=== PATIENT | female | born 1960 | race Caucasian/White ===

== ENCOUNTER 2016-02-26 11:20 | Emergency (ER) | payer MEDICAID ==
[2016-02-26] MEDS ORDERED: methylPREDNISolone SUCCINATE 125 MG/2 ML VIAL IVP STA (12:31)
[2016-02-26] MEDS ORDERED: PROCHLORPERAZINE 10 MG/2 ML VIAL IVP STA (12:31)
[2016-02-26] MEDS ORDERED: diphenhydrAMINE INJ 50 MG/ML VIAL IVP STA (12:31)
[2016-02-26] MEDS ORDERED: SODIUM CHLORIDE 0.9% 1,000 ML IV ONE ×2 (12:31→12:39)
[2016-02-26] MEDS ORDERED: ONDANSETRON 4 MG/2 ML VIAL IVP STA (12:34)
[2016-02-26] MEDS ORDERED: methylPREDNISolone SUCCINATE 125 MG/2 ML VIAL IVP ONE (12:39)
[2016-02-26] MEDS ORDERED: diphenhydrAMINE INJ 50 MG/ML VIAL ONE (12:39)
[2016-02-26] MEDS ORDERED: ONDANSETRON 4 MG/2 ML VIAL ONE (12:39)
[2016-02-26] MEDS ORDERED: PROCHLORPERAZINE 10 MG/2 ML VIAL ONE (12:39)
== END 2016-02-26 14:30 | disposition home or self-care (01) ==
DX: G43.909 Migraine, unspecified, not intractable, without status migrainosus (principal); D49.7 Neoplasm of unspecified behavior of endocrine glands and other parts of nervous system; J44.9 Chronic obstructive pulmonary disease, unspecified; J45.909 Unspecified asthma, uncomplicated; Z87.891 Personal history of nicotine dependence

== ENCOUNTER 2016-04-08 | Outpatient (CLI) | payer MEDICAID | END 2016-04-08 09:13 | disposition critical access hospital (66) | DX: N93.9 Abnormal uterine and vaginal bleeding, unspecified (principal) | CPT/HCPCS: A0425; A0429 ==

== ENCOUNTER 2016-04-08 09:30 | Emergency (ER) | payer MEDICAID | END 2016-04-08 11:05 | disposition home or self-care (01) | DX: S31.41XA Laceration without foreign body of vagina and vulva, initial encounter (principal); X58.XXXA Exposure to other specified factors, initial encounter; Z85.41 Personal history of malignant neoplasm of cervix uteri; J44.9 Chronic obstructive pulmonary disease, unspecified; J45.909 Unspecified asthma, uncomplicated; K21.9 Gastro-esophageal reflux disease without esophagitis; M54.9 Dorsalgia, unspecified; G89.29 Other chronic pain; Z87.891 Personal history of nicotine dependence ==

== ENCOUNTER 2016-04-17 17:30 | Outpatient (CLI) | payer MEDICAID ==
[2016-04-17] MEDS ORDERED: IOPAMIDOL-300 100 ML VIAL IVP ONE (19:37)
== END 2016-04-17 17:31 | disposition home or self-care (01) ==
DX: G43.909 Migraine, unspecified, not intractable, without status migrainosus (principal)
CPT/HCPCS: 70460; Q9967

== ENCOUNTER 2016-06-07 23:41 | Emergency (ER) | payer MEDICAID ==
[2016-06-07] MEDS ORDERED: oxyCOD/ACETAMIN 5 MG/325 MG TABLET PO STA (23:53)
[2016-06-08] MEDS ORDERED: oxyCOD/ACETAMIN 5 MG/325 MG TABLET PO ONE (00:05)
== END 2016-06-08 01:24 | disposition home or self-care (01) ==
DX: M23.92 Unspecified internal derangement of left knee (principal); Y93.E6 Activity, residential relocation; R03.0 Elevated blood-pressure reading, without diagnosis of hypertension; Z87.891 Personal history of nicotine dependence
CPT/HCPCS: 73564; 99283; A9270

== ENCOUNTER 2016-06-26 18:50 | Outpatient (CLI) | payer MEDICAID ==
--- NOTE | 2016-06-27 10:22 | Ultrasound Report ---
ABDOMINAL ULTRASOUND: 06/26/2016 CLINICAL INDICATION: Chronic pain. TECHNIQUE: Real-time scanning was performed with sales and marketing representative static images obtained. FINDINGS: The liver is enlarged, measuring 19 cm, with diffuse increase of echogenicity, compatible with fatty infiltration. No focal parenchymal lesion is seen. No intrahepatic biliary dilatation is present. The common bile duct measures 9 mm. The patient is status post cholecystectomy. The panc reas is obscured by bowel gas. The kidneys are unremarkable, with the right measuring 11.0 cm and th e left measuring 9.7 cm. The spleen measures 8.6 cm, and demonstrates normal echotexture. The visua lized abdominal aorta is normal in caliber. The inferior vena cava is unremarkable. No free fluid i s present. IMPRESSION: FATTY INFILTRATION OF THE LIVER. CHANGES OF CHOLECYSTECTOMY. JOB #: [id number] EXT JOB #:[id number]
== END 2016-06-26 18:51 | disposition home or self-care (01) ==
LOC: DI 18:50
PROVIDERS: ATTEND Physician Assistant
DX: K76.0 Fatty (change of) liver, not elsewhere classified (principal); Z90.49 Acquired absence of other specified parts of digestive tract
CPT/HCPCS: 76700

== ENCOUNTER 2016-07-03 10:29 | Outpatient (CLI) | payer MEDICAID | END 2016-07-03 10:30 | disposition home or self-care (01) | DX: J44.9 Chronic obstructive pulmonary disease, unspecified (principal) ==

== ENCOUNTER 2016-07-24 10:45 | Outpatient (CLI) | payer MEDICAID ==
--- NOTE | 2016-07-24 13:44 | XRAY Report ---
THREE VIEW LEFT KNEE: 07/24/2016 CLINICAL INDICATION: Pain. FINDINGS: Standing AP, lateral, and sunrise views of the left knee are compared to previous films of 06/08/2016. There is no evidence of fracture or dislocation. The joint spaces are preserved. No effusion is prese nt. IMPRESSION: NORMAL LEFT KNEE. JOB #: [id number] EXT JOB #:[id number]
== END 2016-07-24 10:46 | disposition home or self-care (01) ==
LOC: DI.N 10:45
PROVIDERS: ATTEND Physician Assistant
DX: M25.562 Pain in left knee (principal)

== ENCOUNTER 2016-09-09 13:19 | Outpatient (CLI) | payer MEDICAID ==
[2016-09-09 19:44] LABS: BASOPHILS # (AUTO) 0.1 10^3/uL (0.0-0.1); BASOPHILS % (AUTO) 1.8 %; EOSINOPHILS # (AUTO) 0.2 10^3/uL (0.0-0.7); EOSINOPHILS % (AUTO) 4.8 %; HCT - HEMATOCRIT 38.7 % (37.0-47.0); HGB - HEMOGLOBIN 12.6 g/dL (12.0-16.0); LYMPHOCYTES # (AUTO) 1.4 10^3/uL (1.5-3.5); LYMPHOCYTES % (AUTO) 30.8 %; MEAN CORPUSCULAR HEMOGLOBIN 30.1 pg (27.0-31.0); MEAN CORPUSCULAR HGB CONC 32.6 g/dL (32.0-36.0); MEAN CORPUSCULAR VOLUME 92.3 fL (81.0-99.0); MONOCYTES # (AUTO) 0.4 10^3/uL (0.0-1.0); MONOCYTES % (AUTO) 8.7 %; NEUTROPHILS # (AUTO) 2.5 10^3/uL (1.5-6.6); NEUTROPHILS % (AUTO) 53.9 %; RED BLOOD COUNT 4.19 10^6/uL (4.20-5.40); RED CELL DISTRIBUTION WIDTH 14.3 % (12.0-15.0); UNCORRECTED WHITE BLOOD COUNT 4.6 x10^3/uL; WHITE BLOOD COUNT 4.6 x10^3/uL (4.8-10.8)
[2016-09-09 19:54] LABS: ALBUMIN/GLOBULIN RATIO 1.1 (1.0-2.2); BILIRUBIN,TOTAL 0.5 mg/dL (0.2-1.0); BUN - BLOOD UREA NITROGEN 16 mg/dL (6-20); CALCIUM 8.7 mg/dL (8.5-10.3); CARBON DIOXIDE - CO2 28 mmol/L (21-32); CHLORIDE 106 mmol/L (101-111); CHOL/HDL RATIO 3.3 (<4.4); CHOLESTEROL 122 mg/dL; CREATININE 0.7 mg/dL (0.4-1.0); GFR - MDRD 87 (>89); GLUCOSE 93 mg/dL (70-100); HDL CHOLESTEROL 37 mg/dL; LDL/HDL RATIO 1.7 (<4.4); SODIUM 139 mmol/L (135-145); TOTAL PROTEIN 6.9 g/dL (6.7-8.2); TRIGLYCERIDES 103 mg/dL; VLDL CHOLESTEROL 21 mg/dL
== END 2016-09-09 13:20 | disposition home or self-care (01) ==
LOC: LAB.N 13:19
PROVIDERS: ATTEND Physician Assistant
DX: I10 Essential (primary) hypertension (principal); B19.20 Unspecified viral hepatitis C without hepatic coma; J44.9 Chronic obstructive pulmonary disease, unspecified; Z87.891 Personal history of nicotine dependence
CPT/HCPCS: 36415; 80053; 80061; 84443; 85025

== ENCOUNTER 2017-03-14 21:05 | Emergency (ER) | payer MEDICAID ==
[2017-03-14] MEDS ORDERED: oxyCODONE 5 MG TABLET PO STA (21:31)
[2017-03-14] MEDS ORDERED: CYCLOBENZAPRINE 10 MG TABLET PO STA (21:31)
--- NOTE | 2017-03-14 21:33 | ED Physician Documentation ---
History of Present Illness - Stated complaint Stated Complaint: FALL OFF PORCH - Chief complaint Chief Complaint: General - History obtained from History obtained from: Patient, Family - History of Present Illness Timing: How many days ago (2) Pain level max: 10 Pain level now: 10 Improved by: rest Worsened by: movement - Additonal information Additional information: Patient is a 57-year-old female who presents to the emergency department after a fall at home 2 days ago. Fell backwards off a porch onto a metal bar. Initially had some discomfort but is worsened over the past several days. Has been taking Motrin at home without relief. Review of Systems Constitutional: denies: Fever, Chills Nose: denies: Rhinorrhea / runny nose, Congestion Throat: denies: Sore throat Cardiac: denies: Chest pain / pressure Respiratory: denies: Dyspnea, Cough, Hemoptysis, Wheezing GI: denies: Abdominal Pain, Nausea, Vomiting, Diarrhea Skin: denies: Rash Musculoskeletal: denies: Neck pain Neurologic: denies: Focal weakness, Numbness, Headache PD PAST MEDICAL HISTORY - Past Medical History Past Medical History: Yes Respiratory: Asthma, COPD Neuro: Headache/migraine Endocrine/Autoimmune: None GI: GERD : None Psych: Depression, Anxiety Musculoskeletal: Fatigue, Chronic back pain Derm: None - Past Surgical History Past Surgical History: Yes 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, 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 - Present Medications Home Medications: Ambulatory Orders Medication Instructions Recorded Confirmed buPROPion [Wellbutrin Sr] 150 mg PO BID 04/08/16 03/14/17 Albuterol Sulf [Ventolin Hfa 2 puffs PO PRN PRN 03/14/17 03/14/17 Inhaler] Cyclobenzaprine [Flexeril] 10 mg PO TID PRN #20 tablet 03/14/17 Oxycodone HCl/Acetaminophen 1 - 2 each PO Q6H PRN #10 tablet 03/14/17 [Percocet 5-325 mg Tablet] - Allergies Allergies/Adverse Reactions: Allergies Allergy/AdvReac Type Severity Reaction Status Date / Time acetaminophen [From Vicodin] Allergy Rash Verified 03/14/17 21:15 hydrocodone bitartrate * Allergy Rash Verified 03/14/17 21:15 [From Vicodin] - Social History Does the pt smoke?: No Smoking Status: Never smoker Does the pt drink ETOH?: No Does the pt have substance abuse?: No - Immunizations Immunizations are current?: Yes - POLST Patient has POLST: No PD ED PE NORMAL - Vitals Vital signs reviewed: Yes - General General: Alert and oriented X 3, No acute distress, Well developed/nourished - HEENT HEENT: Atraumatic, PERRL, Moist mucous membranes - Neck Neck: Supple, no meningeal sign, No bony TTP, Other (FROM without pain) - Cardiac Cardiac: RRR - Respiratory Respiratory: No respiratory distress, Clear bilaterally - Abdomen Abdomen: Soft, Non tender, Non distended - Back Back: No spinal TTP (No midline tenderness. There is paraspinal tenderness upper thoracic to mid lumbar spine, left side. Also tenderness over the left posterior ribs, approximately 6 through 10. No crepitus. No bruising.) - Extremities Extremities: No deformity, Normal ROM s pain - Neuro Neuro: Alert and oriented X 3 Results - Vitals Vitals: Vital Signs - 24 hr 03/14/17 03/14/17 21:07 22:51 Temperature 36.3 C L 36.6 C Heart Rate 94 85 Respiratory 17 18 Rate Blood Pressure 169/102 H 132/88 H O2 Saturation 100 98 Oxygen O2 Source Room air - Rads (name of study) Left rib with chest x-ray Radiology: Prelim report reviewed, EMP read contemporaneously, See rad report ( No acute abnormality) PD MEDICAL DECISION MAKING - ED course Complexity details: reviewed results, re-evaluated patient, considered differential, d/w patient, d/w family ED course: Patient is a 57-year-old female who presents to the emergency department with what appears to be a back strain after a fall. No acute findings on x-ray. No pneumothorax, hemothorax. No evidence of spinal fracture. Pain well controlled here. Will place on pain medication and muscle relaxants for home and follow-up with her PCP. Ambulating well. No neurological deficits. No evidence of cauda equina or epidural abscess. Patient counseled regarding signs and symptoms for which I believe and urgent re-evaluation would be necessary. Patient with good understanding of and agreement to plan and is comfortable going home at this time This document was made in part using voice recognition software. While efforts are made to proofread this document, sound alike and grammatical errors may occur. Departure - Departure Disposition: Home, Self Care Clinical Impression: Back strain Qualifiers: Encounter type: initial encounter Qualified Code(s): S39.012A - Strain of muscle, fascia and tendon of lower back, initial encounter Condition: Good Instructions: ED Sprain Strain Lumbar Follow-Up: your,doctor in 1 week [Other] Prescriptions: Cyclobenzaprine [Flexeril] 10 mg PO TID PRN #20 tablet PRN Reason: Spasms Oxycodone HCl/Acetaminophen [Percocet 5-325 mg Tablet] 1 - 2 each PO Q6H PRN # 10 tablet PRN Reason: pain Comments: Return if you worsen. This should improve over the next few days. Do not drink alcohol or drive while on narcotic pain medicine. Note that many narcotic pain relievers also contain tylenol/acetaminophen. Please ensure that your total dose of acetaminophen from all sources does not exceed 3 grams (3000mg) per day. You may constipated on this medication, take a stool softener such as "Colace" twice a day while you are on it. Also recommend a gfne-gza-tgjrybn laxative such as senna or MiraLAX any day that you do not have a bowel movement. If you received narcotic pain medication in the emergency department, do not drive or operate machinery for the next 24 hours. Discharge Date/Time: 03/14/17 22:51
[2017-03-14] MEDS ORDERED: KETOROLAC 60 MG/2 ML VIAL IM STA (22:28)
--- NOTE | 2017-03-14 22:35 | XRAY Report ---
EXAM: LEFT RIB RADIOGRAPHY EXAM DATE: 03/14/2017 10:09 PM. CLINICAL HISTORY: Fall 2 days ago. Left lower rib pain. COMPARISON: 07/03/2016. TECHNIQUE: 1 view of the chest and 4 views of the ribs. FINDINGS: Bones: Normal. No fracture or bone lesion. Lungs: No focal opacities. No pneumothorax. No pleural effusions. Mediastinum: Heart and mediastinal contours are unremarkable. Other: None. IMPRESSION: Normal chest and rib radiography. [facility] Referring Provider Line: [phone] SITE ID: [id number]
[2017-03-14 22:52] VITALS: BP 132/88
== END 2017-03-14 22:51 | disposition home or self-care (01) ==
LOC: ED 21:05
DX: S39.012A Strain of muscle, fascia and tendon of lower back, initial encounter (principal); W17.89XA Other fall from one level to another, initial encounter; W22.09XA Striking against other stationary object, initial encounter; Y92.008 Other place in unspecified non-institutional (private) residence as the place of occurrence of the external cause
CPT/HCPCS: 71101; 96372; 99283; A9270

== ENCOUNTER 2017-07-29 18:34 | Emergency (ER) | payer MEDICAID | END 2017-07-29 19:28 | disposition left against medical advice (07) | LOC: ED 18:34 | DX: Z53.21 Procedure and treatment not carried out due to patient leaving prior to being seen by health care provider (principal) ==

== ENCOUNTER 2017-08-28 22:27 | Emergency (ER) | payer MEDICAID ==
[2017-08-28] MEDS ORDERED: SODIUM CHLORIDE 0.9% 1,000 ML IV ONE (22:47)
[2017-08-28] MEDS ORDERED: METOCLOPRAMIDE 10 MG/2 ML VIAL IVP STA (22:47)
[2017-08-28] MEDS ORDERED: diphenhydrAMINE INJ 50 MG/ML VIAL IVP STA (22:47)
[2017-08-28] MEDS ORDERED: KETOROLAC 60 MG/2 ML VIAL IVP STA (22:47)
--- NOTE | 2017-08-28 23:10 | ED Physician Documentation ---
PD HPI HEADACHE - Stated complaint Stated Complaint: HEADACHE/NAUSEA - Chief complaint Chief Complaint: Neuro - History obtained from History obtained from: Patient - History of Present Illness Timing - onset: How many days ago (2) Timing - details: Gradual onset, Still present Quality: Aching Associated symptoms: Nausea. No: Fever, Stiff neck, Vomiting, Weakness, Syncope Improved by: Dark room Worsened by: Light, Noise Similar symptoms before: Diagnosis Recently seen: Not recently seen - Additional information Additional information: Patient is a 57 year old female with a history of migraines who is presenting to the emergency department for a headache. Patient states that it is like her similar headaches but it will not go away. Patient denies any neurological deficits. Patient states that it started slowly and became progressively worse. Review of Systems Ten Systems: 10 systems reviewed and negative Constitutional: denies: Fever, Chills Eyes: reports: Photophobia Neurologic: reports: Headache. 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 - Present Medications Home Medications: Ambulatory Orders Medication Instructions Recorded Confirmed buPROPion [Wellbutrin Sr] 150 mg PO BID 04/08/16 08/28/17 Albuterol Sulf [Ventolin Hfa 2 puffs PO PRN PRN 03/14/17 08/28/17 Inhaler] Cyclobenzaprine [Flexeril] 10 mg PO TID PRN #20 tablet 03/14/17 08/28/17 Oxycodone HCl/Acetaminophen 1 - 2 each PO Q6H PRN #10 tablet 03/14/17 08/28/17 [Percocet 5-325 mg Tablet] - Allergies Allergies/Adverse Reactions: Allergies Allergy/AdvReac Type Severity Reaction Status Date / Time acetaminophen [From Vicodin] Allergy Rash Verified 08/28/17 22:38 hydrocodone bitartrate * Allergy Rash Verified 08/28/17 22:38 [From Vicodin] - Social History Does the pt smoke?: No Smoking Status: Never smoker Does the pt drink ETOH?: No Does the pt have substance abuse?: No - Immunizations Immunizations are current?: Yes - POLST Patient has POLST: No PD ED PE NORMAL - Vitals Vital signs reviewed: Yes - General General: Alert and oriented X 3 - HEENT HEENT: Atraumatic - Neck Neck: Supple, no meningeal sign - Cardiac Cardiac: RRR - Respiratory Respiratory: No respiratory distress - Abdomen Abdomen: Non distended - Derm Derm: Normal color, Warm and dry - Extremities Extremities: No deformity - Neuro Neuro: Alert and oriented X 3, insurance account executive 2-12 intact, No motor deficit, Normal speech Eye Opening: Spontaneous Motor: Obeys Commands Verbal: Oriented GCS Score: 15 PD ED PE EXPANDED - General General: Alert, In Pain Results - Vitals Vitals: Vital Signs - 24 hr 08/28/17 22:37 Temperature 36.8 C Heart Rate 100 Respiratory 18 Rate Blood Pressure 135/89 H O2 Saturation 100 Oxygen O2 Source Room air PD MEDICAL DECISION MAKING - ED course Complexity details: reviewed old records, reviewed results, re-evaluated patient , considered differential, d/w patient ED course: Patient was seen and examined at bedside. Patient was treated with ns bolus, toradol, reglan and bendaryl. Patient was allowed to rest and slept for about two hours. When patient was woken up she stated that she still had some pain. Patient would best benefit from sleep and was stable for discharge home. Patient had no sign of infection or neurological deficits. - Sepsis Event Vital Signs: Vital Signs - 24 hr 08/28/17 22:37 Temperature 36.8 C Heart Rate 100 Respiratory 18 Rate Blood Pressure 135/89 H O2 Saturation 100 Oxygen O2 Source Room air Departure - Departure Disposition: 01 Home, Self Care Clinical Impression: Headache, Migraine Condition: Good Instructions: ED Headache Migraine Follow-Up: primary,care provider [Other] - Within 3 Days Comments: Your symptoms today are being caused by a migraine headache. the most important things that you can do is to stay well hydrated and get plenty of sleep. You should follow up with your doctor if symptoms persist. You may return to the emergency department at any time for new, worsening or uncontrollable symptoms.
[2017-08-29 00:56] VITALS: BP 129/71
== END 2017-08-29 00:45 | disposition home or self-care (01) ==
LOC: ED 22:27
DX: G43.909 Migraine, unspecified, not intractable, without status migrainosus (principal)
CPT/HCPCS: 96361; 96374; 96375; 99283; 99284; J1200; J2765

== ENCOUNTER 2018-05-27 03:45 | Emergency (ER) | payer MEDICAID ==
--- NOTE | 2018-05-27 03:51 | ED Physician Documentation ---
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 No: Neck pain, Weakness, Paresthesias, Dyspnea, Nausea / vomiting Symptoms improve with: Rest Worsens with: Movement, Palpation Contributing factors: No: Anticoagulated, Intoxicated Similar symptoms before: Has not had sx before Recently seen: Not recently seen - Additional information Additional information: went to stand up from toilet, right foot got caught on carpeting, causing her to fall. Her right ankle twisted and she c/o right ankle pain. She also struck face on sink and sustained LOC, she estimates less than 1 minute. She c/o headache and facial pain Review of Systems Eyes: reports: Reviewed and negative Ears: reports: Reviewed and negative Nose: reports: Reviewed and negative Throat: denies: Dental pain / toothache, Oral lesions / sores Cardiac: reports: Reviewed and negative Respiratory: reports: Reviewed and negative GI: reports: Reviewed and negative : denies: Incontinent Skin: reports: Laceration (s) (nasal bridge) Musculoskeletal: reports: Joint pain, Joint swelling, Pain with weight bearing. denies: Neck pain, Back pain Neurologic: reports: Headache, Head injury, LOC. 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 - Present Medications Home Medications: Ambulatory Orders Medication Instructions Recorded Confirmed buPROPion [Wellbutrin Sr] 150 mg PO BID 04/08/16 05/27/18 Albuterol 2.5 mg INH Q4H PRN 05/27/18 05/27/18 oxyCODONE [Roxicodone] 5 - 10 mg PO Q6H PRN #20 tablet 05/27/18 - Allergies Allergies/Adverse Reactions: Allergies Allergy/AdvReac Type Severity Reaction Status Date / Time acetaminophen [From Vicodin] Allergy Rash Verified 05/27/18 03:51 hydrocodone bitartrate * Allergy Rash Verified 05/27/18 03:51 [From Vicodin] - Social History Does the pt smoke?: No Smoking Status: Never smoker Does the pt drink ETOH?: No Does the pt have substance abuse?: No - Immunizations Immunizations are current?: Yes - POLST Patient has POLST: No PD ED PE NORMAL - Vitals Vital signs reviewed: Yes - General General: Alert and oriented X 3, No acute distress, Well developed/nourished - HEENT HEENT: PERRL, EOMI, Ears normal, Moist mucous membranes, Dentition benign - Neck Neck: No bony TTP - Cardiac Cardiac: RRR, No murmur - Respiratory Respiratory: No respiratory distress, Clear bilaterally - Abdomen Abdomen: Soft, Non tender - Back Back: No spinal TTP - Neuro Neuro: Alert and oriented X 3, compliance manager 2-12 intact, No motor deficit, No sensory deficit, Normal speech Eye Opening: Spontaneous Motor: Obeys Commands Verbal: Oriented GCS Score: 15 PD ED PE EXPANDED - HEENT HEENT: PERRL, EOMI, Other (bilateral infraorbital echymosis and right supraorbital echymosis. right forehead echymosis. mild bony tenderness correlating with these areas of echymosis without crepitus or bony step-off) HEENT Visual: 1 - laceration (1 cm length) - Extremities Extremities: Tenderness, Limited ROM, Swelling, Right ankle (swelling, tenderness is greatest at lateral malleolus) Results - Vitals Vitals: Vital Signs - 24 hr 05/27/18 05/27/18 03:47 05:27 Temperature 37.1 C 37 C Heart Rate 101 H 81 Respiratory 17 16 Rate Blood Pressure 155/84 H 121/72 O2 Saturation 94 95 Oxygen O2 Source Room air - Rads (name of study) CTH Radiology: Prelim report reviewed, See rad report CT facial bones Radiology: Prelim report reviewed, See rad report right ankle xrays Radiology: Prelim report reviewed, See rad report right tib/fib xrays Radiology: Prelim report reviewed, See rad report Procedures - Laceration (location) Nose Length in cm: 1 Wound type: Linear Neurovascular status: Sensory intact, Vascular intact Skin layer closure: Dermabond Other: Patient tolerated well, No complications, Tetanus UTD Complexity: Simple - Splint (location) Lower extremity right Splint applied by: Tech Type of splint: Fiberglass, Sugar tong Other: Patient tolerated well, No complications, Neurovascular intact, Good alignment, Crutches provided PD MEDICAL DECISION MAKING - ED course Complexity details: reviewed results, re-evaluated patient, considered differential, d/w patient Departure - Departure Disposition: 01 Home, Self Care Clinical Impression: Ankle fracture, right Qualifiers: Encounter type: initial encounter Fracture type: closed Qualified Code(s): S82.891A - Other fracture of right lower leg, initial encounter for closed fracture Condition: Good Instructions: ED Crutch Walking, ED Contusion Face, ED Laceration Facial Skin Glue, ED Splint Care Fiberglass, ED Fx Ankle Lateral Malleolus Follow-Up: Masoud Medina MD [Provider Admit Priv/Credential] - Within 1 week Prescriptions: oxyCODONE [Roxicodone] 5 - 10 mg PO Q6H PRN #20 tablet PRN Reason: Pain Discharge Date/Time: 05/27/18 06:12
[2018-05-27] MEDS ORDERED: oxyCODONE 5 MG TABLET PO STA (04:17)
--- NOTE | 2018-05-27 05:03 | XRAY Report ---
Reason: fall, pain, tenderness, swelling Procedure Date: 05/27/2018 Accession Number: [id number] / [id number] Procedure: XR - Ankle 3 View RT CPT Code: FULL RESULT: EXAM: RIGHT ANKLE RADIOGRAPHY EXAM DATE: 05/27/2018 04:54 AM. CLINICAL HISTORY: Fall, pain, tenderness, swelling. COMPARISON: None. TECHNIQUE: 3 views. FINDINGS: Bones: Fracture of the lateral malleolus. There is lateral displacement of the distal fracture fragment measuring 2 mm. Joints: No dislocation seen. Possible small joint effusion. Soft Tissues: Soft tissue swelling. IMPRESSION: 1. Fracture of the lateral malleolus with 2 mm lateral displacement of the distal fracture fragment. 2. Possible small joint effusion. [facility]
--- NOTE | 2018-05-27 05:04 | XRAY Report ---
Reason: fall, pain, tenderness, swelling Procedure Date: 05/27/2018 Accession Number: [id number] / [id number] Procedure: XR - Tib/Fib RT CPT Code: FULL RESULT: EXAM: RIGHT TIBIA/FIBULA RADIOGRAPHY EXAM DATE: 05/27/2018 04:51 AM. CLINICAL HISTORY: Fall, pain, tenderness, swelling. COMPARISON: None. TECHNIQUE: 2 views. FINDINGS: Bones: Fracture of the lateral malleolus. Joints: No dislocation seen. Possible small ankle joint effusion. Soft Tissues: Soft tissue swelling. IMPRESSION: 1. Fracture of the lateral malleolus. See separate ankle report. [facility]
--- NOTE | 2018-05-27 05:20 | CT Report ---
Reason: fall, head injury with LOC Procedure Date: 05/27/2018 Accession Number: [id number] / [id number] Procedure: CT - HEAD WO CPT Code: FULL RESULT: EXAM: CT HEAD EXAM DATE: 05/27/2018 04:56 AM. CLINICAL HISTORY: Fall, head injury with LOC. COMPARISON: CT HEAD W/ 04/17/2016 5:43 PM. TECHNIQUE: Multiaxial CT images were obtained from the foramen magnum to the vertex. Reformats: Sagittal and coronal. IV contrast: None. In accordance with CT protocol optimization, one or more of the following dose reduction techniques were utilized for this exam: automated exposure control, adjustment of mA and/or KV based on patient size, or use of iterative reconstructive technique. FINDINGS: Parenchyma: No intraparenchymal hemorrhage. No evidence of mass, midline shift, or CT findings of infarction. Gardner-white differentiation is distinct. There is mild to moderate chronic microvascular change scattered in the white matter of both cerebral hemispheres. This appears stable. Extraaxial Spaces: Normal for age. No subdural or epidural collections identified. Ventricles: Normal in size and position. Sinuses and Orbits: Imaged paranasal sinuses, orbits, and mastoids show no significant abnormality. Bones: No evidence of fracture or calvarial defect. Other: None. IMPRESSION: 1. No acute intracranial abnormality. 2. No skull fracture. 3. Mild to moderate chronic microvascular ischemic change. 4. No intracranial mass lesion, mass-effect, or hydrocephalus. 5. No significant change compared to 04/17/2016. [facility]
--- NOTE | 2018-05-27 05:26 | CT Report ---
Reason: fall, facial injury Procedure Date: 05/27/2018 Accession Number: [id number] / [id number] Procedure: CT - MAXILLOFACIAL WO CPT Code: FULL RESULT: EXAM: CT MAXILLOFACIAL WITHOUT CONTRAST EXAM DATE: 05/27/2018 04:57 AM. CLINICAL HISTORY: Fall, facial injury. COMPARISONS: None. TECHNIQUE: Thin-section axial images were acquired of the face without contrast. Post-processing: Coronal and sagittal reformats. Other: None. In accordance with CT protocol optimization, one or more of the following dose reduction techniques were utilized for this exam: automated exposure control, adjustment of mA and/or KV based on patient size, or use of iterative reconstructive technique. FINDINGS: Soft Tissue: There is mild soft tissue swelling in the right cheek region. Orbits: Symmetric and unremarkable. Bones: No fracture or bone lesion. Temporomandibular Joints: The temporomandibular joints are symmetric and normally located. Sinuses: There is mild mucosal thickening in both maxillary sinuses and a few ethmoid air cells. Sinuses are otherwise clear. No fluid levels. Other: None. IMPRESSION: No evidence of a facial bone fracture. [facility]
[2018-05-27 05:28] VITALS: BP 121/72
[2018-05-27] MEDS ORDERED: oxyCODONE/ACET 5/325 Prepack 4 PO STA (06:03)
== END 2018-05-27 06:12 | disposition home or self-care (01) ==
LOC: ED 03:45
DX: S82.891A Other fracture of right lower leg, initial encounter for closed fracture (principal); S01.21XA Laceration without foreign body of nose, initial encounter; W01.0XXA Fall on same level from slipping, tripping and stumbling without subsequent striking against object, initial encounter; X50.1XXA Overexertion from prolonged static or awkward postures, initial encounter; Y92.009 Unspecified place in unspecified non-institutional (private) residence as the place of occurrence of the external cause
CPT/HCPCS: 12011; 29515; 70450; 70486; 73590; 73610; 99283; A9270

== ENCOUNTER 2018-06-01 14:48 | Emergency (ER) | payer MEDICAID ==
[2018-06-01 14:55] VITALS: BP 171/79
--- NOTE | 2018-06-01 15:10 | ED Physician Documentation ---
PD HPI LOWER EXT INJURY - Stated complaint Stated Complaint: R FOOT PX - Chief complaint Chief Complaint: Ext Problem - History obtained from History obtained from: Patient, Family - History of Present Illness PD HPI LOW EXT INJURY LOCATION: Right, Ankle Type of injury: Fall Where injury occurred: Home Timing - onset: How many days ago (5) Timing - duration: Days (5) Timing - details: Abrupt onset, Still present Improved by: Rest, Immobilization Worsened by: Moving, Palpating Associated symptoms: Swelling Contributing factors: No: Anticoagulated Similar symptoms before: Has not had sx before Recently seen: Emergency Dept - Additional information Additional information: 58-year-old female had a fall fracturing her right ankle she was seen in the emergency department and a sugar tong splint was placed. The patient complains of swelling and pain and she is remove the splint last night she continues to have pain and swelling and a sensation of burning on the lateral aspect of the calf. Review of Systems Constitutional: denies: Fever Ears: denies: Ear pain Nose: denies: Congestion Throat: denies: Sore throat Cardiac: denies: Chest pain / pressure GI: denies: Vomiting Musculoskeletal: reports: Extremity pain, Joint pain, Extremity swelling, Joint swelling. 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, 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 - Present Medications Home Medications: Ambulatory Orders Medication Instructions Recorded Confirmed buPROPion [Wellbutrin Sr] 150 mg PO BID 04/08/16 05/27/18 Albuterol 2.5 mg INH Q4H PRN 05/27/18 05/27/18 Oxycodone HCl/Acetaminophen 1 - 2 each PO Q6H PRN #14 tablet 06/01/18 [Percocet 5-325 mg Tablet] - Allergies Allergies/Adverse Reactions: Allergies Allergy/AdvReac Type Severity Reaction Status Date / Time acetaminophen [From Vicodin] Allergy Rash Verified 05/27/18 03:51 hydrocodone bitartrate * Allergy Rash Verified 06/01/18 14:54 [From Vicodin] - Social History Does the pt smoke?: No Smoking Status: Never smoker Does the pt drink ETOH?: No Does the pt have substance abuse?: No - Immunizations Immunizations are current?: Yes - POLST Patient has POLST: No PD ED PE NORMAL - Vitals Vital signs reviewed: Yes (tachy and hypertensive ) - General General: Alert and oriented X 3, No acute distress, Well developed/nourished - HEENT HEENT: Other (there are multiple areas of ecchymosis to the face that appear to be healing well.) - Respiratory Respiratory: No respiratory distress - Derm Derm: Normal color, Warm and dry, No rash - Extremities Extremities: Other (The dressing is removed from the leg to reveal swollen tissues that appear constricted. There is dry lichenified skin to the foot and the distal n/v is intact. ) - Neuro Neuro: Alert and oriented X 3, resolution manager 2-12 intact, No motor deficit, No sensory deficit, Normal speech Eye Opening: Spontaneous Motor: Obeys Commands Verbal: Oriented GCS Score: 15 - Psych Psych: Normal mood, Normal affect Results - Vitals Vitals: Vital Signs - 24 hr 06/01/18 14:52 Temperature 36.5 C Heart Rate 101 H Respiratory 20 Rate Blood Pressure 171/79 H O2 Saturation 96 Oxygen O2 Source Room air PD MEDICAL DECISION MAKING - ED course Complexity details: reviewed results, re-evaluated patient, considered differential, d/w patient, d/w family ED course: 58-year-old female with a tight fitting splint has the splint removed and we have replaced the sugar tong with a posterior splint which is more comfortable for the patient. She is out of pain medication we will refill that as well she does have an appointment to see the orthopedic doctors at the end of the week. Departure - Departure Disposition: 01 Home, Self Care Clinical Impression: Ankle fracture, right Qualifiers: Encounter type: initial encounter Fracture type: closed Qualified Code(s): S82.891A - Other fracture of right lower leg, initial encounter for closed frac ture Condition: Stable Instructions: ED Fx Ankle Lateral Malleolus Follow-Up: [facility] [Provider Group] Prescriptions: Oxycodone HCl/Acetaminophen [Percocet 5-325 mg Tablet] 1 - 2 each PO Q6H PRN #14 tablet PRN Reason: pain
== END 2018-06-01 16:21 | disposition home or self-care (01) ==
LOC: ED 14:48
DX: S82.891A Other fracture of right lower leg, initial encounter for closed fracture (principal); W19.XXXA Unspecified fall, initial encounter; Y92.009 Unspecified place in unspecified non-institutional (private) residence as the place of occurrence of the external cause
CPT/HCPCS: 29505; 99283

== ENCOUNTER 2019-07-13 20:44 | Emergency (ER) | payer MEDICAID ==
--- NOTE | 2019-07-13 21:43 | ED Physician Documentation ---
PD HPI LOWER EXT INJURY - Stated complaint Stated Complaint: RT HIP/LEG PX - Chief complaint Chief Complaint: Ext Problem - History obtained from History obtained from: Patient - History of Present Illness PD HPI LOW EXT INJURY LOCATION: Right, Hip Type of injury: No: Fall, Twist Timing - onset: How many weeks ago (3) Timing - duration: Weeks (3) Timing - details: Gradual onset, Still present Worsened by: Moving (pain lateral hip with walking and to palpate the area. No redness nor swelling. Not aware of particular injury.), Palpating Associated symptoms: No: Weakness, Numbness, Discolored Similar symptoms before: Has not had sx before Recently seen: Not recently seen Review of Systems Constitutional: denies: Fever, Chills Cardiac: denies: Chest pain / pressure Respiratory: denies: Dyspnea, Cough GI: denies: Vomiting, Diarrhea Skin: reports: Lesions (got bit by some bug 2 days ago on right lower abd, with abrupt discomfort and itching. The redness has gotten bigger for 2 days. 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, 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 - Present Medications Home Medications: Ambulatory Orders Medication Instructions Recorded Confirmed buPROPion [Wellbutrin Sr] 150 mg PO BID PRN 04/08/16 05/27/18 Albuterol 2.5 mg INH Q4H PRN 05/27/18 05/27/18 Oxycodone HCl/Acetaminophen 1 - 2 each PO Q6H PRN #14 tablet 06/01/18 [Percocet 5-325 mg Tablet] Doxycycline Monohydrate 100 mg PO BID #14 tablet 07/13/19 Meloxicam [Mobic] 7.5 mg PO BID PRN #20 tablet 07/13/19 Oxycodone HCl/Acetaminophen 1 each PO Q6H PRN #20 tablet 07/13/19 [Percocet 5-325 mg Tablet] - Allergies Allergies/Adverse Reactions: Allergies Allergy/AdvReac Type Severity Reaction Status Date / Time acetaminophen [From Vicodin] Allergy Rash Verified 07/13/19 20:50 hydrocodone bitartrate * Allergy Rash Verified 07/13/19 20:50 [From Vicodin] - Social History Does the pt smoke?: No Smoking Status: Never smoker Does the pt drink ETOH?: No Does the pt have substance abuse?: No - Immunizations Immunizations are current?: Yes - POLST Patient has POLST: No PD ED PE NORMAL - Vitals Vital signs reviewed: Yes - General General: Alert and oriented X 3, No acute distress, Well developed/nourished - Abdomen Abdomen: Normal bowel sounds, Soft, Non distended, No organomegaly, Other (localized area 2-3 cm of redness and firm induration without fluctuance. Some warmth. There is some extension of redness asymmetrically superior to the area. Seems c/w bug bite but consider local infection as well. ) - Derm Derm: Normal color, Warm and dry - Extremities Extremities: No edema, Other (right lateral trochanter with tenderness, no redness nor warmth. Localized tender. Hurts with abduction of leg against resistance and with external rotation of upper leg. ) - Neuro Neuro: No motor deficit, No sensory deficit Results - Vitals Vitals: Vital Signs - 24 hr 07/13/19 07/13/19 07/13/19 20:46 21:54 22:02 Temperature 36.6 C Heart Rate 102 H Respiratory 18 17 17 Rate Blood Pressure 168/101 H O2 Saturation 94 07/13/19 07/13/19 07/13/19 22:12 22:39 22:42 Temperature 37.0 C Heart Rate 90 Respiratory 16 16 17 Rate Blood Pressure 151/100 H O2 Saturation 95 Oxygen O2 Source Room air - Rads (name of study) hip xray Radiology: Prelim report reviewed (no fracture; some arthritic changes), See rad report PD MEDICAL DECISION MAKING - ED course Complexity details: considered differential (has had the bursitis symptoms for weeks. Also with 2 days of redness/swelling abd wall following bug bite. I don't feel they are related. No redness nor swelling at lateral hip. ), d/w patient ED course: did local bursal injection with Kenalog and Lidocaine using 27 g needle after cleansing skin, without problems. Departure - Departure Disposition: 01 Home, Self Care Clinical Impression: Abdominal wall cellulitis Trochanteric bursitis Qualifiers: Laterality: right Qualified Code(s): M70.61 - Trochanteric bursitis, right hip Bug bite Qualifiers: Encounter type: initial encounter Qualified Code(s): W57.XXXA - Bitten or stung by nonvenomous insect and other nonvenomous arthropods, initial encounter Condition: Stable Record reviewed to determine appropriate education?: Yes Instructions: Trochanteric Bursitis, ED Sting Bite Insect Infec Prescriptions: Doxycycline Monohydrate 100 mg PO BID #14 tablet Meloxicam [Mobic] 7.5 mg PO BID PRN #20 tablet PRN Reason: Pain Oxycodone HCl/Acetaminophen [Percocet 5-325 mg Tablet] 1 each PO Q6H PRN #20 tablet PRN Reason: pain Comments: Both the hip wound, do gentle range of motion including side to side stretches to loosen up the muscles on the side of the hip. Use anti-inflammatory and we can try a different one than what you have been using and see if it works better. Meloxicam twice daily with food for the next 10 days. To that add Tylenol or oxycodone as needed for pain. I did do an injection with a steroid at the bursa area and this will have an effect into tomorrow and for the next several days. For the redness and swelling on the abdominal wall from the bug bite, we will treated with doxycycline in case it is getting infected. Warm towels to the area periodically. Recheck if the hip is not improved over the next several days and resolved within a week and if the bug bite area has not improved over the next several days either. Discharge Date/Time: 07/13/19 22:43
[2019-07-13] MEDS ORDERED: NAPROXEN 250 MG TABLET PO STA (21:54)
[2019-07-13] MEDS ORDERED: TRIAMCINOLONE 40 MG/ML VIAL IM STA (21:54)
[2019-07-13] MEDS ORDERED: LIDOCAINE 1%-EPI 1:100000 20 ML MDV SUBQ STA (21:54)
[2019-07-13] MEDS ORDERED: oxyCODONE 5 MG TABLET PO STA (21:54)
[2019-07-13] MEDS ORDERED: DOXYCYCLINE 100 MG TABLET PO STA (21:55)
--- NOTE | 2019-07-13 22:39 | XRAY Report ---
Reason: lateral right hip pain for 2-3 weeks Procedure Date: 07/13/2019 Accession Number: [id number] / [id number] Procedure: XR - Hip w/Pelvis 2-3V RT CPT Code: Final Report FULL RESULT: EXAM: RIGHT HIP RADIOGRAPHY EXAM DATE: 07/13/2019 10:11 PM. CLINICAL HISTORY: Lateral right hip pain for 2-3 weeks. COMPARISON: None. TECHNIQUE: One view hip and one view pelvis. FINDINGS: Bones: Normal. No fractures or bone lesion. Joints: There is moderate narrowing of the right hip joint space superiorly with subchondral sclerosis. Marginal spurring is seen along the superior aspect of the femoral head. Mild joint space narrowing noted on the left. Soft Tissues: Normal. No soft tissue swelling. IMPRESSION: 1. No right hip fracture or dislocation. 2. Moderate right and mild left hip osteoarthritis. RADIA
[2019-07-13 22:40] VITALS: BP 151/100
== END 2019-07-13 22:43 | disposition home or self-care (01) ==
LOC: ED 20:44
DX: M70.61 Trochanteric bursitis, right hip (principal); M16.0 Bilateral primary osteoarthritis of hip; L03.311 Cellulitis of abdominal wall; S30.861A Insect bite (nonvenomous) of abdominal wall, initial encounter; W57.XXXA Bitten or stung by nonvenomous insect and other nonvenomous arthropods, initial encounter
CPT/HCPCS: 20610; 73502; 99283; 99284; A9270

== ENCOUNTER 2020-02-08 21:27 | Emergency (ER) | payer MEDICAID ==
[2020-02-08] MEDS ORDERED: KETOROLAC 60 MG/2 ML VIAL IM STA (22:47)
[2020-02-08] MEDS ORDERED: HYDROmorphone 1 MG/ML CARPUJECT IM STA (22:47)
[2020-02-08] MEDS ORDERED: predniSONE 20 MG TABLET PO STA (22:48)
[2020-02-08 23:04] LABS: BASOPHILS # (AUTO) 0.1 10^3/uL (0.0-0.1); BASOPHILS % (AUTO) 1.7 %; EOSINOPHILS # (AUTO) 0.1 10^3/uL (0.0-0.7); EOSINOPHILS % (AUTO) 3.2 %; HGB - HEMOGLOBIN 9.9 g/dL (12.0-16.0); LYMPHOCYTES # (AUTO) 1.4 10^3/uL (1.5-3.5); LYMPHOCYTES % (AUTO) 35.1 %; MEAN CORPUSCULAR HEMOGLOBIN 25.9 pg (27.0-31.0); MEAN CORPUSCULAR HGB CONC 29.4 g/dL (32.0-36.0); MEAN CORPUSCULAR VOLUME 88.2 fL (81.0-99.0); MEAN PLATELET VOLUME 8.9 fL (7.9-10.8); MONOCYTES # (AUTO) 0.4 10^3/uL (0.0-1.0); MONOCYTES % (AUTO) 10.6 %; NEUTROPHILS % (AUTO) 49.2 %; PLT - PLATELET COUNT 375 10^3/uL (130-450); RED BLOOD COUNT 3.82 10^6/uL (4.20-5.40); RED CELL DISTRIBUTION WIDTH 14.1 % (12.0-15.0); WHITE BLOOD COUNT 4.1 x10^3/uL (4.8-10.8)
[2020-02-08 23:14] LABS: ALBUMIN 3.2 g/dL (3.2-5.5); ALBUMIN/GLOBULIN RATIO 0.8 (1.0-2.2); BILIRUBIN,TOTAL 0.3 mg/dL (0.2-1.0); CALCIUM 8.5 mg/dL (8.5-10.3); CREATININE 0.6 mg/dL (0.4-1.0); TOTAL PROTEIN 7.1 g/dL (6.7-8.2)
--- NOTE | 2020-02-08 23:36 | ED Physician Documentation ---
History of Present Illness - Stated complaint Stated Complaint: RT SIDE PX, LEGS SWELLING - Chief complaint Chief Complaint: Trauma Ext - History obtained from History obtained from: Patient - Additonal information Additional information: Patient comes emergency department complaining that her right sided bursitis and sciatica are acting up. She states is been going on for about the last 2 weeks and that she is starting to have a sore right knee from gait compensation. She denies any fevers or chills. She has noticed a mild increase in the lower extremity edema that she normally has. She denies any shortness of breath, chest pain, or cough. The patient does not have any history of congestive heart failure, nor does she know of renal or hepatic failure. Review of Systems Ten Systems: 10 systems reviewed and negative Constitutional: reports: Reviewed and negative Eyes: reports: Reviewed and negative Ears: reports: Reviewed and negative Nose: reports: Reviewed and negative Throat: reports: Reviewed and negative Cardiac: reports: Reviewed and negative Respiratory: reports: Reviewed and negative GI: reports: Reviewed and negative : reports: Reviewed and negative Skin: reports: Reviewed and negative Musculoskeletal: reports: Joint pain (Right knee, right sciatic joint), Extremity swelling Neurologic: reports: Reviewed and negative Psychiatric: reports: Reviewed and negative Endocrine: reports: Reviewed and negative Immunocompromised: reports: Reviewed and negative PD PAST MEDICAL HISTORY - Past Medical History Past Medical History: Yes Cardiovascular: None Respiratory: Asthma, COPD Neuro: None Endocrine/Autoimmune: None GI: GERD 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 : None HEENT: None Psych: Depression, Anxiety Musculoskeletal: None, Fatigue, Chronic back pain Derm: None - Past Surgical History Past Surgical History: Yes General: 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, 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 - Present Medications Home Medications: Ambulatory Orders Medication Instructions Recorded Confirmed buPROPion [Wellbutrin Sr] 150 mg PO BID PRN 04/08/16 05/27/18 Albuterol 2.5 mg INH Q4H PRN 05/27/18 05/27/18 Albuterol Sulfate [Proair Hfa 02/08/20 Inhaler] traMADol [Ultram] 50 mg PO Q4-6H PRN #20 tablet 02/08/20 - Allergies Allergies/Adverse Reactions: Allergies Allergy/AdvReac Type Severity Reaction Status Date / Time acetaminophen [From Vicodin] Allergy Rash Verified 07/13/19 20:50 hydrocodone bitartrate * Allergy Rash Verified 07/13/19 20:50 [From Vicodin] - Social History Does the pt smoke?: No Smoking Status: Never smoker Does the pt drink ETOH?: No Does the pt have substance abuse?: No - Immunizations Immunizations are current?: Yes - POLST Patient has POLST: No PD ED PE NORMAL - Vitals Vital signs reviewed: Yes - General General: Alert and oriented X 3, No acute distress - HEENT HEENT: Atraumatic, PERRL, EOMI, Moist mucous membranes - Neck Neck: Supple, no meningeal sign - Cardiac Cardiac: RRR, No murmur - Respiratory Respiratory: No respiratory distress, Clear bilaterally - Abdomen Abdomen: Soft, Non tender, Non distended - Back Back: No CVA TTP, No spinal TTP - Derm Derm: Normal color, Warm and dry, No rash - Extremities Extremities: No deformity, Other (1+ pitting edema bilateral lower extremities from the mid anterior tibial area and into the feet. Tenderness over right sciatic joint and right trochanteric bursa.) - Neuro Neuro: Alert and oriented X 3 - Psych Psych: Normal mood, Normal affect Results - Vitals Vitals: Vital Signs - 24 hr 02/08/20 02/08/20 21:40 23:45 Temperature 36.6 C Heart Rate 95 80 Respiratory 18 18 Rate Blood Pressure 132/100 H 158/92 H O2 Saturation 95 99 Oxygen O2 Source Room air - Labs Labs: Laboratory Tests 02/08/20 02/08/20 02/08/20 22:55 22:55 22:55 WBC 4.1 L RBC 3.82 L Hgb 9.9 L Hct 33.7 L MCV 88.2 MCH 25.9 L MCHC 29.4 L RDW 14.1 Plt Count 375 MPV 8.9 Neut # (Auto) 2.0 Lymph # (Auto) 1.4 L Waldo # (Auto) 0.4 Eos # (Auto) 0.1 Baso # (Auto) 0.1 Absolute Nucleated RBC 0.00 Nucleated RBC % 0.0 Sodium 139 Potassium 3.9 Chloride 102 Carbon Dioxide 30 Anion Gap 7.0 BUN 20 Creatinine 0.6 Estimated GFR (MDRD) 103 Glucose 103 H Calcium 8.5 Total Bilirubin 0.3 AST 19 ALT 16 Alkaline Phosphatase 112 B-Natriuretic Peptide 68 Total Protein 7.1 Albumin 3.2 Globulin 3.9 Albumin/Globulin Ratio 0.8 L Lipase 17 L PD MEDICAL DECISION MAKING - ED course Complexity details: reviewed results, re-evaluated patient, considered differential, d/w patient ED course: Patient was treated symptomatically in the emergency department with Dilaudid, Toradol and prednisone. Laboratory studies were obtained in regards to the patient's lower extremity edema. These did show anemia, but a normal BNP, kidney function, and liver function test. I discussed with the patient that some of her edema may actually be secondary to her anemia. I discussed with the patient that she may start taking some [id number] iron, and that she will need to follow-up with her primary care physician. We have discussed the usual indications for return. Departure - Departure Disposition: 01 Home, Self Care Clinical Impression: Peripheral edema Sciatica Qualifiers: Laterality: right Qualified Code(s): M54.31 - Sciatica, right side Anemia Qualifiers: Anemia type: unspecified type Qualified Code(s): D64.9 - Anemia, unspecified Condition: Stable Instructions: ED Anemia Type Not Specified, ED Edema Legs Bilateral, ED Sciatica Prescriptions: traMADol [Ultram] 50 mg PO Q4-6H PRN #20 tablet PRN Reason: Pain Comments: Your kidney and liver function tests look good. The lab we checked to evaluate for heart failure was also normal. You were found to be moderately anemic, meaning your red blood cell volume is low. This could be at least partially responsible for the swelling in your legs and sometimes in your hands. You may start taking [id number] iron pills if you do not already, and you may follow-up with your doctor to further evaluate this. Discharge Date/Time: 02/08/20 23:45
[2020-02-08 23:46] VITALS: BP 158/92
== END 2020-02-08 23:45 | disposition home or self-care (01) ==
LOC: ED 21:27
DX: M54.31 Sciatica, right side (principal); D64.9 Anemia, unspecified; R60.9 Edema, unspecified
CPT/HCPCS: 36415; 80053; 83690; 83880; 85025; 96372; 99283; 99284; J1170; J7512

== ENCOUNTER 2020-04-20 21:19 | Outpatient (CLI) | payer MEDICAID | END 2020-04-20 21:20 | disposition critical access hospital (66) | LOC: EMS 21:19 | PROVIDERS: ATTEND Emergency Medicine | DX: T40.1X1A Poisoning by heroin, accidental (unintentional), initial encounter (principal); T43.621A Poisoning by amphetamines, accidental (unintentional), initial encounter | CPT/HCPCS: A0425; A0427; A0999 ==

== ENCOUNTER 2020-04-20 21:32 | Observation (INO) | payer MEDICAID ==
[2020-04-20] MEDS ORDERED: IPRATROPIUM/ALBUTEROL 3 ML NEB INH STA (21:57)
[2020-04-20 22:00] LABS: HGB - HEMOGLOBIN 10.5 g/dL (12.0-16.0); MEAN PLATELET VOLUME 8.8 fL (7.9-10.8)
[2020-04-20 22:02] LABS: BASOPHILS # (AUTO) 0.1 10^3/uL (0.0-0.1); BASOPHILS % (AUTO) 0.8 %; EOSINOPHILS # (AUTO) 0.3 10^3/uL (0.0-0.7); EOSINOPHILS % (AUTO) 2.7 %; HCT - HEMATOCRIT 37.1 % (37.0-47.0); LYMPHOCYTES # (AUTO) 1.4 10^3/uL (1.5-3.5); LYMPHOCYTES % (AUTO) 13.7 %; MEAN CORPUSCULAR HEMOGLOBIN 23.9 pg (27.0-31.0); MEAN CORPUSCULAR HGB CONC 28.3 g/dL (32.0-36.0); MEAN CORPUSCULAR VOLUME 84.5 fL (81.0-99.0); MONOCYTES # (AUTO) 0.6 10^3/uL (0.0-1.0); MONOCYTES % (AUTO) 5.7 %; NEUTROPHILS # (AUTO) 7.9 10^3/uL (1.5-6.6); NEUTROPHILS % (AUTO) 76.9 %; PLT - PLATELET COUNT 527 10^3/uL (130-450); RED BLOOD COUNT 4.39 10^6/uL (4.20-5.40); RED CELL DISTRIBUTION WIDTH 15.9 % (12.0-15.0); WHITE BLOOD COUNT 10.3 x10^3/uL (4.8-10.8)
[2020-04-20] MEDS ORDERED: ASPIRIN 325 MG TABLET PO STA (22:13)
[2020-04-20 22:15] LABS: ACETAMINOPHEN < 10 ug/mL (10-30); ALBUMIN 3.2 g/dL (3.2-5.5); ALBUMIN/GLOBULIN RATIO 0.7 (1.0-2.2); ALKALINE PHOSPHATASE 132 IU/L (42-121); ALT ALANINE AMINOTRANSFERASE 45 IU/L (10-60); AST ASPARTATE AMINOTRANSFERASE 123 IU/L (10-42); BILIRUBIN,TOTAL 0.3 mg/dL (0.2-1.0); BUN - BLOOD UREA NITROGEN 14 mg/dL (6-20); CALCIUM 9.1 mg/dL (8.5-10.3); CARBON DIOXIDE - CO2 31 mmol/L (21-32); CHLORIDE 99 mmol/L (101-111); CREATININE 0.6 mg/dL (0.4-1.0); ETOH - ETHANOL < 5.0 mg/dL; GFR - MDRD 103 (>89); GLUCOSE 99 mg/dL (70-100); LIPASE 123 U/L (22-51); SALICYLATE < 6.0 mg/dL; SODIUM 141 mmol/L (135-145); TOTAL PROTEIN 7.8 g/dL (6.7-8.2)
[2020-04-20 22:19] LABS: VBG BASE EXCESS 3.2 mmol/L (-2 - +2); VBG HCO3 27.9 mmol/L (23-28); VBG OXYGEN SATURATION 59.3 % (60-80); VBG PCO2 43.3 mmHg (41-51); VBG PH 7.427 (7.31-7.41); VBG PO2 28.7 mmHg (25-47); VBG TOTAL CO2 29.2 mmol/L (24-29)
[2020-04-20 22:26] LABS: PLATELET ESTIMATE, MANUAL INCREASED (>450,000) (NORMAL); PLATELET MORPHOLOGY NORMAL APPEARANCE (NORMAL)
[2020-04-20 22:27] LABS: WBC MORPHOLOGY (MULTIPLE) NORMAL APPEARANCE (NORMAL)
[2020-04-20 22:56] LABS: MUDS CUTOFF CONCENTRATIONS CUTOFF CONC BELOW:
[2020-04-20 22:58] LABS: BILIRUBIN,URINE NEGATIVE (NEGATIVE); GLUCOSE, URINE (UA) NEGATIVE (NEGATIVE); KETONES,URINE (UA) NEGATIVE (NEGATIVE); LEUKOCYTE ESTERASE, URINE NEGATIVE (NEGATIVE); NITRITE,URINE NEGATIVE (NEGATIVE); OCCULT BLOOD,URINE NEGATIVE (NEGATIVE); PH,URINE 7.5 PH (5.0-7.5); PROTEIN,URINE NEGATIVE (NEGATIVE); UROBILINOGEN,URINE 0.2 (NORMAL) E.U./dL (NORMAL)
[2020-04-20 23:02] LABS: CLARITY,URINE CLEAR (CLEAR)
[2020-04-20 23:11] LABS: AMPHETAMINE SCREEN,URINE POSITIVE (NEGATIVE); BARBITURATE SCREEN,UR NEGATIVE (NEGATIVE); BENZODIAZEPINES SCREEN, URINE NEGATIVE (NEGATIVE); COCAINE SCREEN URINE NEGATIVE (NEGATIVE); METHADONE SCREEN, URINE NEGATIVE (NEGATIVE); METHAMPHETAMINES SCREEN, URINE POSITIVE (NEGATIVE); OPIATE SCREEN, URINE POSITIVE (NEGATIVE); OXYCODONE SCREEN, URINE NEGATIVE (NEGATIVE); PROPOXYPHENE SCREEN, URINE NEGATIVE (NEGATIVE); THC CANNABINOID SCREEN, URINE NEGATIVE (NEGATIVE); TRICYCLIC ANTIDEPRESSANT,URINE NEGATIVE (NEGATIVE)
--- NOTE | 2020-04-21 00:27 | ED Physician Documentation ---
History of Present Illness - Stated complaint Stated Complaint: OD - Chief complaint Chief Complaint: Neuro - History obtained from History obtained from: Patient - Additonal information Additional information: 60-year-old woman with past medical history of polysubstance abuse And asthma presents with Episode of unresponsiveness this evening witnessed by family. They gave her Narcan and she came around and subsequently self administered an additional 2 doses of Narcan intranasally. Upon EMS arrival she was complaining of shortness of breath however vital signs were otherwise within normal limits and her fingerstick was normal. She reported that she had been using methamphetamine and heroin just prior to this episode. Upon arrival to the emergency room she complained of continuing shortness of breath that improved with a nebulizer treatment. Denies chest pain, back pain, cough, dizziness, nausea vomiting, fevers. no fnd. Review of Systems Ten Systems: 10 systems reviewed and negative Constitutional: denies: Fever, Chills Cardiac: denies: Chest pain / pressure Respiratory: reports: Dyspnea. denies: Cough PD PAST MEDICAL HISTORY - Past Medical History Cardiovascular: None Respiratory: Asthma, COPD Neuro: None Endocrine/Autoimmune: None GI: GERD MAKE UP EDITOR: None : None HEENT: None Psych: Depression, Anxiety Musculoskeletal: None, Fatigue, Chronic back pain Derm: None - Past Surgical History Past Surgical History: Yes General: Cholecystectomy /MAKE UP EDITOR: section, 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 - Present Medications Home Medications: Ambulatory Orders Medication Instructions Recorded Confirmed buPROPion [Wellbutrin Sr] 150 mg PO BID PRN 04/08/16 04/20/20 Albuterol 2.5 mg INH Q4H PRN 05/27/18 04/20/20 traMADol [Ultram] 50 mg PO Q4-6H PRN #20 tablet 02/08/20 04/20/20 - Allergies Allergies/Adverse Reactions: Allergies Allergy/AdvReac Type Severity Reaction Status Date / Time acetaminophen [From Vicodin] Allergy Rash Verified 04/20/20 21:45 hydrocodone bitartrate * Allergy Rash Verified 07/13/19 20:50 [From Vicodin] - Social History Does the pt smoke?: No Smoking Status: Never smoker Does the pt drink ETOH?: No Does the pt have substance abuse?: Yes Substance Use and Type: Meth, Heroin - Immunizations Immunizations are current?: Yes - POLST Patient has POLST: No PD ED PE NORMAL - Vitals Vital signs reviewed: Yes - General General: Alert and oriented X 3, No acute distress, Other (uncomfortable appearing, appears much older than stated age. ) - HEENT HEENT: Atraumatic, PERRL, EOMI - Neck Neck: Supple, no meningeal sign - Cardiac Cardiac: Other (tachycardic rate, regular rhythm) - Respiratory Respiratory: Other (BL diffuse wheezing. poor air entry. BL dependent crackles) - Abdomen Abdomen: Non tender, Non distended - Female Female : Deferred - Rectal Rectal: Deferred - Back Back: No spinal TTP - Derm Derm: Normal color - Extremities Extremities: No deformity - Neuro Neuro: Alert and oriented X 3 (tired appearing, uncomfortable appearing, yawning regularly) - Psych Psych: Other (tired appearing, yawning) Results - Vitals Vitals: Vital Signs - 24 hr 04/20/20 04/20/20 04/20/20 21:32 21:53 22:07 Temperature 36.3 C L 36.3 C L Heart Rate 109 H 109 H 88 Respiratory 23 23 29 H Rate Blood Pressure 200/114 H 200/114 H 191/111 H O2 Saturation 96 96 96 04/20/20 04/20/20 04/20/20 22:10 22:30 22:52 Temperature Heart Rate 80 112 H 90 Respiratory 27 H 30 H 23 Rate Blood Pressure 172/101 H 173/101 H O2 Saturation 94 94 04/20/20 04/21/20 04/21/20 23:30 00:00 00:31 Temperature 36.3 C L 36.3 C L 36.3 C L Heart Rate 95 90 91 Respiratory 20 20 21 Rate Blood Pressure 171/96 H 163/91 H 163/96 H O2 Saturation 94 94 95 04/21/20 01:06 Temperature Heart Rate 89 Respiratory 16 Rate Blood Pressure 160/89 H O2 Saturation 94 Oxygen O2 Source Room air - Labs Labs: Laboratory Tests 04/20/20 04/20/20 04/20/20 21:55 21:55 21:55 WBC 10.3 RBC 4.39 Hgb 10.5 L Hct 37.1 MCV 84.5 MCH 23.9 L MCHC 28.3 L RDW 15.9 H Plt Count 527 H MPV 8.8 Neut # (Auto) 7.9 H Lymph # (Auto) 1.4 L Frontier # (Auto) 0.6 Eos # (Auto) 0.3 Baso # (Auto) 0.1 Absolute Nucleated RBC 0.00 Nucleated RBC % 0.0 WBC Morphology NORMAL APPEARANCE Platelet Estimate INCREASED (>450,000) Platelet Morphology NORMAL APPEARANCE RBC Morph Micro Appear 1+ POLYCHROMASIA VBG pH VBG pCO2 VBG pO2 VBG HCO3 VBG Total CO2 VBG O2 Saturation VBG Base Excess Sodium 141 Potassium 4.0 Chloride 99 L Carbon Dioxide 31 Anion Gap 11.0 BUN 14 Creatinine 0.6 Estimated GFR (MDRD) 103 Glucose 99 Calcium 9.1 Total Bilirubin 0.3 AST 123 H ALT 45 Alkaline Phosphatase 132 H Troponin I High Sens 5.4 Total Protein 7.8 Albumin 3.2 Globulin 4.6 H Albumin/Globulin Ratio 0.7 L Lipase 123 H Urine Color Urine Clarity Urine pH Ur Specific [place] Urine Protein Urine Glucose (UA) Urine Ketones Urine Occult Blood Urine Nitrite Urine Bilirubin Urine Urobilinogen Ur Leukocyte Esterase Ur Microscopic Review Urine Culture Comments Salicylates < 6.0 Urine Opiates Screen Ur Oxycodone Screen Urine Methadone Screen Ur Propoxyphene Screen Acetaminophen < 10 L Ur Barbiturates Screen Ur Tricyclics Screen Ur Phencyclidine Scrn Ur Amphetamine Screen U Methamphetamines Scrn U Benzodiazepines Scrn Urine Cocaine Screen U Cannabinoids Screen Ethyl Alcohol < 5.0 04/20/20 04/20/20 04/21/20 22:13 22:50 00:32 WBC RBC Hgb Hct MCV MCH MCHC RDW Plt Count MPV Neut # (Auto) Lymph # (Auto) Frontier # (Auto) Eos # (Auto) Baso # (Auto) Absolute Nucleated RBC Nucleated RBC % WBC Morphology Platelet Estimate Platelet Morphology RBC Morph Micro Appear VBG pH 7.427 H VBG pCO2 43.3 VBG pO2 28.7 VBG HCO3 27.9 VBG Total CO2 29.2 H VBG O2 Saturation 59.3 L VBG Base Excess 3.2 H Sodium Potassium Chloride Carbon Dioxide Anion Gap BUN Creatinine Estimated GFR (MDRD) Glucose Calcium Total Bilirubin AST ALT Alkaline Phosphatase Troponin I High Sens 21.4 H* Total Protein Albumin Globulin Albumin/Globulin Ratio Lipase Urine Color YELLOW Urine Clarity CLEAR Urine pH 7.5 Ur Specific [place] 1.015 Urine Protein NEGATIVE Urine Glucose (UA) NEGATIVE Urine Ketones NEGATIVE Urine Occult Blood NEGATIVE Urine Nitrite NEGATIVE Urine Bilirubin NEGATIVE Urine Urobilinogen 0.2 (NORMAL) Ur Leukocyte Esterase NEGATIVE Ur Microscopic Review NOT INDICATED Urine Culture Comments NOT INDICATED Salicylates Urine Opiates Screen POSITIVE H Ur Oxycodone Screen NEGATIVE Urine Methadone Screen NEGATIVE Ur Propoxyphene Screen NEGATIVE Acetaminophen Ur Barbiturates Screen NEGATIVE Ur Tricyclics Screen NEGATIVE Ur Phencyclidine Scrn NEGATIVE Ur Amphetamine Screen POSITIVE H U Methamphetamines Scrn POSITIVE H U Benzodiazepines Scrn NEGATIVE Urine Cocaine Screen NEGATIVE U Cannabinoids Screen NEGATIVE Ethyl Alcohol PD MEDICAL DECISION MAKING - ED course ED course: 60-year-old woman presents status post overdose with shortness of breath improving with nebulizer treatment. She did have minimal ST depression in the precordial leads on initial EKG. Upon repeat this has resolved. I discussed with Dr. Roper for possible admission and the decision was made that we would continue to observe her in the emergency department, repeat her troponin and if continuing to be negative we will send her home after she is clinically sober. 1am- repeat trop 21.4. called hospitalist line and left a message. Departure - Departure Disposition: 66 [facility] DC/Xfer Clinical Impression: Elevated troponin, Methamphetamine abuse, Heroin abuse Condition: Stable
[2020-04-21] MEDS ORDERED: ATORVASTATIN 40 MG TABLET PO STA (01:13)
[2020-04-21] MEDS ORDERED: ACETAMINOPHEN 325 MG TABLET PO STA (01:13)
[2020-04-21] MEDS ORDERED: CLOPIDOGREL 300 MG TABLET PO STA (01:14)
[2020-04-21] MEDS ORDERED: ENOXAPARIN 60 MG/0.6 ML SYRINGE SUBQ STA (01:16)
[2020-04-21] MEDS ORDERED: SODIUM CHLORIDE FLUSH 0.9% 10 ML SYRINGE IVP PRN (02:06)
--- NOTE | 2020-04-21 02:19 | HISTORY & PHYSICAL EXAMINATION ---
Chief Complaint - Chief Complaint Chief Complaint: methamphetamine and heroin overdose, chest pain History of Present Illness - Admitted From Admitted From:: [facility] ED - History Obtained From Records Reviewed: yes History obtained from: patient - History of Present Illness HPI Comment/Other: Patient is a 60-year-old female with medical history significant for COPD, asthma, fibromyalgia, migraines, brain tumor, methamphetamine and heroin abu sewas who presented to the ED after and overdose on heroin and methamphetamine.. This happened at home around 7 PM. The patient was given a dose of Narcan in the field. She was experiencing some chest pain and dyspnea earlier which resolved by the time she arrived to the ED. She had an EKG done which showed minimal ST depression in the lateral leads. Her initial troponin was 5.4. Repeat troponin was 21.4. As a result she was presented for admission for further work-up. At bedside she denies chest pain, dyspnea, abdominal pain, nausea, vomiting, fever or chills. She explains that she has a brain tumor but has not followed up in 4 years because she does not have insurance. She reports having migraines for which she was on pain meds but with loss of insurance she turned to heroin use. She cannot remember where the imaging of her brain was done. History - Past Medical History Cardiovascular: reports: None Respiratory: reports: Asthma, COPD Neuro: reports: None Endocrine/Autoimmune: reports: None GI: reports: GERD EDITORIAL CLERK: reports: None : reports: None HEENT: reports: None Psych: reports: Depression, Anxiety Musculoskeletal: reports: None, Fibromyalgia, Chronic back pain Derm: reports: None MRSA Hx?: No - Past Surgical History General: reports: Cholecystectomy, Gastric surgery /EDITORIAL CLERK: reports: section, 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 - Family & Social History Family History Comment/Other: Patient's father had a CABG and colon cancer. Patient's mother had an CT, asthma and COPD. Both of his patient's sisters had pulmonary fibrosis and suffered from alcoholism. Social History Notes: She lives with her . She quit smoking 5 years ago. She used to smoke half a pack a day for 20 years. She denies alcohol use. She uses methamphetamine and heroin. - POLST Patient has POLST: No POLST Status: Full Code Meds/Allgy - Home Medications Home Medications: Ambulatory Orders Medication Instructions Recorded Confirmed buPROPion [Wellbutrin Sr] 150 mg PO BID PRN 02/20/17 03/04/21 Albuterol 2.5 mg INH Q4H PRN 05/27/18 04/20/20 traMADol [Ultram] 50 mg PO Q4-6H PRN #20 tablet 02/08/20 04/20/20 - Allergies Allergies/Adverse Reactions: Allergies Allergy/AdvReac Type Severity Reaction Status Date / Time acetaminophen [From Vicodin] Allergy Rash Verified 04/20/20 21:45 hydrocodone bitartrate * Allergy Rash Verified 07/13/19 20:50 [From Vicodin] Review of Systems - Constitutional Constitutional: denies: Fatigue, Fever, Chills - Eyes Eyes: denies: Pain, Dipolpia - Ears, Nose & Throat Ears, Nose & Throat: denies: Sore throat - Cardiovascular Cariovascular: reports: Chest pain. denies: Irregular heart rate, Palpitations, Edema - Respiratory Respiratory: reports: SOB at rest. denies: Cough, Sputum production, Wheezing - Gastrointestinal Gastrointestinal: denies: Abdominal pain, Abdominal distention, Constipation, Diarrhea, Nausea, Vomiting, Coffee grounds emesis, Reflux/heartburn - Genitourinary Genitourinary: denies: Dysuria, Frequency, Urgency, Hematuria - Musculoskeletal Musculoskeletal: denies: Muscle pain, Back pain, Limited range of motion, Joint pain - Integumentary Integumentary: denies: Rash, Pruritis, Dryness - Neurological Neurological: denies: General weakness, Focal weakness, Headache, Dizziness - Psychiatric Psychiatric: denies: Depression, Anxiety - Endocrine Endocrine: denies: Polyuria, Polydypsia - Hematologic/Lymphatic Hematologic/Lymphatic: denies: Anemia, Bruising, Petechiae Prior Level of Functionality: Patient is independent of activities of daily living Exam - Vital Signs Vital Signs: Vital Signs x48h Temp Pulse Resp BP Pulse Ox 04/21/20 02:08 91 23 157/91 H 95 04/21/20 01:32 96 19 141/93 H 97 04/21/20 01:06 89 16 160/89 H 94 04/21/20 00:31 36.3 C L 91 21 163/96 H 95 04/21/20 00:00 36.3 C L 90 20 163/91 H 94 04/20/20 23:30 36.3 C L 95 20 171/96 H 94 04/20/20 22:52 90 23 173/101 H 94 04/20/20 22:30 112 H 30 H 172/101 H 94 04/20/20 22:10 80 27 H 04/20/20 22:07 88 29 H 191/111 H 96 04/20/20 21:53 36.3 C L 109 H 23 200/114 H 96 04/20/20 21:32 36.3 C L 109 H 23 200/114 H 96 - Physical Exam General Appearance: positive: Alert, Mild distress Eyes Bilateral: positive: PERRL, EOMI ENT: positive: No signs of dehydration Neck: positive: No JVD, Trachea midline Respiratory: positive: Chest non-tender, No respiratory distress, Breath sounds nml. negative: Wheezes, Rales, Rhonchi Cardiovascular: positive: Regular rate & rhythm, No murmur Abdomen: positive: Non-tender, No organomegaly, Nml bowel sounds, No distention. negative: Guarding, Rebound Back: positive: Nml inspection Skin: positive: Color nml, No rash, Warm, Dry Extremities: positive: Non-tender, Full ROM, Nml appearance, No pedal edema Neurologic/Psychiatric: positive: Oriented x3, Mood/affect nml Conclusion/Plan - Problem List (1) Elevated troponin Conclusion/Plan: Likely due to methamphetamine abuse. Initial troponin was 5 with a repeat of 24. Will trend X1 more Patient was given a full dose aspirin and Plavix 300 mg x 1. Patient also received 1 mk/kg of Lovenox subcu and atorvastatin Will consider a stress echo in the morning (2) Heroin abuse Conclusion/Plan: Patient was given a dose of Narcan. Patient is breathing and oxygenating well on room air. Will monitor overnight. (3) Methamphetamine abuse Conclusion/Plan: Monitor. (4) COPD (chronic obstructive pulmonary disease) Conclusion/Plan: Not in exacerbation. If needed will order DuoNeb breathing treatment. - Lab Results Fish Bones: 04/20/20 21:55 04/20/20 21:55 Core Measures - Anticipated LOS I expect patient to be DC'd or transferred within 96 hours.: Yes - DVT/VTE - Prophylaxis VTE/DVT Device ordered at admit?: Yes VTE/DVT Prophylaxis med ordered at admit?: Yes
[2020-04-21 03:20] LABS: B. PARAPERTUSSIS- RESP PCR PAN NOT DETECTED; B. PERTUSSIS- RESP PCR PANEL NOT DETECTED; C. PNEUMONIAE- RESP PCR PANEL NOT DETECTED; CORONAVIRUS 229E-RESP PCR NOT DETECTED; CORONAVIRUS HKU1-RESP PCR NOT DETECTED; CORONAVIRUS NL63-RESP PCR NOT DETECTED; CORONAVIRUS OC43-RESP PCR NOT DETECTED; HUMAN METAPNEUMOVIRUS NOT DETECTED; INFLUENZA A- RESP PCR PANEL NOT DETECTED; INFLUENZA B - RESP PCR PANEL NOT DETECTED; M. PNEUMONIAE- RESP PCR PANEL NOT DETECTED; PARAINFLUENZA VIRUS 1 NOT DETECTED; PARAINFLUENZA VIRUS 2 NOT DETECTED; PARAINFLUENZA VIRUS 3 NOT DETECTED; PARAINFLUENZA VIRUS 4 NOT DETECTED; RHINOVIRUS/ENTEROVIRUS NOT DETECTED; RSV- RESP PCR PANEL NOT DETECTED; SARS-CoV-2 -RESP PCR PANEL NOT DETECTED
[2020-04-21] MEDS: SODIUM CHLORIDE 0.9% 1,000 ML IV SCH ×2 (03:43→03:45)
[2020-04-21 04:53] LABS: BASOPHILS # (AUTO) 0.1 10^3/uL (0.0-0.1); BASOPHILS % (AUTO) 0.8 %; EOSINOPHILS % (AUTO) 0.4 %; HCT - HEMATOCRIT 34.9 % (37.0-47.0); HGB - HEMOGLOBIN 10.1 g/dL (12.0-16.0); LYMPHOCYTES # (AUTO) 1.2 10^3/uL (1.5-3.5); LYMPHOCYTES % (AUTO) 15.5 %; MEAN CORPUSCULAR HGB CONC 28.9 g/dL (32.0-36.0); MEAN CORPUSCULAR VOLUME 83.1 fL (81.0-99.0); MEAN PLATELET VOLUME 9.1 fL (7.9-10.8); MONOCYTES # (AUTO) 0.4 10^3/uL (0.0-1.0); MONOCYTES % (AUTO) 5.3 %; NEUTROPHILS # (AUTO) 6.2 10^3/uL (1.5-6.6); NEUTROPHILS % (AUTO) 77.6 %; PLT - PLATELET COUNT 501 10^3/uL (130-450); RED CELL DISTRIBUTION WIDTH 15.9 % (12.0-15.0)
[2020-04-21 05:16] LABS: CALCIUM 8.9 mg/dL (8.5-10.3); CREATININE 0.7 mg/dL (0.4-1.0); POTASSIUM 3.4 mmol/L (3.5-5.0)
[2020-04-21] MEDS ORDERED: PANTOPRAZOLE 40 MG TABLET PO SCH (07:00)
[2020-04-21] MEDS ORDERED: POTASSIUM CHLORIDE 20 MEQ TABLET PO ONE (08:19)
[2020-04-21] MEDS ORDERED: buPROPion SR 150 MG TABLET PO PRN (08:41)
[2020-04-21] MEDS ORDERED: ALBUTEROL NEB 2.5 MG/3 ML INH PRN (08:41)
--- NOTE | 2020-04-21 08:46 | XRAY Report ---
PROCEDURE: Chest 1 View X-Ray INDICATIONS: sob, s/p overdose meth/heroin TECHNIQUE: One view of the chest was acquired. COMPARISON: None. FINDINGS: Surgical changes and devices: None. Lungs and pleura: No pleural effusions or pneumothorax. Lungs are clear. Mediastinum: Mediastinal contours appear normal. Heart size is normal. Bones and chest wall: No suspicious bony lesions. Overlying soft tissues appear unremarkable. IMPRESSION: No acute disease. Findings are concordant with the preliminary study interpretation provided at the t chidi of the study. Reviewed by: Geovanny Wick MD on 04/21/2020 8:45 AM [facility] Approved by: Geovanny Wick MD on 04/21/2020 8:45 AM [facility] Station ID: [id number]
[2020-04-21] MEDS ORDERED: SODIUM CHLORIDE FLUSH 0.9% 10 ML SYRINGE IVP SCH (09:00)
[2020-04-21 09:09] LABS: CHOL/HDL RATIO 3.1 (<4.4); CHOLESTEROL 138 mg/dL; HDL CHOLESTEROL 44 mg/dL; LDL CHOLESTEROL,CALCULATED 75 mg/dL; LDL/HDL RATIO 1.7 (<4.4); TRIGLYCERIDES 93 mg/dL; VLDL CHOLESTEROL 19 mg/dL
--- NOTE | 2020-04-21 11:30 | PHARMACY PROGRESS NOTE ---
- Best Possible Medication History Admit Date and Time: 04/21/20 0206 Processed by: Pharmacy Medication History completed: Yes Patient Interview: Completed Secondary Source(s): Physician records, Pharmacy records, Insurance records (PATIENT INTERVIEWED BY PHARMACY. PATIENT ABLE TO CONFIRM HOME MEDICATIONS ) As the person ultimately responsible for medication therapy, providers are able to order a medication from an existing home medication list in [facility] via the "Reconcile Routine" prior to Confirmation of that medication by business support assistant. Such practice is discouraged except when the physician, in their clinical judgment, deems that a medical need exists for a medication without regard to previous use.
[2020-04-21] MEDS ORDERED: MORPHINE 2 MG/ML CARPUJECT IVP STA (12:52)
[2020-04-21] MEDS ORDERED: REGADENOSON 0.4 MG/5 ML SYRINGE IVP ONE (13:00)
[2020-04-21] MEDS ORDERED: AMINOPHYLLINE 500 MG/20 ML VIAL ONE (13:01)
--- NOTE | 2020-04-21 13:38 | Discharge Plan ---
Discharge Plan Problem Reviewed?: Yes Disposition: Home, Self Care Condition: Stable Diet: Regular Activity Restrictions: Activity as Tolerated Shower Restrictions: No (fall precaution) Instruction Topics: ED Chest Pain Atypical Unkn Cause, Heart Attack First Aid, Heart Risk Health Concerns: chest pain, Plan of Treatment: you have no more chest pain, your ECHO study is unremarkable. You decline to have Stress test. You may followup with your PCP to have stress test at out-pt, and advise you quit your illicit drug usage. Care Goals: stabilization and improvement of your medical conditions. Assessment: discussed the care plan with you, you understood. Additional Instructions or Follow Up instructions: You may followup with your PCP in one week. Should your symptoms return or worsen, you may present ER or call 911 for help. No Smoking: If you smoke, Please STOP! Call for help.
--- NOTE | 2020-04-21 13:45 | DISCHARGE SUMMARY ---
Discharge Summary Admit Date: 04/20/20 Discharge Date: 04/21/20 Discharging Provider: Mil Sin Condition at Discharge: Stable Discharge Disposition: 01 Home, Self Care Discharge Facility Name: home - DIAGNOSES Discharge Diagnoses with Status of Each Condition: (1) Elevated troponin Slight elevated troponin but become flat. Patient denies any more chest pain. EKG with tele monitor and echo are unremarkable. Patient declined to have stress test in hospital. Patient may have stress test as outpatient with his primary care's referral. (2) illicit drug abuse strongly advise quit (3) COPD (chronic obstructive pulmonary disease) stable without exacerbation. (4)Chronic back pain continue PCP management - HPI History of Present Illness: refer from Dr. Roper's HPI on 04/21/20 Patient is a 60-year-old female with medical history significant for COPD, asthma, fibromyalgia, migraines, brain tumor, methamphetamine and heroin abusewas who presented to the ED after and overdose on heroin and methamphetamine.. This happened at home around 7 PM. The patient was given a dose of Narcan in the field. She was experiencing some chest pain and dyspnea earlier which resolved by the time she arrived to the ED. She had an EKG done which showed minimal ST depression in the lateral leads. Her initial troponin was 5.4. Repeat troponin was 21.4. As a result she was presented for admission for further work-up. At bedside she denies chest pain, dyspnea, abdominal pain, nausea, vomiting, fever or chills. She explains that she has a brain tumor but has not followed up in 4 years because she does not have insurance. She reports having migraines for which she was on pain meds but with loss of insurance she turned to heroin use. She cannot remember where the imaging of her brain was done. - HOSPITAL COURSE Hospital Course: Patient was admitted in the ER for overdose on heroin and methamphetamine. pt was given Narcan in ER. She was experiencing mild chest pain which was resolved by the time when she arrived to the ER. Patient had a very mild elevated troponin, and became flat. She denies any more chest pain in the hospital stay. Echo study show unremarkable. Patient was scheduled to have stress test but she declined. Advised patient may have stress test as outpatient. - ALLERGIES Allergies/Adverse Reactions: Allergies Allergy/AdvReac Type Severity Reaction Status Date / Time acetaminophen [From Vicodin] Allergy Rash Verified 04/20/20 21:45 hydrocodone bitartrate * Allergy Rash Verified 07/13/19 20:50 [From Vicodin] - MEDICATIONS Home Medications: Ambulatory Orders Medication Instructions Recorded Confirmed Albuterol Sulfate [Proair Hfa 1 - 2 puffs PO Q4HR PRN 04/21/20 04/21/20 Inhaler] Buprenorphine HCl/Naloxone HCl 0.5 tab SL Q8H 04/21/20 04/21/20 [Suboxone 8-2 mg Sl tab] Naloxone HCl [Narcan] 1 spray RAKAN PRN PRN 04/21/20 04/21/20 - PHYSICAL EXAM AT DISCHARGE General Appearance: positive: No acute distress, Alert. negative: Lethargic Eyes Bilateral: positive: Normal inspection, PERRL, No lid inflammation ENT: positive: ENT inspection nml, No signs of dehydration. negative: Purulent nasal drainage Neck: positive: Nml inspection, Trachea midline. negative: Thyromegaly, Stiff neck, Tracheal deviation Respiratory: positive: Chest non-tender, No respiratory distress. negative: Wheezes, Rales Cardiovascular: positive: Regular rate & rhythm, No murmur. negative: Tachycardia, Bradycardia, Systolic murmur, Diastolic murmur Peripheral Pulses: positive: 2+ Abdomen: positive: Non-tender, Nml bowel sounds, No distention. negative: Tenderness, Guarding, Rebound Back: positive: Nml inspection Skin: positive: Color nml, Warm, Dry. negative: Cyanosis, Diaphoresis, Pallor Extremities: positive: Non-tender, Nml appearance. negative: Calf tenderness Neurologic/Psychiatric: positive: Oriented x3, Motor nml, Sensation nml. negati ve: Weakness, Sensory loss, Facial droop, Slurred/abnml speech - LABS Result Diagrams: 04/21/20 04:20 04/21/20 04:20 - FOLLOW UP Follow Up: you have no more chest pain, your ECHO study is unremarkable. You decline to have Stress test. You may followup with your PCP to have stress test at out-pt, and advise you quit your illicit drug usage. You may followup with your PCP in one week. Should your symptoms return or worsen, you may present ER or call 911 for help. - TIME SPENT Time Spent in Discharge (Minutes): 30
[2020-04-21 15:48] VITALS: BP 165/89
== END 2020-04-21 17:19 | disposition home or self-care (01) ==
LOC: EDUNIT# → ED 21:32 → MS2 04-21 02:06
PROVIDERS: ADMIT Internal Medicine; ATTEND Nurse Practitioner Gerontology
DX: T40.1X4A Poisoning by heroin, undetermined, initial encounter (principal); T43.624A Poisoning by amphetamines, undetermined, initial encounter; R40.4 Transient alteration of awareness; Y92.009 Unspecified place in unspecified non-institutional (private) residence as the place of occurrence of the external cause; F11.10 Opioid abuse, uncomplicated; F15.10 Other stimulant abuse, uncomplicated; R77.8 Other specified abnormalities of plasma proteins; D49.6 Neoplasm of unspecified behavior of brain; F32.9 Major depressive disorder, single episode, unspecified; F41.9 Anxiety disorder, unspecified; J44.9 Chronic obstructive pulmonary disease, unspecified; G43.909 Migraine, unspecified, not intractable, without status migrainosus; G89.29 Other chronic pain; M54.9 Dorsalgia, unspecified; M79.7 Fibromyalgia; Z79.51 Long term (current) use of inhaled steroids; Z79.899 Other long term (current) drug therapy; Z87.891 Personal history of nicotine dependence; Z82.49 Family history of ischemic heart disease and other diseases of the circulatory system
CPT/HCPCS: 0202U; 36415; 71045; 80048; 80053; 80061; 80306; 80307; 80320; 80329; 81003; 82803; 83690; 84484; 85025; 93005; 93306; 94640; 96372; 96374; 99285; A9270; G0378; J1650; 81001; 83721; 87086

== ENCOUNTER 2020-10-11 22:40 | Emergency (ER) | payer MEDICAID ==
[2020-10-11] MEDS ORDERED: IPRATROPIUM/ALBUTEROL 3 ML NEB INH STA (22:53)
[2020-10-11 23:03] VITALS: BP 177/95
[2020-10-11] MEDS ORDERED: ALBUTEROL NEB 2.5 MG/3 ML INH STA (23:10)
--- NOTE | 2020-10-11 23:27 | ED Physician Documentation ---
PD HPI DYSPNEA - Stated complaint Stated Complaint: SOA - Chief complaint Chief Complaint: Resp - History obtained from History obtained from: Patient - History of Present Illness Timing - onset: How many days ago (2) Timing - onset during: Rest Timing - duration: Days (2) Timing - details: Gradual onset, Still present Inciting event(s): Out of meds. No: URI Improved by: Inhaler/neb Worsened by: Exertion Associated symptoms: Cough, Wheezing Similar symptoms before: Diagnosis (COPD) Recently seen: Not recently seen - Additional information Additional information: 60-year-old female with a history of COPD usually has a nebulizer machine and an inhaler and she has run out of her inhaler and her nebulizer machine is missing the medication bowl. She has developed increasing shortness of breath over the past 2 days and has not been able to sleep and she is come to the emergency department this evening jordy requesting a breathing treatment. She denies any fever new cough or development of new symptoms. She does not feel that she needs to be treated for an exacerbation of her COPD but feels that she does need bronchodilator. She has a new primary care doctor who she will see in 4 days time. Review of Systems Constitutional: denies: Fever Eyes: denies: Decreased vision Ears: denies: Ear pain Nose: denies: Congestion Throat: denies: Sore throat Cardiac: denies: Chest pain / pressure Respiratory: reports: Dyspnea, Cough, Wheezing GI: denies: Abdominal Pain, Nausea, Vomiting : denies: Dysuria, Frequency PD PAST MEDICAL HISTORY - Past Medical History Cardiovascular: None Respiratory: Asthma, COPD Neuro: None Endocrine/Autoimmune: None GI: GERD AN/SYQ 13 NAV/C2 OPERATOR: None : None HEENT: None Psych: Depression, Anxiety Musculoskeletal: None, Fibromyalgia, Chronic back pain Derm: None - Past Surgical History Past Surgical History: Yes General: Cholecystectomy, Gastric surgery /AN/SYQ 13 NAV/C2 OPERATOR: section, 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 - Present Medications Home Medications: Ambulatory Orders Medication Instructions Recorded Confirmed Albuterol Sulfate [Proair Hfa 1 - 2 puffs PO Q4HR PRN 04/21/20 04/21/20 Inhaler] Buprenorphine HCl/Naloxone HCl 0.5 tab SL Q8H 04/21/20 04/21/20 [Suboxone 8-2 mg Sl tab] Naloxone HCl [Narcan] 1 spray RAKAN PRN PRN 04/21/20 04/21/20 Albuterol Sulf [Ventolin Hfa 1 - 2 puffs INH Q4HR PRN #1 inhaler 10/11/20 Inhaler] - Allergies Allergies/Adverse Reactions: Allergies Allergy/AdvReac Type Severity Reaction Status Date / Time acetaminophen [From Vicodin] Allergy Rash Verified 10/11/20 22:49 hydrocodone bitartrate * Allergy Rash Verified 10/11/20 22:49 [From Vicodin] - Social History Does the pt smoke?: No Smoking Status: Former smoker Does the pt drink ETOH?: No Does the pt have substance abuse?: Yes - Immunizations Immunizations are current?: Yes - POLST Patient has POLST: No POLST Status: Full Code PD ED PE NORMAL - Vitals Vital signs reviewed: Yes (tachy and hypertensive ) - General General: Alert and oriented X 3, Well developed/nourished, Other (labor to breath is evident) - HEENT HEENT: Atraumatic, PERRL, EOMI - Neck Neck: Supple, no meningeal sign, No bony TTP - Cardiac Cardiac: RRR, No murmur - Respiratory Respiratory: Other (diminished breath sounds bilat with tight wheeze throughout. ) - Abdomen Abdomen: Soft, Non tender - Back Back: No CVA TTP, No spinal TTP - Derm Derm: Normal color, Warm and dry, No rash - Extremities Extremities: No deformity, No edema - Neuro Neuro: Alert and oriented X 3, personnel monitor 2-12 intact, No motor deficit, No sensory deficit, Normal speech Eye Opening: Spontaneous Motor: Obeys Commands Verbal: Oriented GCS Score: 15 - Psych Psych: Normal mood, Normal affect Results - Vitals Vitals: Vital Signs - 24 hr 10/11/20 10/11/20 10/11/20 22:47 23:01 23:02 Temperature 36.4 C L Heart Rate 111 H 112 H 102 H Respiratory 18 20 18 Rate Blood Pressure 215/112 H 177/95 H O2 Saturation 97 100 10/11/20 23:15 Temperature Heart Rate 96 Respiratory 18 Rate Blood Pressure O2 Saturation Oxygen O2 Source Room air PD MEDICAL DECISION MAKING - ED course Complexity details: considered differential, d/w patient ED course: 60-year-old female with history of COPD is insisting that she just needs to have her nebulizer working. She has run out of her inhaler. We were able to give her a DuoNeb treatment with improvement and we gave a second albuterol treatment with further improvement patient felt markedly improved and stated that she felt like she would be able to go home and sleep tonight she has plenty of medication for her nebulizer machine and she is requesting a refill on her inhaler. She is dispensed the nebulizer tubing set up. Departure - Departure Disposition: Home, Self Care Clinical Impression: COPD (chronic obstructive pulmonary disease) Qualifiers: COPD type: chronic bronchitis Chronic bronchitis type: simple Qualified Code(s): J41.0 - Simple chronic bronchitis Condition: Stable Instructions: COPD Dc Follow-Up: Kaitlynn Abrams MD [Primary Care Provider] - Prescriptions: Albuterol Sulf [Ventolin Hfa Inhaler] 1 - 2 puffs INH Q4HR PRN #1 inhaler PRN Reason: Shortness Of Air/Wheezing Comments: Today in the emergency department you have very tight wheezes. If you do not have continued improvement with the use of your inhaler and develop worsening of symptoms or develop a fever return to the emergency department for reevaluation.
== END 2020-10-11 23:33 | disposition home or self-care (01) ==
LOC: ED 22:40
DX: J41.0 Simple chronic bronchitis (principal); Z87.891 Personal history of nicotine dependence
CPT/HCPCS: 94640; 99284

== ENCOUNTER 2020-12-03 08:00 | Outpatient (CLI) | payer MEDICAID | END 2020-12-03 23:59 | disposition home or self-care (01) | LOC: LAB.N 08:00 | PROVIDERS: ATTEND Physician Assistant Medical | DX: R06.00 Dyspnea, unspecified (principal); Z20.822 Contact with and (suspected) exposure to COVID-19 ==

== ENCOUNTER 2020-12-19 13:25 | Outpatient (CLI) | payer MEDICAID ==
--- NOTE | 2020-12-21 02:21 | XRAY Report ---
PROCEDURE: Hip w/Pelvis 2-3V RT INDICATIONS: RIGHT HIP PAIN TECHNIQUE: AP pelvis with lateral view(s) of the right hip(s). Images become available for review o n 12/20/2020. COMPARISON: X-ray hip 07/13/2019 FINDINGS: Bones: No fractures or dislocations. Pelvic ring appears intact. No suspicious bony lesions. Ther e is severe right hip degenerative narrowing with subchondral sclerosis as well as areas of subchondr al lucency. There is a questionable very minimal appearance of cortical flattening of the femoral hea d. The left hip demonstrates moderate degenerative narrowing with periarticular osteophyte. Soft tissues: The visualized bowel gas pattern is normal. No suspicious soft tissue calcifications. IMPRESSION: Bilateral hip arthritis, right greater than left with suggestive very early changes of A VN noted on the right. Reviewed by: Bina Taylor MD on 12/21/2020 1:41 AM PDT Approved by: Bina Taylor MD on 12/21/2020 1:41 AM PDT Station ID: [id number]
== END 2020-12-19 13:26 | disposition home or self-care (01) ==
LOC: DI.N 13:25
PROVIDERS: ATTEND Physician Assistant
DX: M25.551 Pain in right hip (principal); M16.0 Bilateral primary osteoarthritis of hip

== ENCOUNTER 2021-02-03 07:39 | Emergency (ER) | payer MEDICAID ==
--- NOTE | 2021-02-03 07:57 | ED Physician Documentation ---
PD HPI DYSPNEA - Stated complaint Stated Complaint: SOA - Chief complaint Chief Complaint: Resp - History obtained from History obtained from: Patient - History of Present Illness Timing - onset: How many days ago (several days of increased dyspnea and wheezing.) Timing - onset during: Light activity Timing - duration: Days Timing - details: Gradual onset, Still present Inciting event(s): Out of meds (inhaler ran out, and was using nebulizer, but it is not working well.). No: URI Improved by: Rest. No: Sitting up Worsened by: Exertion, Coughing. No: Laying flat Associated symptoms: Cough, Wheezing, Bilateral edema (mild chronic during days, and resolved with elevation. Has history of mild HTN.). No: Fever, Chest pain / discomfort Similar symptoms before: Diagnosis (asthma exacerbations.) Recently seen: Not recently seen Review of Systems Constitutional: denies: Fever, Chills Nose: reports: Congestion. denies: Rhinorrhea / runny nose Throat: denies: Sore throat Cardiac: reports: Pedal edema (mild dependent during days). denies: Chest pain / pressure, Palpitations, Calf pain Respiratory: reports: Dyspnea, Cough, Wheezing GI: denies: Nausea, Vomiting, Diarrhea, Bloody / black stool Skin: denies: Rash, Lesions Neurologic: reports: Generalized weakness. denies: Focal weakness, Numbness, Near syncope PD PAST MEDICAL HISTORY - Past Medical History Past Medical History: Yes Cardiovascular: None, Hypertension Respiratory: Asthma, COPD Neuro: Migraines Endocrine/Autoimmune: None GI: GERD POLYSOMNOGRAPHER: None : None HEENT: None Psych: Depression, Anxiety Musculoskeletal: Fibromyalgia, Chronic back pain Derm: None Other Past Medical History: brain tumor - Past Surgical History Past Surgical History: Yes General: Cholecystectomy, Gastric surgery /POLYSOMNOGRAPHER: section, 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 - Present Medications Home Medications: Ambulatory Orders Medication Instructions Recorded Confirmed Albuterol Sulfate [Proair Hfa 1 - 2 puffs PO Q4HR PRN 04/21/20 02/03/21 Inhaler] Albuterol 2.5 mg INH Q4H PRN 02/03/21 02/03/21 Albuterol 2.5 mg INH Q4H PRN #30 neb 02/03/21 Albuterol Sulf [Ventolin Hfa 3 - 4 puffs INH Q4HR PRN #1 inhaler 02/03/21 Inhaler] Ferrous Gluconate 324 mg PO DAILY 30 Days #30 tablet 02/03/21 Nebulizer and Compressor 1 each MC QID PRN #1 each 02/03/21 [Compressor Nebulizer System] dexAMETHasone [Decadron] 4 mg PO DAILY #7 tablet 02/03/21 hydroCHLOROthiazide [Hydrodiuril] 25 mg PO DAILY 30 Days #30 tablet 02/03/21 - Allergies Allergies/Adverse Reactions: Allergies Allergy/AdvReac Type Severity Reaction Status Date / Time acetaminophen [From Vicodin] Allergy Rash Verified 02/03/21 07:46 hydrocodone bitartrate * Allergy Rash Verified 02/03/21 07:46 [From Vicodin] - Social History Does the pt smoke?: No Smoking Status: Former smoker Does the pt drink ETOH?: No Does the pt have substance abuse?: No - Immunizations Immunizations are current?: No Immunizations: Other immun not current - POLST Patient has POLST: No POLST Status: Full Code PD ED PE NORMAL - Vitals Vital signs reviewed: Yes - General General: Alert and oriented X 3, No acute distress, Well developed/nourished - Neck Neck: Supple, no meningeal sign, No adenopathy - Cardiac Cardiac: RRR, No murmur - Respiratory Respiratory: No: Clear bilaterally (exp wheezing without coarse sounds. ) - Abdomen Abdomen: Soft, Non tender - Derm Derm: Normal color, Warm and dry - Extremities Extremities: Normal ROM s pain, No calf tenderness / cord, Other (1+ edema in ankles and lower lower legs. ) - Neuro Neuro: Alert and oriented X 3, No motor deficit, Normal speech Results - Vitals Vitals: Vital Signs - 24 hr 02/03/21 02/03/21 02/03/21 07:46 08:04 08:21 Temperature 36.6 C Heart Rate 107 H 101 H 105 H Respiratory 24 24 16 Rate Blood Pressure 188/94 H 189/112 H O2 Saturation 96 96 02/03/21 02/03/21 09:00 10:11 Temperature Heart Rate 91 86 Respiratory 18 17 Rate Blood Pressure 178/105 H 149/99 H O2 Saturation 98 93 Oxygen O2 Source Room air - Labs Labs: Laboratory Tests 02/03/21 02/03/21 02/03/21 08:44 08:44 08:44 WBC 5.5 RBC 3.83 L Hgb 9.6 L Hct 33.1 L MCV 86.4 MCH 25.1 L MCHC 29.0 L RDW 15.4 H Plt Count 419 MPV 9.2 Neut # (Auto) 2.9 Lymph # (Auto) 1.6 [place] # (Auto) 0.5 Eos # (Auto) 0.3 Baso # (Auto) 0.1 Absolute Nucleated RBC 0.00 Nucleated RBC % 0.0 Sodium 140 Potassium 3.7 Chloride 101 Carbon Dioxide 29 Anion Gap 10.0 BUN 20 Creatinine 0.6 Estimated GFR (MDRD) 102 Glucose 104 H Calcium 8.7 Magnesium 2.0 Iron 23 L TIBC 497 H % Saturation 5 L Transferrin 355 Total Bilirubin 0.3 AST 21 ALT 18 Alkaline Phosphatase 92 Total Protein 7.0 Albumin 3.5 Globulin 3.5 Albumin/Globulin Ratio 1.0 Lipase 21 L Vitamin B12 Folate 02/03/21 08:44 WBC RBC Hgb Hct MCV MCH MCHC RDW Plt Count MPV Neut # (Auto) Lymph # (Auto) [place] # (Auto) Eos # (Auto) Baso # (Auto) Absolute Nucleated RBC Nucleated RBC % Sodium Potassium Chloride Carbon Dioxide Anion Gap BUN Creatinine Estimated GFR (MDRD) Glucose Calcium Magnesium Iron TIBC % Saturation Transferrin Total Bilirubin AST ALT Alkaline Phosphatase Total Protein Albumin Globulin Albumin/Globulin Ratio Lipase Vitamin B12 220 Folate 4.01 L - Rads (name of study) chest xray Radiology: Prelim report reviewed (no infiltrates, no CHF. ), See rad report PD MEDICAL DECISION MAKING - ED course Complexity details: reviewed old records (Hgb has been anemic chronically. ), reviewed results, considered differential (Some dependent leg edema but no orthopnea and no clinical suggestion of CHF. Mild hypertension. Can give HCTZ. Otherwise exacerbation of asthma and will prescribe albuterol, steroids, Tessalon. Chronic anemia, and can Rx Iron. Might need folate too. ), d/w patient Departure - Departure Disposition: 01 Home, Self Care Clinical Impression: Leg edema Exacerbation of asthma Qualifiers: Asthma severity: mild Asthma persistence: intermittent Qualified Code(s): J45.21 - Mild intermittent asthma with (acute) exacerbation Dyspnea Qualifiers: Dyspnea type: dyspnea on exertion Qualified Code(s): R06.00 - Dyspnea, unspecified Condition: Stable Record reviewed to determine appropriate education?: Yes Prescriptions: Albuterol Sulf [Ventolin Hfa Inhaler] 3 - 4 puffs INH Q4HR PRN #1 inhaler PRN Reason: Shortness Of Air/Wheezing Albuterol 2.5 mg INH Q4H PRN #30 neb PRN Reason: Wheezing Nebulizer and Compressor [Compressor Nebulizer System] 1 each MC QID PRN #1 each PRN Reason: Wheezing dexAMETHasone [Decadron] 4 mg PO DAILY #7 tablet Ferrous Gluconate 324 mg PO DAILY 30 Days #30 tablet hydroCHLOROthiazide [Hydrodiuril] 25 mg PO DAILY 30 Days #30 tablet Comments: Your albuterol nebulizer or inhaler 4 times a day regularly for the next several days to week and extra times as needed for wheezing. Dexamethasone steroid daily for a week. Continue your other usual medicines. Your chest x-ray does not show any signs of pneumonia, fluid around the lungs, CHF. I presume your trouble breathing will improve with the steroids and inhaler. You are anemic and looks like you have been that way on prior tests in the last year or 2. I would suggest adding an iron supplement daily. Follow-up with your primary care doctor next week, call for an appointment for recheck. I understand you are still trying to get assigned to a new one but call the office and see if they are able to get you in soon. Return if not improving well over the next few days or worsening. I sent your prescriptions to [facility] pharmacy. Discharge Date/Time: 02/03/21 10:13
[2021-02-03] MEDS ORDERED: CHERRY SYRUP 10 ML UDC PO ONE (08:09)
[2021-02-03] MEDS ORDERED: DEXAMETHASONE 10 MG/ML VIAL PO STA (08:09)
[2021-02-03] MEDS ORDERED: IPRATROPIUM/ALBUTEROL 3 ML NEB INH STA (08:09)
--- NOTE | 2021-02-03 08:48 | XRAY Report ---
PROCEDURE: Chest 1 View X-Ray INDICATIONS: chest pain TECHNIQUE: One view of the chest was acquired. COMPARISON: Nonet FINDINGS: Surgical changes and devices: None. Lungs and pleura: No pleural effusions or pneumothorax. Lungs are clear. Mediastinum: Mediastinal contours appear normal. Heart size is normal. Bones and chest wall: No suspicious bony lesions. Overlying soft tissues appear unremarkable. IMPRESSION: No acute cardiopulmonary abnormality. Reviewed by: Jason Maldonado on 02/03/2021 7:47 AM DEJAN Approved by: Jason Maldonado on 02/03/2021 7:47 AM [facility] Station ID: [id number]
[2021-02-03 08:51] LABS: BASOPHILS # (AUTO) 0.1 10^3/uL (0.0-0.1); BASOPHILS % (AUTO) 1.5 %; EOSINOPHILS # (AUTO) 0.3 10^3/uL (0.0-0.7); EOSINOPHILS % (AUTO) 6.2 %; HCT - HEMATOCRIT 33.1 % (37.0-47.0); HGB - HEMOGLOBIN 9.6 g/dL (12.0-16.0); LYMPHOCYTES # (AUTO) 1.6 10^3/uL (1.5-3.5); MEAN CORPUSCULAR HEMOGLOBIN 25.1 pg (27.0-31.0); MEAN CORPUSCULAR VOLUME 86.4 fL (81.0-99.0); MEAN PLATELET VOLUME 9.2 fL (7.9-10.8); MONOCYTES # (AUTO) 0.5 10^3/uL (0.0-1.0); MONOCYTES % (AUTO) 9.2 %; NEUTROPHILS # (AUTO) 2.9 10^3/uL (1.5-6.6); NEUTROPHILS % (AUTO) 52.9 %; PLT - PLATELET COUNT 419 10^3/uL (130-450); RED BLOOD COUNT 3.83 10^6/uL (4.20-5.40); RED CELL DISTRIBUTION WIDTH 15.4 % (12.0-15.0); WHITE BLOOD COUNT 5.5 x10^3/uL (4.8-10.8)
[2021-02-03 09:02] LABS: ALBUMIN 3.5 g/dL (3.2-5.5); BILIRUBIN,TOTAL 0.3 mg/dL (0.2-1.0); CALCIUM 8.7 mg/dL (8.5-10.3); CREATININE 0.6 mg/dL (0.4-1.0); POTASSIUM 3.7 mmol/L (3.5-5.0)
[2021-02-03 09:38] LABS: % IRON SATURATION 5 % (20-50); IRON 23 ug/dL (28-170); TOTAL IRON BINDING CAPACITY 497 ug/dL (250-450); TRANSFERRIN 355 mg/dL (192-382)
[2021-02-03 09:45] LABS: FOLATE 4.01 ng/mL (5.90 - >24.8)
[2021-02-03 10:13] VITALS: BP 149/99
== END 2021-02-03 10:13 | disposition home or self-care (01) ==
LOC: ED 07:39
DX: J45.21 Mild intermittent asthma with (acute) exacerbation (principal); R60.9 Edema, unspecified; I10 Essential (primary) hypertension; Z87.891 Personal history of nicotine dependence; D64.9 Anemia, unspecified
CPT/HCPCS: 36415; 71045; 80053; 82607; 82746; 83540; 83690; 83735; 84466; 85025; 94640; 94664; 99283; 99284; A9270

== ENCOUNTER 2021-02-07 10:07 | Outpatient (CLI) | payer MEDICAID ==
[2021-02-07] MEDS ORDERED: LIDOCAINE 1% 10 ML MDV ONE (10:17)
[2021-02-07] MEDS ORDERED: ROPIVACAINE 0.5% PF 20 ML AMPULE ONE (10:17)
[2021-02-07] MEDS ORDERED: IOTHALAMATE MEGLUMINE 50 ML VIAL ONE (10:18)
[2021-02-07] MEDS ORDERED: TRIAMCINOLONE 40 MG/ML VIAL ONE (10:18)
[2021-02-07] MEDS ORDERED: LIDOCAINE 1% 10 ML MDV SUBQ ONE (13:34)
[2021-02-07] MEDS ORDERED: IOTHALAMATE MEGLUMINE 50 ML VIAL IVP ONE (13:34)
[2021-02-07] MEDS ORDERED: TRIAMCINOLONE 40 MG/ML VIAL IM ONE (13:35)
[2021-02-07] MEDS ORDERED: ROPIVACAINE 0.5% PF 20 ML AMPULE SUBQ ONE (14:00)
--- NOTE | 2021-02-07 15:00 | XRAY Report ---
PROCEDURE: Inj/Aspiration Major Joint INDICATIONS: ARTHRITIS OF RT HIP CONTRAST: CONTRAST: CONRAY FLUORO TIME: FLUORO TIME: 0.8MIN and NUMBER IMAGES: 1 TECHNIQUE: The indications, alternatives, benefits, risks, and complications of the procedure were explained to the patient. Written informed consent was obtained and placed in the chart. The patient was placed in an appropriate position on the fluoroscopy table, and a site was chosen for percutaneous access un luis a fluoroscopic guidance. Local anesthetic was administered using a 1% lidocaine solution. A hypod ermic or spinal needle was then used to access the symptomatic joint. Intra-articular location of th e needle tip was confirmed by injecting a small amount of contrast, followed by steroid administratio n. The needle was then withdrawn, and a bandage applied to the puncture site. FINDINGS: Joint injected: Right hip Medications injected: 4 mL of 40 mg/mL Kenalog and 0.5% Ropivacaine mixture. Complications: None. IMPRESSION: Successful fluoroscopically guided administration of steroid and anaesthetic solution into the right hip joint. Reviewed by: Gladys Cox MD on 02/07/2021 2:59 PM PST Approved by: Gladys Cox MD on 02/07/2021 2:59 PM PST Station ID: [id number]
== END 2021-02-07 10:08 | disposition home or self-care (01) ==
LOC: DI 10:07
PROVIDERS: ATTEND Physician Assistant
DX: M16.11 Unilateral primary osteoarthritis, right hip (principal)
CPT/HCPCS: 20610; 77002; Q9961

== ENCOUNTER 2021-03-20 15:17 | Emergency (ER) | payer MEDICAID ==
[2021-03-20] MEDS ORDERED: ALBUTEROL 1 PUFF INH STA (16:38)
--- NOTE | 2021-03-20 16:40 | XRAY Report ---
PROCEDURE: Chest 1 View X-Ray INDICATIONS: chest pain TECHNIQUE: One view of the chest was acquired. COMPARISON: 02/03/2021 FINDINGS: Surgical changes and devices: None. Lungs and pleura: No pleural effusions or pneumothorax. Lungs are clear. Mediastinum: Mediastinal contours appear normal. Heart size is normal. Bones and chest wall: No suspicious bony lesions. Overlying soft tissues appear unremarkable. IMPRESSION: No acute cardiopulmonary process demonstrated radiographically. Reviewed by: Zhang Aragon MD on 03/20/2021 4:39 PM PST Approved by: Zhang Aragon MD on 03/20/2021 4:39 PM [facility] Station ID: [id number]
--- NOTE | 2021-03-20 16:41 | ED Physician Documentation ---
History of Present Illness - Stated complaint Stated Complaint: BACK PX,DIZZY,COUGH - Chief complaint Chief Complaint: General - Additonal information Additional information: 61-year-old female who has a history of tobaccoism as well as COPD 3 ports to the emergency department for cough, fevers, myalgias and chills. She is not yet vaccinated for COVID-19. Reports her nephew is Covid positive. She tells me that she was told by an ER provider that she was too high risk to get the Covid vaccine as it could make her COPD worse. She denies any chest pain or syncope. No unilateral leg swelling. She is out of her albuterol inhaler. Review of Systems Constitutional: reports: Fever, Chills, Myalgias. denies: Fatigue Eyes: reports: Reviewed and negative Ears: reports: Reviewed and negative Cardiac: denies: Chest pain / pressure, Palpitations Respiratory: reports: Dyspnea, Cough, Wheezing. 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: None : Kidney stones HEENT: None Psych: Depression, Anxiety Musculoskeletal: Fibromyalgia, Chronic back pain Derm: None - Past Surgical History Past Surgical History: Yes General: Cholecystectomy, Gastric surgery /PITTING MACHINE OPERATOR: section, 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 - Present Medications Home Medications: Ambulatory Orders Medication Instructions Recorded Confirmed Albuterol Sulfate [Proair Hfa 1 - 2 puffs PO Q4HR PRN 04/21/20 03/20/21 Inhaler] Albuterol 2.5 mg INH Q4H PRN #30 neb 02/03/21 03/20/21 Ferrous Gluconate 324 mg PO DAILY 30 Days #30 tablet 02/03/21 03/20/21 Nebulizer and Compressor 1 each MC QID PRN #1 each 02/03/21 [Compressor Nebulizer System] hydroCHLOROthiazide [Hydrodiuril] 25 mg PO DAILY 30 Days #30 tablet 02/03/21 Albuterol Sulf [Ventolin Hfa 1 - 2 puffs INH Q4HR PRN #1 inhaler 03/20/21 Inhaler] - Allergies Allergies/Adverse Reactions: Allergies Allergy/AdvReac Type Severity Reaction Status Date / Time acetaminophen [From Vicodin] Allergy Rash Verified 03/20/21 15:39 hydrocodone bitartrate * Allergy Rash Verified 03/20/21 15:39 [From Vicodin] - Social History Does the pt smoke?: No Smoking Status: Former smoker Does the pt drink ETOH?: No Does the pt have substance abuse?: No - Immunizations Immunizations are current?: No Immunizations: Other immun not current - POLST Patient has POLST: No POLST Status: Full Code PD ED PE NORMAL - General General: Alert and oriented X 3, No acute distress, Well developed/nourished - HEENT HEENT: Atraumatic, Ears normal, Moist mucous membranes - Neck Neck: Supple, no meningeal sign, No adenopathy - Cardiac Cardiac: RRR, No murmur, No gallop - Respiratory Respiratory: No respiratory distress. No: Clear bilaterally (Faint scattered expiratory wheeze. No tachypnea. Full pulmonary excursion. Room air saturations 97% ) - Abdomen Abdomen: Normal bowel sounds, Soft, Non tender - Back Back: No CVA TTP, No spinal TTP - Derm Derm: Normal color, No rash - Extremities Extremities: No deformity, No tenderness to palpate, Normal ROM s pain - Neuro Neuro: Alert and oriented X 3, food mixer assembler 2-12 intact Eye Opening: Spontaneous Motor: Obeys Commands Verbal: Oriented GCS Score: 15 - Psych Psych: Normal mood Results - Vitals Vitals: Vital Signs - 24 hr 03/20/21 03/20/21 03/20/21 15:39 16:49 17:06 Temperature 36.6 C Heart Rate 94 83 88 Respiratory 20 18 18 Rate Blood Pressure 146/101 H 154/95 H O2 Saturation 94 95 03/20/21 18:32 Temperature Heart Rate 88 Respiratory 20 Rate Blood Pressure 148/85 H O2 Saturation 98 Oxygen O2 Source Room air - Labs Labs: Laboratory Tests 03/20/21 03/20/21 03/20/21 16:41 16:41 16:45 WBC 5.7 RBC 4.23 Hgb 10.0 L Hct 34.6 L MCV 81.8 MCH 23.6 L MCHC 28.9 L RDW 16.5 H Plt Count 537 H MPV 8.9 Neut # (Auto) 3.9 Lymph # (Auto) 1.1 L [place] # (Auto) 0.5 Eos # (Auto) 0.1 Baso # (Auto) 0.1 Absolute Nucleated RBC 0.00 Nucleated RBC % 0.0 Sodium 141 Potassium 3.8 Chloride 103 Carbon Dioxide 29 Anion Gap 9.0 BUN 9 Creatinine 0.5 Estimated GFR (MDRD) 126 Glucose 98 Calcium 8.5 Total Bilirubin 0.8 AST 15 ALT 12 Alkaline Phosphatase 90 Total Protein 7.1 Albumin 3.1 L Globulin 4.0 Albumin/Globulin Ratio 0.8 L Lipase 20 L Nasal Adenovirus (PCR) NOT DETECTED Nasal B. parapertussis DNA (PCR) NOT DETECTED Nasal Coronavir 229E PCR NOT DETECTED Nasal Coronavir HKU1 PCR NOT DETECTED Nasal Coronavir NL63 PCR NOT DETECTED Nasal Coronavir OC43 PCR NOT DETECTED Nasal Enterovir/Rhinovir PCR NOT DETECTED Nasal Influenza B PCR NOT DETECTED Nasal Influenza A PCR NOT DETECTED Nasal Parainfluen 1 PCR NOT DETECTED Nasal Parainfluen 2 PCR NOT DETECTED Nasal Parainfluen 3 PCR NOT DETECTED Nasal Parainfluen 4 PCR NOT DETECTED Nasal RSV (PCR) NOT DETECTED Nasal B.pertussis DNA PCR NOT DETECTED Nasal C.pneumoniae (PCR) NOT DETECTED Brandon Human Metapneumo PCR NOT DETECTED Nasal M.pneumoniae (PCR) NOT DETECTED Nasal SARS-CoV-2 (PCR) NOT DETECTED - Rads (name of study) CXR Radiology: Final report received (No acute cardiopulmonary process) PD MEDICAL DECISION MAKING - ED course Complexity details: reviewed results, re-evaluated patient, considered differential, d/w patient ED course: 61-year-old female has a history of tobacco use as well as reported COPD pres ents emergency department with 5 to 7 days of fevers, cough congestion and myalgias. She has not yet vaccinated for COVID-19. Covid screen is pending on her. Chest x-ray was without acute findings. Screening labs did not show any worrisome findings. Specifically there was no leukopenia. Patient was given albuterol here in the emergency department which she feels improved her cough and symptoms thus a prescription will be loaded on discharge. Patient is a monoclonal antibody therapy candidate if she is COVID-19 positive and if positive then she will return to the ER tomorrow for treatment. 2106: Respiratory PCR panel has resulted and reassuringly it is negative. Findings were discussed with the patient on the phone. Departure - Departure Disposition: 01 Home, Self Care Clinical Impression: Cough, Encounter for screening for COVID-19 Condition: Stable Record reviewed to determine appropriate education?: Yes Prescriptions: Albuterol Sulf [Ventolin Hfa Inhaler] 1 - 2 puffs INH Q4HR PRN #1 inhaler PRN Reason: Shortness Of Air/Wheezing Comments: Vonda was seen today in the emergency department for cough, fevers, congestion. You are not yet vaccinated for COVID-19. A Covid test is pending on you. We will call you if the results are positive later this evening. If you are COVID-19 positive you are a candidate for monoclonal antibody therapy and you could return here early tomorrow morning to receive the infusion. You and anybody that lives with you should quarantine for Covid until your test results are known. Your chest x-ray did not show an obvious pneumonia. Your screening labs and electrolytes did not show any worrisome findings. You were given some albuterol here in the emergency department and I am sending a prescription for albuterol to the [facility] pharmacy in [place]. If at any point you find that your symptoms are worsening, you have difficulty breathing severe chest pain or your oxygen levels at home are less than 90% then please return immediately to the ER for second evaluation. Discharge Date/Time: 03/20/21 18:33
[2021-03-20 16:47] LABS: BASOPHILS # (AUTO) 0.1 10^3/uL (0.0-0.1); BASOPHILS % (AUTO) 0.9 %; EOSINOPHILS # (AUTO) 0.1 10^3/uL (0.0-0.7); EOSINOPHILS % (AUTO) 2.5 %; HCT - HEMATOCRIT 34.6 % (37.0-47.0); LYMPHOCYTES # (AUTO) 1.1 10^3/uL (1.5-3.5); LYMPHOCYTES % (AUTO) 19.6 %; MEAN CORPUSCULAR HEMOGLOBIN 23.6 pg (27.0-31.0); MEAN CORPUSCULAR HGB CONC 28.9 g/dL (32.0-36.0); MEAN CORPUSCULAR VOLUME 81.8 fL (81.0-99.0); MEAN PLATELET VOLUME 8.9 fL (7.9-10.8); MONOCYTES # (AUTO) 0.5 10^3/uL (0.0-1.0); MONOCYTES % (AUTO) 8.1 %; NEUTROPHILS # (AUTO) 3.9 10^3/uL (1.5-6.6); NEUTROPHILS % (AUTO) 68.4 %; PLT - PLATELET COUNT 537 10^3/uL (130-450); RED BLOOD COUNT 4.23 10^6/uL (4.20-5.40); RED CELL DISTRIBUTION WIDTH 16.5 % (12.0-15.0); WHITE BLOOD COUNT 5.7 x10^3/uL (4.8-10.8)
[2021-03-20 17:11] LABS: ALBUMIN 3.1 g/dL (3.2-5.5); ALBUMIN/GLOBULIN RATIO 0.8 (1.0-2.2); BILIRUBIN,TOTAL 0.8 mg/dL (0.2-1.0); CALCIUM 8.5 mg/dL (8.5-10.3); CREATININE 0.5 mg/dL (0.4-1.0); POTASSIUM 3.8 mmol/L (3.5-5.0); TOTAL PROTEIN 7.1 g/dL (6.7-8.2)
[2021-03-20 17:55] LABS: CORONAVIRUS 229E-RESP PCR NOT DETECTED; CORONAVIRUS HKU1-RESP PCR NOT DETECTED; CORONAVIRUS NL63-RESP PCR NOT DETECTED; CORONAVIRUS OC43-RESP PCR NOT DETECTED; HUMAN METAPNEUMOVIRUS NOT DETECTED; INFLUENZA A- RESP PCR PANEL NOT DETECTED; RHINOVIRUS/ENTEROVIRUS NOT DETECTED; SARS-CoV-2 -RESP PCR PANEL NOT DETECTED
[2021-03-20 17:56] LABS: B. PARAPERTUSSIS- RESP PCR PAN NOT DETECTED; B. PERTUSSIS- RESP PCR PANEL NOT DETECTED; C. PNEUMONIAE- RESP PCR PANEL NOT DETECTED; INFLUENZA B - RESP PCR PANEL NOT DETECTED; M. PNEUMONIAE- RESP PCR PANEL NOT DETECTED; PARAINFLUENZA VIRUS 1 NOT DETECTED; PARAINFLUENZA VIRUS 2 NOT DETECTED; PARAINFLUENZA VIRUS 3 NOT DETECTED; PARAINFLUENZA VIRUS 4 NOT DETECTED; RSV- RESP PCR PANEL NOT DETECTED
[2021-03-20 18:34] VITALS: BP 148/85
== END 2021-03-20 18:33 | disposition home or self-care (01) ==
LOC: ED 15:17
DX: Z20.822 Contact with and (suspected) exposure to COVID-19 (principal); R05.9 Cough, unspecified; I10 Essential (primary) hypertension; J44.9 Chronic obstructive pulmonary disease, unspecified; Z87.891 Personal history of nicotine dependence
CPT/HCPCS: 0202U; 36415; 71045; 80053; 83690; 85025; 94640; 99283; 99284

== ENCOUNTER 2021-07-20 06:00 | Outpatient (CLI) | payer MEDICAID ==
--- NOTE | 2021-07-20 13:40 | XRAY Report ---
PROCEDURE: Hip 3 View RT INDICATIONS: HIP PAIN TECHNIQUE: 3 views of the hip were acquired. COMPARISON: 12/19/2020. FINDINGS: Bones: No fractures or dislocations. No suspicious bony lesions. The visualized pelvic ring appear s intact. Severe right hip osteoarthritis with complete joint space narrowing, osseous hypertrophy an d subchondral sclerosis. Moderate left hip osteoarthritis with joint space narrowing and osseous hype rtrophy. Soft tissues: No suspicious soft tissue calcifications or masses. IMPRESSION: Severe right hip osteoarthritis. Reviewed by: Tiffanie Alcantara MD, PhD on 07/20/2021 1:39 PM PDT Approved by: Tiffanie Alcantara MD, PhD on 07/20/2021 1:39 PM PDT Station ID: [id number]
== END 2021-07-20 23:59 | disposition home or self-care (01) ==
LOC: DI.WOS 06:00
PROVIDERS: ATTEND Physician Assistant
DX: M16.11 Unilateral primary osteoarthritis, right hip (principal)

== ENCOUNTER 2021-10-19 19:09 | Emergency (ER) | payer MEDICAID ==
--- NOTE | 2021-10-19 19:43 | ED Physician Documentation ---
History of Present Illness - Stated complaint Stated Complaint: R LEG SWELLING - Chief complaint Chief Complaint: Ext Problem - History of Present Illness Timing: How many weeks ago (2) Pain level now: 7 Improved by: rest Worsened by: palpation, ambulation/weight-bearing - Additonal information Additional information: c/o 2 weeks of atraumatic RLE swelling, pain, erythema. Has completed a course of antibiotic (cephalexin rx 10/11/21 x 1 week), followed up with PMD today and advised to come to ED for ultrasound due to the symptoms not improving. Denies h/o DVT, denies chest pain. 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 TECHNICAL OFFICER: None : Kidney stones HEENT: None Psych: Depression, Anxiety Musculoskeletal: Fibromyalgia, Chronic back pain Derm: None - Past Surgical History Past Surgical History: Yes General: Cholecystectomy, Gastric surgery /BOTANICAL TECHNICAL OFFICER: section, 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 - Present Medications Home Medications: Ambulatory Orders Medication Instructions Recorded Confirmed Albuterol 2.5 mg INH Q4H PRN #30 neb 02/03/21 10/19/21 Albuterol Sulf [Ventolin Hfa 1 - 2 puffs INH Q4HR PRN #1 inhaler 03/20/21 10/19/21 Inhaler] Doxycycline Hyclate 100 mg PO BID #14 cap 10/19/21 - Allergies Allergies/Adverse Reactions: Allergies Allergy/AdvReac Type Severity Reaction Status Date / Time acetaminophen [From Vicodin] Allergy Rash Verified 10/19/21 19:22 hydrocodone bitartrate * Allergy Rash Verified 10/19/21 19:22 [From Vicodin] - Social History Does the pt smoke?: No Smoking Status: Never smoker Does the pt drink ETOH?: No Does the pt have substance abuse?: No - Immunizations Immunizations are current?: No Immunizations: Other immun not current - POLST Patient has POLST: No POLST Status: Full Code PD ED PE NORMAL - Vitals Vital signs reviewed: Yes - General General: Alert and oriented X 3, No acute distress, Well developed/nourished PD ED PE EXPANDED - Extremities JAZMIN LE visual: 1 - swelling (uniform/circumferential edema with moderate erythema and inreased tactile temp (to touch) compared to other leg) Results - Vitals Vitals: Oxygen O2 Source Room air - Rads (name of study) RLE US Radiology: Prelim report reviewed, See rad report PD MEDICAL DECISION MAKING - ED course Complexity details: reviewed results, re-evaluated patient, considered different ial, d/w patient ED course: RLE US negative for DVT. Will try a second course of antibiotic, different from first (will rx doxycycline). Departure - Departure Disposition: 01 Home, Self Care Clinical Impression: Cellulitis Qualifiers: Site of cellulitis: extremity Site of cellulitis of extremity: lower extremity Laterality: right Qualified Code(s): L03.115 - Cellulitis of right lower limb Condition: Good Instructions: ED Infec Skin Cellulitis Follow-Up: Brendan Ulrich DO [Primary Care Provider] - Prescriptions: Doxycycline Hyclate 100 mg PO BID #14 cap Comments: A prescription for the antibiotic (doxycycline) has been electronically submi tted to [facility] pharmacy in [place]. Discharge Date/Time: 10/19/21 21:58
--- NOTE | 2021-10-19 21:36 | Ultrasound Report ---
PROCEDURE: Duplex Ext Veins Right INDICATIONS: swelling TECHNIQUE: Real-time imaging, as well as color and pulse Doppler interrogation, were performed of the lower extr emity deep veins from the inguinal ligament to the popliteal fossa. COMPARISON: None. FINDINGS: The deep veins are normally compressible, and free of intraluminal thrombus. Color and pu lse Doppler demonstrate normal phasic intraluminal flow. There is normal augmentation response to di stal compression maneuver. IMPRESSION: No DVT in the right lower extremity. Reviewed by: Jason Maldonado on 10/19/2021 9:35 PM PDT Approved by: Jason Maldonado on 10/19/2021 9:35 PM PDT Station ID: [id number]
[2021-10-19 21:43] VITALS: BP 165/97
[2021-10-19] MEDS ORDERED: DOXYCYCLINE 100 MG TABLET PO STA (21:45)
[2021-10-19] MEDS ORDERED: DOXYCYCLINE 100 MG TABLET PO ONE (21:59)
== END 2021-10-19 21:58 | disposition home or self-care (01) ==
LOC: ED 19:09
DX: L03.115 Cellulitis of right lower limb (principal); I10 Essential (primary) hypertension
CPT/HCPCS: 93971; 99283; 99284; A9270

== ENCOUNTER 2021-11-07 08:00 | Outpatient (CLI) | payer MEDICAID ==
--- NOTE | 2021-11-08 10:54 | XRAY Report ---
PROCEDURE: Chest 2 View X-Ray INDICATIONS: ASTHMA TECHNIQUE: 2 view(s) of the chest. COMPARISON: None. FINDINGS: Surgical changes and devices: None. Lungs and pleura: Hyperinflated lungs with posterior pleural tethering versus trace effusion. Lungs are hyperlucent. No consolidations or opacities. Mediastinum: Mediastinal contours are normal. Heart size is normal. Bones and chest wall: No suspicious bony abnormalities. Soft tissues appear unremarkable. IMPRESSION: 1. Hyperinflated hyperlucent lungs suggesting COPD/emphysema or asthma. 2. No acute consolidations or pneumothorax. Reviewed by: Jessica Gan MD on 11/08/2021 10:53 AM PDT Approved by: Jessica Gan MD on 11/08/2021 10:53 AM PDT Station ID: [id number]
== END 2021-11-07 23:59 | disposition home or self-care (01) ==
LOC: DI.N 08:00
PROVIDERS: ATTEND Family Medicine
DX: J45.901 Unspecified asthma with (acute) exacerbation (principal)

== ENCOUNTER 2022-02-25 19:34 | Emergency (ER) | payer MEDICAID ==
--- NOTE | 2022-02-25 20:40 | ED Physician Documentation ---
History of Present Illness - Stated complaint Stated Complaint: SOA, SWOLLEN LEGS - Chief complaint Chief Complaint: Ext Problem - History obtained from History obtained from: Patient - History of Present Illness Timing: Today Pain level max: 0 Pain level now: 0 - Additonal information Additional information: Patient is a 62-year-old female who presents to the emergency department stating that she has had increased difficulty breathing over the past several weeks. She states that she has had gradually increasing swelling in her legs as well. No fevers. Mild, dry, chronic cough. No changes. Better with her nebulizer. Nothing makes it worse. No chest pain. Does not use oxygen at home. 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 : Kidney stones HEENT: None Psych: Depression, Anxiety Musculoskeletal: Fibromyalgia, Chronic back pain Derm: None - Past Surgical History Past Surgical History: Yes General: Cholecystectomy, Gastric surgery /NECK BAND SETTER: section, 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 - Present Medications Home Medications: Ambulatory Orders Medication Instructions Recorded Confirmed Albuterol 2.5 mg INH Q4H PRN #30 neb 02/03/21 10/19/21 Albuterol Sulf [Ventolin Hfa 1 - 2 puffs INH Q4HR PRN #1 inhaler 03/20/21 10/19/21 Inhaler] Doxycycline Hyclate 100 mg PO BID #14 cap 10/19/21 Furosemide [Lasix] 20 mg PO DAILY #7 tablet 02/25/22 - Allergies Allergies/Adverse Reactions: Allergies Allergy/AdvReac Type Severity Reaction Status Date / Time acetaminophen [From Vicodin] Allergy Rash Verified 02/25/22 19:42 hydrocodone bitartrate * Allergy Rash Verified 02/25/22 19:42 [From Vicodin] - Social History Does the pt smoke?: No Smoking Status: Never smoker Does the pt drink ETOH?: No Does the pt have substance abuse?: No - Immunizations Immunizations are current?: No Immunizations: Other immun not current - POLST Patient has POLST: No POLST Status: Full Code PD ED PE NORMAL - Vitals Vital signs reviewed: Yes - General General: Alert and oriented X 3, No acute distress - HEENT HEENT: PERRL, Moist mucous membranes - Neck Neck: Supple, no meningeal sign - Cardiac Cardiac: RRR, No murmur, Strong equal pulses - Respiratory Respiratory: No respiratory distress, Other (Mild diminished breath sounds bilaterally. Mild wheezing) - Abdomen Abdomen: Soft, Non tender, Non distended - Derm Derm: Warm and dry - Extremities Extremities: Other (1+ bilateral lower extremity pitting edema. No calf tenderness. No skin changes. Neurovascularly intact) - Neuro Neuro: Alert and oriented X 3 - Psych Psych: Normal mood, Normal affect Results - Vitals Vitals: Vital Signs - 24 hr 02/25/22 02/25/22 02/25/22 19:37 19:42 21:20 Temperature 37.1 C 37.1 C Heart Rate 111 H 111 H 84 Respiratory 18 18 20 Rate Blood Pressure 174/94 H 174/94 H O2 Saturation 94 94 02/25/22 21:42 Temperature Heart Rate 80 Respiratory 20 Rate Blood Pressure 150/90 H O2 Saturation 94 Oxygen O2 Source Room air - EKG (time done) 2032 Rate: Rate (enter#) (92) Rhythm: NSR [place]: Normal Intervals: Prolonged NE QRS: Normal Ischemia: Normal ST segments - Labs Labs: Laboratory Tests 02/25/22 02/25/22 02/25/22 21:17 21:17 21:17 WBC 4.4 L RBC 3.91 L Hgb 8.4 L Hct 32.6 L MCV 83.4 MCH 21.5 L MCHC 25.8 L RDW 17.8 H Plt Count 378 MPV 9.3 Neut # (Auto) 2.6 Lymph # (Auto) 1.3 L [place] # (Auto) 0.5 Eos # (Auto) 0.1 Baso # (Auto) 0.0 Absolute Nucleated RBC 0.00 Nucleated RBC % 0.0 Manual Slide Review Indicated Platelet Estimate NORMAL (130-450,000) Platelet Morphology NORMAL APPEARANCE RBC Morph Micro Appear 3+ HYPOCHROMASIA Sodium 136 Potassium 3.7 Chloride 98 L Carbon Dioxide 32 Anion Gap 6.0 BUN 15 Creatinine 0.6 Estimated GFR (MDRD) 102 Glucose 88 Calcium 8.5 Total Bilirubin 0.6 AST 17 ALT 10 Alkaline Phosphatase 99 Troponin I High Sens 6.3 B-Natriuretic Peptide Total Protein 6.7 Albumin 3.1 L Globulin 3.6 Albumin/Globulin Ratio 0.9 L Lipase 21 L 02/25/22 21:17 WBC RBC Hgb Hct MCV MCH MCHC RDW Plt Count MPV Neut # (Auto) Lymph # (Auto) [place] # (Auto) Eos # (Auto) Baso # (Auto) Absolute Nucleated RBC Nucleated RBC % Manual Slide Review Platelet Estimate Platelet Morphology RBC Morph Micro Appear Sodium Potassium Chloride Carbon Dioxide Anion Gap BUN Creatinine Estimated GFR (MDRD) Glucose Calcium Total Bilirubin AST ALT Alkaline Phosphatase Troponin I High Sens B-Natriuretic Peptide 89 Total Protein Albumin Globulin Albumin/Globulin Ratio Lipase - Rads (name of study) Bilateral lower extremity ultrasound Radiology: Final report received, See rad report Chest x-ray Radiology: Final report received, See rad report PD Medical Decision Making - ED course Complexity details: reviewed results, re-evaluated patient, considered differential, d/w patient ED course: 62-year-old female with bilateral lower extremity edema. No acute findings on ultrasound. No significant lab abnormalities. Chest x-ray does not show any acute disease. Feels better after nebulizer treatment. We will place her on Lasix for home. Patient is well-appearing, nontoxic. Afebrile. No hypoxia. No respiratory distress. Patient counseled regarding signs and symptoms for which I believe and urgent re-evaluation would be necessary. Patient with good understanding of and agreement to plan and is comfortable going home at this time This document was made in part using voice recognition software. While efforts are made to proofread this document, sound alike and grammatical errors may occur. Departure - Departure Disposition: Home, Self Care Clinical Impression: Peripheral edema COPD (chronic obstructive pulmonary disease) Qualifiers: COPD type: unspecified COPD Qualified Code(s): J44.9 - Chronic obstructive pulmonary disease, unspecified Anemia Qualifiers: Anemia type: unspecified type Qualified Code(s): D64.9 - Anemia, unspecified Condition: Good Instructions: ED COPD Flare, ED Edema Legs Bilateral Follow-Up: your,doctor in 1 week [Other] Prescriptions: Furosemide [Lasix] 20 mg PO DAILY #7 tablet Comments: Your ultrasound does not show any acute abnormalities today. You are mildly anemic, you should follow-up with your doctor regarding your anemia. Please return if you worsen. We sent a prescription for Lasix to the pharmacy for you to help with your swelling. Your prescription was sent to [facility] pharmacy in [place]. Discharge Date/Time: 02/25/22 22:58
[2022-02-25] MEDS ORDERED: IPRATROPIUM/ALBUTEROL 3 ML NEB INH STA (21:01)
--- NOTE | 2022-02-25 21:18 | XRAY Report ---
PROCEDURE: Chest 1 View X-Ray INDICATIONS: Chest pain TECHNIQUE: One view of the chest was acquired. COMPARISON: 11/07/2021. FINDINGS: Surgical changes and devices: None. Lungs and pleura: The medial left lung apex is partially secured by patient's neck soft tissues. No pleural effusions or pneumothorax. There is hyperinflation of the lungs with flattening of the hemid iaphragms compatible with COPD. No acute consolidation. Mediastinum: Mediastinal contours appear normal. Heart size is normal. Bones and chest wall: No suspicious bony lesions. Overlying soft tissues appear unremarkable. IMPRESSION: 1. No definite acute cardiopulmonary disease. 2. Findings compatible with COPD redemonstrated. Reviewed by: Kaleb Alberto MD on 02/25/2022 9:17 PM PST Approved by: Kaleb Alberto MD on 02/25/2022 9:17 PM [facility] Station ID: [id number]
[2022-02-25 21:24] LABS: BASOPHILS % (AUTO) 0.9 %; EOSINOPHILS # (AUTO) 0.1 10^3/uL (0.0-0.7); EOSINOPHILS % (AUTO) 1.8 %; HCT - HEMATOCRIT 32.6 % (37.0-47.0); HGB - HEMOGLOBIN 8.4 g/dL (12.0-16.0); LYMPHOCYTES # (AUTO) 1.3 10^3/uL (1.5-3.5); LYMPHOCYTES % (AUTO) 28.6 %; MEAN CORPUSCULAR HEMOGLOBIN 21.5 pg (27.0-31.0); MEAN CORPUSCULAR HGB CONC 25.8 g/dL (32.0-36.0); MEAN CORPUSCULAR VOLUME 83.4 fL (81.0-99.0); MEAN PLATELET VOLUME 9.3 fL (7.9-10.8); MONOCYTES # (AUTO) 0.5 10^3/uL (0.0-1.0); MONOCYTES % (AUTO) 10.1 %; NEUTROPHILS # (AUTO) 2.6 10^3/uL (1.5-6.6); NEUTROPHILS % (AUTO) 58.4 %; PLT - PLATELET COUNT 378 10^3/uL (130-450); RED BLOOD COUNT 3.91 10^6/uL (4.20-5.40); RED CELL DISTRIBUTION WIDTH 17.8 % (12.0-15.0); WHITE BLOOD COUNT 4.4 x10^3/uL (4.8-10.8)
[2022-02-25 21:27] LABS: SLIDE REVIEW? Indicated
[2022-02-25 21:39] LABS: ALBUMIN 3.1 g/dL (3.2-5.5); ALBUMIN/GLOBULIN RATIO 0.9 (1.0-2.2); BILIRUBIN,TOTAL 0.6 mg/dL (0.2-1.0); CALCIUM 8.5 mg/dL (8.5-10.3); CREATININE 0.6 mg/dL (0.4-1.0); POTASSIUM 3.7 mmol/L (3.5-5.0); TOTAL PROTEIN 6.7 g/dL (6.7-8.2)
[2022-02-25 21:52] LABS: PLATELET MORPHOLOGY NORMAL APPEARANCE (NORMAL)
[2022-02-25 21:53] LABS: PLATELET ESTIMATE, MANUAL NORMAL (130-450,000) (NORMAL)
[2022-02-25 22:12] VITALS: BP 150/90
[2022-02-25] MEDS ORDERED: FUROSEMIDE 20 MG TABLET PO STA (22:19)
--- NOTE | 2022-02-25 22:41 | Ultrasound Report ---
PROCEDURE: Duplex Ext Veins Bilateral INDICATIONS: Govind Becerra TECHNIQUE: Real-time imaging, as well as color and pulse Doppler interrogation, were performed of the deep veins of both legs from the inguinal ligament to the popliteal fossa. COMPARISON: 10/19/2021. FINDINGS: The deep veins are normally compressible, and free of intraluminal thrombus. Color and pu lse Doppler demonstrate normal phasic intravascular flow. There is normal augmentation response to d istal compression maneuver. 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 IMPRESSION: 1. No definite evidence of venous thrombosis in the right or left lower extremity. Reviewed by: Kaleb Alberto MD on 02/25/2022 10:40 PM PST Approved by: Kaleb Alberto MD on 02/25/2022 10:40 PM PST Station ID: [id number]
== END 2022-02-25 22:58 | disposition home or self-care (01) ==
LOC: ED 19:34
DX: J44.9 Chronic obstructive pulmonary disease, unspecified (principal); D64.9 Anemia, unspecified; R60.9 Edema, unspecified
CPT/HCPCS: 36415; 71045; 80053; 83690; 83880; 84484; 85025; 93005; 93970; 94640; 99284; A9270

== ENCOUNTER 2023-03-14 14:22 | Inpatient (IN) | payer MEDICAID ==
--- NOTE | 2023-03-14 14:48 | ED Physician Documentation ---
PD HPI DYSPNEA - Stated complaint Stated Complaint: SOA/COUGH - Chief complaint Chief Complaint: Resp - History obtained from History obtained from: Patient - Additional information Additional information: 63-year-old woman with history of COPD has been sick for about 3 to 4 days with a cough productive of foul sputum and worsening shortness of breath as well as a subjective fever. She denies chest pain. PD PAST MEDICAL HISTORY - Past Medical History Cardiovascular: Hypertension Respiratory: Asthma, COPD Neuro: Headaches, Migraines Endocrine/Autoimmune: None GI: GERD, Ulcers TROUT FARMER: None : Kidney stones HEENT: None Psych: Depression, Anxiety Musculoskeletal: Fibromyalgia, Chronic back pain Derm: None - Past Surgical History Past Surgical History: Yes General: Cholecystectomy, Gastric surgery /TROUT FARMER: section, 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 - Present Medications Home Medications: Ambulatory Orders Medication Instructions Recorded Confirmed Albuterol 2.5 mg INH Q4H PRN #30 neb 02/03/21 10/19/21 Albuterol Sulf [Ventolin Hfa 1 - 2 puffs INH Q4HR PRN #1 inhaler 03/20/21 10/19/21 Inhaler] Doxycycline Hyclate 100 mg PO BID #14 cap 10/19/21 Furosemide [Lasix] 20 mg PO DAILY #7 tablet 02/25/22 - Allergies Allergies/Adverse Reactions: Allergies Allergy/AdvReac Type Severity Reaction Status Date / Time acetaminophen [From Vicodin] Allergy Rash Verified 02/25/22 19:42 hydrocodone bitartrate * Allergy Rash Verified 02/25/22 19:42 [From Vicodin] - Social History Does the pt smoke?: No Smoking Status: Never smoker Does the pt drink ETOH?: No Does the pt have substance abuse?: No - Immunizations Immunizations are current?: No Immunizations: Other immun not current - POLST Patient has POLST: No POLST Status: Full Code PD ED PE NORMAL - General General: Alert and oriented X 3, Other (She is hypoxic, tachycardic and tachypneic, but does not appear ill particularly.) - HEENT HEENT: PERRL, EOMI - Neck Neck: Supple, no meningeal sign, No bony TTP - Cardiac Cardiac: RRR, No murmur - Respiratory Respiratory: Other (Very diminished breath sounds throughout without focal findings) - Abdomen Abdomen: Soft, Non tender - Back Back: No CVA TTP, No spinal TTP - Derm Derm: Normal color, Warm and dry - Extremities Extremities: No edema, No calf tenderness / cord - Neuro Neuro: Alert and oriented X 3, Normal speech Results - Vitals Vitals: Vital Signs - 24 hr 03/14/23 03/14/23 03/14/23 14:27 15:02 15:29 Temperature 36.7 C Heart Rate 121 H 80 85 Respiratory 26 H 22 18 Rate Blood Pressure 124/93 H 140/77 H O2 Saturation 85 L 93 If not protocol 5 : Oxygen Flow, liters/minute 03/14/23 03/14/23 16:00 16:22 Temperature Heart Rate 92 Respiratory 18 Rate Blood Pressure 119/75 O2 Saturation 94 81 L If not protocol 5 : Oxygen Flow, liters/minute Oxygen O2 Source Room air Oxygen Flow Rate 2 - EKG (time done) 1502 EKG releavant findings:: EKG personally interpreted by author of this note. Relevant findings are: Rate: Rate (enter#) (104) Rhythm: Sinus tachycardia [place]: Normal Intervals: Normal NH, Prolonged QT (borderline 488 QTC) QRS: Normal Ischemia: Normal ST segments - Labs Labs: Laboratory Tests 03/14/23 03/14/23 03/14/23 14:56 14:56 14:56 WBC 6.1 RBC 4.57 Hgb 9.4 L Hct 35.6 L MCV 77.9 L MCH 20.6 L MCHC 26.4 L RDW 20.7 H Plt Count 269 MPV 9.0 Neut # (Auto) 4.6 Lymph # (Auto) 0.9 L Glynn # (Auto) 0.6 Eos # (Auto) 0.0 Baso # (Auto) 0.0 Absolute Nucleated RBC 0.00 Nucleated RBC % 0.0 Sodium 136 Potassium 3.7 Chloride 98 L Carbon Dioxide 31 Anion Gap 7.0 BUN 9 Creatinine 0.5 L Estimated GFR (MDRD) 125 Glucose 120 H Lactic Acid < 0.2 L Calcium 8.6 Total Bilirubin 0.4 AST 21 ALT 12 Alkaline Phosphatase 97 Total Protein 7.8 Albumin 3.6 Globulin 4.2 Albumin/Globulin Ratio 0.9 L Nasal Adenovirus (PCR) Nasal B. parapertussis DNA (PCR) Nasal Coronavir 229E PCR Nasal Coronavir HKU1 PCR Nasal Coronavir NL63 PCR Nasal Coronavir OC43 PCR Nasal Enterovir/Rhinovir PCR Nasal Influ A H1 2009 PCR Nasal Influenza B PCR Nasal Parainfluen 1 PCR Nasal Parainfluen 2 PCR Nasal Parainfluen 3 PCR Nasal Parainfluen 4 PCR Nasal RSV (PCR) Nasal B.pertussis DNA PCR Nasal C.pneumoniae (PCR) Brandon Human Metapneumo PCR Nasal M.pneumoniae (PCR) Nasal SARS-CoV-2 (PCR) 03/14/23 14:56 WBC RBC Hgb Hct MCV MCH MCHC RDW Plt Count MPV Neut # (Auto) Lymph # (Auto) Glynn # (Auto) Eos # (Auto) Baso # (Auto) Absolute Nucleated RBC Nucleated RBC % Sodium Potassium Chloride Carbon Dioxide Anion Gap BUN Creatinine Estimated GFR (MDRD) Glucose Lactic Acid Calcium Total Bilirubin AST ALT Alkaline Phosphatase Total Protein Albumin Globulin Albumin/Globulin Ratio Nasal Adenovirus (PCR) NOT DETECTED Nasal B. parapertussis DNA (PCR) NOT DETECTED Nasal Coronavir 229E PCR NOT DETECTED Nasal Coronavir HKU1 PCR NOT DETECTED Nasal Coronavir NL63 PCR NOT DETECTED Nasal Coronavir OC43 PCR NOT DETECTED Nasal Enterovir/Rhinovir PCR NOT DETECTED Nasal Influ A H1 2009 PCR DETECTED A Nasal Influenza B PCR NOT DETECTED Nasal Parainfluen 1 PCR NOT DETECTED Nasal Parainfluen 2 PCR NOT DETECTED Nasal Parainfluen 3 PCR NOT DETECTED Nasal Parainfluen 4 PCR NOT DETECTED Nasal RSV (PCR) NOT DETECTED Nasal B.pertussis DNA PCR NOT DETECTED Nasal C.pneumoniae (PCR) NOT DETECTED Brandon Human Metapneumo PCR NOT DETECTED Nasal M.pneumoniae (PCR) NOT DETECTED Nasal SARS-CoV-2 (PCR) NOT DETECTED - Rads (name of study) Single view chest x-ray is unremarkable. Relevant Findings:: Final report received, EMP independent interpretation of test PD Medical Decision Making - ED course ED course: 63-year-old woman with history of COPD presents with apparent exacerbation of same with hypoxemia. Given her abnormal vital sign she was seen immediately upon getting to the room and will start DuoNeb and steroids. 3:55pm: Somewhat better after the first DuoNeb and lungs more open now with loud or rhonchi. Will repeat albuterol. 4:22pm: Better air motion after albuterol but still becomes quite hypoxic when her oxygen is decreased and currently is being maintained on 5 L. Call the hospitalist for admission. She is flu positive and I also ordered oseltamivir. Case discussed by phone with Dr. Knight, her hospitalist at 4:46 PM who accepts her to inpatient status. We discussed potential antibiotics but given the normal white count, clear chest x-ray, and alternative/viral source of infection (influenza A) we agree these can be held at this time. Departure - Departure Disposition: 68 [facility] DC/Xfer Clinical Impression: COPD (chronic obstructive pulmonary disease), Respiratory failure, Influenza A Condition: Serious Forms: PCP List
[2023-03-14] MEDS: IPRATROPIUM/ALBUTEROL 3 ML NEB INH STA (14:59)
[2023-03-14 15:04] LABS: BASOPHILS % (AUTO) 0.7 %; EOSINOPHILS % (AUTO) 0.2 %; HCT - HEMATOCRIT 35.6 % (37.0-47.0); HGB - HEMOGLOBIN 9.4 g/dL (12.0-16.0); LYMPHOCYTES # (AUTO) 0.9 10^3/uL (1.5-3.5); LYMPHOCYTES % (AUTO) 14.7 %; MEAN CORPUSCULAR HEMOGLOBIN 20.6 pg (27.0-31.0); MEAN CORPUSCULAR HGB CONC 26.4 g/dL (32.0-36.0); MEAN CORPUSCULAR VOLUME 77.9 fL (81.0-99.0); MONOCYTES # (AUTO) 0.6 10^3/uL (0.0-1.0); MONOCYTES % (AUTO) 9.1 %; NEUTROPHILS # (AUTO) 4.6 10^3/uL (1.5-6.6); PLT - PLATELET COUNT 269 10^3/uL (130-450); RED BLOOD COUNT 4.57 10^6/uL (4.20-5.40); RED CELL DISTRIBUTION WIDTH 20.7 % (12.0-15.0); WHITE BLOOD COUNT 6.1 x10^3/uL (4.8-10.8)
[2023-03-14] MEDS: methylPREDNISolone SUCCINATE 125 MG/2 ML VIAL IVP STA (15:17)
[2023-03-14 15:18] LABS: ALBUMIN 3.6 g/dL (3.2-5.5); ALBUMIN/GLOBULIN RATIO 0.9 (1.0-2.2); BILIRUBIN,TOTAL 0.4 mg/dL (0.2-1.0); CALCIUM 8.6 mg/dL (8.5-10.3); CREATININE 0.5 mg/dL (0.6-1.3); POTASSIUM 3.7 mmol/L (3.5-4.5); TOTAL PROTEIN 7.8 g/dL (6.4-8.9)
--- NOTE | 2023-03-14 15:20 | XRAY Report ---
PROCEDURE: Chest 1V INDICATIONS: dyspnea TECHNIQUE: One view of the chest was acquired. COMPARISON: None. FINDINGS: Surgical changes and devices: None. Lungs and pleura: No pleural effusions or pneumothorax. Lungs are clear. Mediastinum: Mediastinal contours appear normal. Heart size is normal. Bones and chest wall: No suspicious bony lesions. Overlying soft tissues appear unremarkable. IMPRESSION: No acute cardiopulmonary process. Reviewed by: Manish Alegre MD on 03/14/2023 3:19 PM PST Approved by: Manish Alegre MD on 03/14/2023 3:19 PM PST Station ID: [id number]
[2023-03-14] MEDS ORDERED: ALBUTEROL NEB 2.5 MG/3 ML INH ONE (15:57)
[2023-03-14] MEDS: ALBUTEROL NEB 2.5 MG/3 ML INH STA (16:00)
[2023-03-14 16:10] LABS: CORONAVIRUS 229E-RESP PCR NOT DETECTED; CORONAVIRUS HKU1-RESP PCR NOT DETECTED; CORONAVIRUS NL63-RESP PCR NOT DETECTED; CORONAVIRUS OC43-RESP PCR NOT DETECTED; HUMAN METAPNEUMOVIRUS NOT DETECTED; INFLUENZA A H1 2009- RESP PCR DETECTED; RHINOVIRUS/ENTEROVIRUS NOT DETECTED; SARS-CoV-2 -RESP PCR PANEL NOT DETECTED
[2023-03-14 16:11] LABS: B. PARAPERTUSSIS- RESP PCR PAN NOT DETECTED; B. PERTUSSIS- RESP PCR PANEL NOT DETECTED; C. PNEUMONIAE- RESP PCR PANEL NOT DETECTED; INFLUENZA B - RESP PCR PANEL NOT DETECTED; M. PNEUMONIAE- RESP PCR PANEL NOT DETECTED; PARAINFLUENZA VIRUS 1 NOT DETECTED; PARAINFLUENZA VIRUS 2 NOT DETECTED; PARAINFLUENZA VIRUS 3 NOT DETECTED; PARAINFLUENZA VIRUS 4 NOT DETECTED; RSV- RESP PCR PANEL NOT DETECTED
[2023-03-14 16:26] LABS: BILIRUBIN,URINE NEGATIVE (NEGATIVE); GLUCOSE, URINE (UA) NEGATIVE (NEGATIVE); KETONES,URINE (UA) NEGATIVE (NEGATIVE); LEUKOCYTE ESTERASE, URINE NEGATIVE (NEGATIVE); NITRITE,URINE NEGATIVE (NEGATIVE); OCCULT BLOOD,URINE NEGATIVE (NEGATIVE); PROTEIN,URINE NEGATIVE (NEGATIVE); UROBILINOGEN,URINE 1 (NORMAL) E.U./dL (NORMAL)
[2023-03-14] MEDS: OSELTAMIVIR 75 MG CAPSULE PO STA (16:39)
[2023-03-14] MEDS: KETOROLAC 15 MG/ML VIAL IVP STA (16:41)
[2023-03-14 16:47] LABS: BACTERIA,URINE None Seen /HPF (None Seen); CLARITY,URINE CLEAR (CLEAR); RBC,URINE None Seen /HPF (0-5); SQUAMOUS EPITHELIAL CELL,UR FEW Squamous (<= Few); WBC,URINE 0-3 /HPF (0-5)
[2023-03-14] MEDS ORDERED: SODIUM CHLORIDE FLUSH 0.9% 10 ML SYRINGE IVP PRN (18:21)
[2023-03-14] MEDS ORDERED: ONDANSETRON 4 MG/2 ML VIAL IVP PRN (18:21)
--- NOTE | 2023-03-14 18:28 | HISTORY & PHYSICAL EXAMINATION ---
Chief Complaint - Chief Complaint Chief Complaint: SOA History of Present Illness - Admitted From Admitted From:: ED - History Obtained From Records Reviewed: Yes History obtained from: ED provider, chart review and the patient - History of Present Illness HPI Comment/Other: This is a 63 y/o female with medical history significant for COPD, asthma, fibromyalgia, migraines, brain tumor, methamphetamine and heroin abuse. There is a prior history of illicit drug overdose in 2020. The patient presented to the ER with complaints of 4 days of SOA, cough and generalized malaise. She reported her sputum was productive and foul-smelling. She is not on oxygen at home. She was found to have an O2 saturation of 85% on room air and was tachypneic with respiratory rate 26. Initial heart rate was 121. Patient received nebulized bronchodilators x 2 and continued to have wheezing and evidence of a COPD exacerbation. She was trialed on room air again and dropped her O2 saturation to 81%. Workup shows a normal WBC, Hemoglobin 9.4 with MCV 77, normal electrolytes, BUN/creat and lactic acid, her chest x-ray is without infiltrates, but respiratory PCR is (+) for Influenza A H1. The patient also received steroids and Tamiflu in the ER. The ED provider then spoke to me about this patient. She will be admitted to manage acute respiratory failure with hypoxia, and a COPD exacerbation probably caused by his viral influenza infection. History - Past Medical History Cardiovascular: reports: Hypertension Respiratory: reports: Asthma, COPD Neuro: reports: Headaches, Migraines Endocrine/Autoimmune: reports: None GI: reports: GERD, Ulcers BUTTONHOLE MAKER: reports: None : reports: Kidney stones HEENT: reports: None Psych: reports: Depression, Anxiety Musculoskeletal: reports: Fibromyalgia, Chronic back pain Derm: reports: None MRSA Hx?: No Other Past Medical History: Meth and heroin abuse - Past Surgical History General: reports: Cholecystectomy, Gastric surgery /BUTTONHOLE MAKER: reports: section, 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 - Family & Social History Family History Comment/Other: Patient's father had a CABG and colon cancer. Patient's mother had an DE, asthma and COPD. Both of his patient's sisters had pulmonary fibrosis and suffered from alcoholism. Living arrangement: At home Living Situation: With spouse/s.o. Social History Notes: She lives with her . She quit smoking 5 years ago. She used to smoke half a pack a day for 20 years. She denies alcohol use. She uses methamphetamine and heroin. - Substance History Abuse: Recurrent use of substance despite neg consequences: Other (Meth and heroin abuse) - POLST Patient has POLST: No POLST Status: Full Code Meds/Allgy - Home Medications Home Medications: Ambulatory Orders Medication Instructions Recorded Confirmed Albuterol 2.5 mg INH Q4H PRN #30 neb 02/03/21 03/15/23 Albuterol Sulf [Ventolin Hfa 1 - 2 puffs INH Q4HR PRN #1 inhaler 03/20/21 03/15/23 Inhaler] Furosemide [Lasix] 20 mg PO DAILY #7 tablet 02/25/22 03/15/23 - Allergies Allergies/Adverse Reactions: Allergies Allergy/AdvReac Type Severity Reaction Status Date / Time acetaminophen [From Vicodin] Allergy Rash Verified 03/14/23 18:07 hydrocodone bitartrate * Allergy Rash Verified 03/14/23 18:07 [From Vicodin] Review of Systems - Constitutional Constitutional: reports: Fever, Malaise - Respiratory Respiratory: reports: Cough, Sputum production, Wheezing, SOB at rest, SOB with exertion - Musculoskeletal Musculoskeletal: reports: Muscle pain - All Other Systems All Other Systems: reports: Reviewed and negative Exam - Vital Signs Reviewed Vital Signs: Yes Vital Signs: Vital Signs x48h Temp Pulse Resp BP Pulse Ox O2 Flow Rate 03/14/23 17:30 36.4 C L 84 129/67 94 5 03/14/23 17:00 85 16 135/72 H 95 5 03/14/23 16:22 81 L 03/14/23 16:00 92 18 119/75 94 5 03/14/23 15:29 85 18 140/77 H 93 5 03/14/23 15:02 80 22 03/14/23 14:27 36.7 C 121 H 26 H 124/93 H 85 L - Physical Exam General Appearance: positive: Mild distress (resp distress) Eyes Bilateral: positive: EOMI, No lid inflammation ENT: positive: Other (edentulous) Respiratory: positive: Wheezes Cardiovascular: positive: Regular rate & rhythm, Tachycardia Abdomen: positive: Non-tender Skin: positive: Warm, Dry Extremities: positive: No pedal edema Neurologic/Psychiatric: positive: Oriented x3, CN's nml (2-12), Motor nml Sepsis Event Note (H) - Evaluation Current Stage of Sepsis: Sepsis Possible source of Sepsis: positive: Pulmonary - Sepsis Criteria Sepsis Criteria: Recorded Heart Rate greater than 90 bpm, Recorded Respiratory Rate greater than 20, Respiratory: Increasing oxygen requirements Conclusion/Plan - Problem List (1) Sepsis Conclusion/Plan: Patient met criteria for sepsis: Increasing oxygen needs, heart rate greater than 90 and respiratory rate greater than 20. She did have a normal WBC and lactic acid however. Plan: Will treat the underlying problems (2) Acute respiratory failure with hypoxia Conclusion/Plan: Patient is a COPD-er but does not use oxygen at home Cause appears to be her COPD exacerbation and viral upper respiratory infection Plan: Give supplemental O2 with target O2 sat 88% and above Treat the underlying problems (3) COPD exacerbation Conclusion/Plan: Plan: Continue the patient on DuoNebs scheduled and as needed every 4 hours, inhaled Pulmicort, IV steroids, Mucinex and montelukast and supplemental O2. Since chest x-ray was clear and WBC normal, no empiric antibiotics were started in the ER but I will check a respiratory sputum sample and send for gram stain and culture and if she has a very abn gram stain or grows bacteria, then we will start antibiotics (4) Influenza A Conclusion/Plan: Plan: Order respiratory/droplet isolation Continue with Tamiflu for a 5-day course (5) Microcytic anemia Conclusion/Plan: Patient has quite a remarkable low MCV of 77 and anemia Plan: I will check her iron panel and stool guaiac Follow CBC daily, transfuse if hemoglobin under 7 - Lab Results Fish Bones: 03/17/23 05:20 03/17/23 05:20 - Diagnostic Imaging Results Diagnostic Imaging Results: positive: Final report reviewed - Other Other Results/Comments: Attestation: The patient is expected to be hospitalized for greater than 2 midnights and is expected to be discharged or transferred to another facility within 96 hours: Yes
[2023-03-14] MEDS ORDERED: IPRATROPIUM/ALBUTEROL 3 ML NEB INH PRN (18:38)
[2023-03-14] MEDS: BUDESONIDE 0.5 MG/2 ML NEB INH SCH (19:20)
[2023-03-14] MEDS: IPRATROPIUM/ALBUTEROL 3 ML NEB INH SCH (19:20)
[2023-03-14] MEDS: MONTELUKAST 10 MG TABLET PO SCH (21:28)
[2023-03-14] MEDS: OSELTAMIVIR 75 MG CAPSULE PO SCH (21:28)
[2023-03-14] MEDS: methylPREDNISolone SUCCINATE 40 MG/ML VIAL IVP SCH (21:28)
[2023-03-14] MEDS: guaiFENesin 600 MG TABLET PO SCH (21:28)
[2023-03-15] MEDS: SODIUM CHLORIDE FLUSH 0.9% 10 ML SYRINGE IVP SCH (02:40)
[2023-03-15 05:22] LABS: BASOPHILS % (AUTO) 0.2 %; HCT - HEMATOCRIT 35.3 % (37.0-47.0); HGB - HEMOGLOBIN 8.9 g/dL (12.0-16.0); LYMPHOCYTES # (AUTO) 0.5 10^3/uL (1.5-3.5); LYMPHOCYTES % (AUTO) 8.4 %; MEAN CORPUSCULAR HEMOGLOBIN 19.8 pg (27.0-31.0); MEAN CORPUSCULAR HGB CONC 25.2 g/dL (32.0-36.0); MEAN CORPUSCULAR VOLUME 78.4 fL (81.0-99.0); MEAN PLATELET VOLUME 9.6 fL (7.9-10.8); MONOCYTES # (AUTO) 0.1 10^3/uL (0.0-1.0); MONOCYTES % (AUTO) 1.8 %; NEUTROPHILS # (AUTO) 5.6 10^3/uL (1.5-6.6); NEUTROPHILS % (AUTO) 89.1 %; PLT - PLATELET COUNT 288 10^3/uL (130-450); RED CELL DISTRIBUTION WIDTH 20.5 % (12.0-15.0); WHITE BLOOD COUNT 6.3 x10^3/uL (4.8-10.8)
[2023-03-15 05:28] LABS: SLIDE REVIEW? Indicated
[2023-03-15 05:44] LABS: BUN - BLOOD UREA NITROGEN 12 mg/dL (6-20); CALCIUM 8.8 mg/dL (8.5-10.3); CARBON DIOXIDE - CO2 31 mmol/L (21-32); CHLORIDE 100 mmol/L (101-111); CREATININE 0.4 mg/dL (0.6-1.3); GFR - MDRD 162 (>89); GLUCOSE 133 mg/dL (74-104); IRON < 10 ug/dL (50-212); MAGNESIUM 1.8 mg/dL (1.7-2.3); SODIUM 136 mmol/L (135-145); TOTAL IRON BINDING CAPACITY 477 ug/dL (250-450); TRANSFERRIN 341 mg/dL (203-362)
[2023-03-15 06:31] LABS: PLATELET ESTIMATE, MANUAL NORMAL (130-450,000) (NORMAL); PLATELET MORPHOLOGY NORMAL APPEARANCE (NORMAL)
[2023-03-15] MEDS: ENOXAPARIN 40 MG/0.4 ML SYRINGE SUBQ SCH (09:29)
[2023-03-15] MEDS: IBUPROFEN 600 MG TABLET PO PRN (09:34)
--- NOTE | 2023-03-15 19:06 | PROVIDER PROGRESS NOTE ---
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 Since chest x-ray was clear and WBC normal, no empiric antibiotics were started in the ER but I will check a respiratory sputum sample and send for gram stain and culture and if she has a very abn gram stain or grows bacteria, then we will start antibiotics (3) Influenza A Conclusion/Plan: Plan: Continue with respiratory/droplet isolation Continue with Tamiflu for a 5-day course (4) Microcytic anemia Conclusion/Plan: Patient has quite a remarkable low MCV of 77 and anemia Plan: I will check her iron panel and stool guaiac Follow CBC daily, transfuse if hemoglobin under 7 (5) Sepsis Conclusion/Plan: RESOLVED Patient met criteria for sepsis: Increasing oxygen needs, heart rate greater than 90 and respiratory rate greater than 20. She did have a normal WBC and lactic acid however. Plan: Will cont to treat the underlying problems - Current Meds Current Meds: Current Medications Generic Name Dose Route Start Last Admin Trade Name Freq PRN Reason Stop Dose Admin Albuterol/Ipratropium 3 ml 03/14/23 19:00 03/15/23 17:27 Ipratropium/Albuterol 3 Ml Neb INH 3 ml RTQID TOMÁS Administration Budesonide 0.5 mg 03/14/23 19:00 03/15/23 17:27 Budesonide 0.5 Mg/2 Ml Neb INH 0.5 mg RTBID TOMÁS Administration Enoxaparin Sodium 40 mg 03/15/23 09:00 03/15/23 09:29 Enoxaparin 40 Mg/0.4 Ml Syringe SUBQ 40 mg DAILY TOMÁS Administration Guaifenesin 600 mg 03/14/23 21:00 03/15/23 09:28 Guaifenesin 600 Mg Tablet PO 600 mg BID TOMÁS Administration Ibuprofen 600 mg 03/14/23 18:38 03/15/23 17:15 Ibuprofen 600 Mg Tablet PO 600 mg Q6HR PRN Administration Mild Pain or Fever>38C(100.4F) Methylprednisolone 80 mg 03/14/23 22:00 03/15/23 14:40 Methylprednisolone Succinate 40 Mg/Ml Vial IVP 80 mg TID TOMÁS Administration Montelukast Sodium 10 mg 03/14/23 21:00 03/14/23 21:28 Montelukast 10 Mg Tablet PO 10 mg QPM TOMÁS Administration Oseltamivir Phosphate 75 mg 03/14/23 21:00 03/15/23 09:28 Oseltamivir 75 Mg Capsule PO 03/19/23 09:01 75 mg BID TOMÁS Administration Sodium Chloride 10 ml 03/15/23 01:00 03/15/23 17:15 Sodium Chloride Flush 0.9% 10 Ml Syringe IVP 10 ml 0100,0900,1700 TOMÁS Administration - Lab Result Fish Bone Diagrams: 03/17/23 05:20 03/17/23 05:20 - Additional Planning My Orders: My Active Orders 03/14/23 18:21 Activity Orders [RC] Q2HR IO [RC] IOSHIFT Incentive Spirometry - RT [RC] TID Initiate Bowel Care Protocol [RC] .protocol Initiate Line Care Protocol [RC] QSHIFT Initiate Personal Care Protoco [RC] .protocol Oxygen Therapy [RC] .PRN Vital Signs [RC] Q4HR Ondansetron Inj [Zofran Inj] 4 mg IVP Q6HR PRN Sodium Chloride Flush 0.9% [Normal Saline Flush 0.9%] 10 ml IVP PRN PRN Zolpidem [Ambien] 5 mg PO QPM PRN Code Status [OTHERS] Routine Condition of Patient [OTHERS] Routine DVT Prophylaxis [OTHERS] Routine 03/14/23 18:22 IV Insert [RC] .ONCE 03/14/23 18:32 Infection Precautions - Discon [RC] .ONCE 03/14/23 18:38 Ibuprofen [Motrin] 600 mg PO Q6HR PRN Ipratropium/Albuterol [Duoneb] 3 ml INH Q4HR PRN 03/14/23 19:00 Budesonide [Pulmicort] 0.5 mg INH RTBID Ipratropium/Albuterol [Duoneb] 3 ml INH RTQID 03/14/23 19:23 RT [Nebulizer/MDI Tx.] [RC] .QID 03/14/23 21:00 Montelukast [Singulair] 10 mg PO QPM Oseltamivir [Tamiflu] 75 mg PO BID guaiFENesin [Mucinex] 600 mg PO BID 03/14/23 22:00 methylPREDNISolone SUCCINATE [SOLU-Medrol (40MG VIAL)] 80 mg IVP TID 03/15/23 01:00 Sodium Chloride Flush 0.9% [Normal Saline Flush 0.9%] 10 ml IVP 0100,0900,1700 03/15/23 09:00 Enoxaparin [Lovenox] 40 mg SUBQ DAILY 03/16/23 05:00 CBC - COMP BLD CT W/AUTO DIFF [HEME] DAILYLAB 03/17/23 05:00 CBC - COMP BLD CT W/AUTO DIFF [HEME] DAILYLAB 03/18/23 05:00 CBC - COMP BLD CT W/AUTO DIFF [HEME] DAILYLAB Subjective - Subjective Patient Reports: Cough, Shortness of Breath (Unchanged) Objective Vital Signs: Vital Signs - 24 hr 03/14/23 03/14/23 03/14/23 19:20 19:23 21:00 Temperature 36.9 C 36.7 C Heart Rate 89 Heart Rate [ 84 Brachial] Respiratory 18 18 20 Rate Blood Pressure 130/70 145/76 H [Right Brachial artery] O2 Saturation 97 93 If not protocol 6 5 6 : Oxygen Flow, liters/minute 03/14/23 03/15/23 03/15/23 23:49 04:43 06:15 Temperature 36.1 C L 36.4 C L Heart Rate 73 Heart Rate [ 88 78 Brachial] Respiratory 20 18 16 Rate Blood Pressure 131/85 H 135/87 H [Right Brachial artery] O2 Saturation 95 96 If not protocol 6 6 8 : Oxygen Flow, liters/minute 03/15/23 03/15/23 03/15/23 08:25 09:30 09:35 Temperature 36.5 C Heart Rate Heart Rate [ 79 Brachial] Respiratory 16 Rate Blood Pressure 133/65 H [Right Brachial artery] O2 Saturation 93 83 L 83 L If not protocol 93 6 10 : Oxygen Flow, liters/minute 03/15/23 03/15/23 03/15/23 09:40 09:48 10:00 Temperature Heart Rate Heart Rate [ Brachial] Respiratory Rate Blood Pressure [Right Brachial artery] O2 Saturation 90 L 92 97 If not protocol 15 15 15 : Oxygen Flow, liters/minute 03/15/23 03/15/23 03/15/23 10:05 10:55 11:02 Temperature Heart Rate 78 Heart Rate [ Brachial] Respiratory 17 Rate Blood Pressure [Right Brachial artery] O2 Saturation 97 93 If not protocol 6 6 2 : Oxygen Flow, liters/minute 03/15/23 03/15/23 03/15/23 13:00 14:48 17:00 Temperature 36.5 C 36.6 C Heart Rate 73 Heart Rate [ 83 74 Brachial] Respiratory 18 18 18 Rate Blood Pressure 132/75 H 133/73 H [Right Brachial artery] O2 Saturation 93 If not protocol 4 6 : Oxygen Flow, liters/minute 03/15/23 03/15/23 17:29 17:32 Temperature Heart Rate 79 Heart Rate [ Brachial] Respiratory 17 Rate Blood Pressure [Right Brachial artery] O2 Saturation If not protocol 2 6 : Oxygen Flow, liters/minute Oxygen O2 Source Oxymizer Oxygen Flow Rate 5 I&O (Last 24 Hrs): Intake and Output Totals x24h 03/13/23 03/14/23 03/15/23 23:59 23:59 23:59 Intake Total 460 Balance 460 General: Alert, Mild distress (from cough and is tachypneic) HEENT: Mucous membr. moist/pink, Other (edentulous. is wearing O2 via oximizer) Neuro: Alert, Non Focal Cardiovascular: Regular rate Respiratory: Wheezes, Rhonchi Abdomen: Soft, No tenderness Extremities: No clubbing, No edema, No tenderness/swelling - Results Results: Laboratory Results WBC 6.3 x10^3/uL (4.8-10.8) 03/15/23 04:47 RBC 4.50 10^6/uL (4.20-5.40) 03/15/23 04:47 Hgb 8.9 g/dL (12.0-16.0) L 03/15/23 04:47 Hct 35.3 % (37.0-47.0) L 03/15/23 04:47 MCV 78.4 fL (81.0-99.0) L 03/15/23 04:47 MCH 19.8 pg (27.0-31.0) L 03/15/23 04:47 MCHC 25.2 g/dL (32.0-36.0) L 03/15/23 04:47 RDW 20.5 % (12.0-15.0) H 03/15/23 04:47 Plt Count 288 10^3/uL (130-450) 03/15/23 04:47 MPV 9.6 fL (7.9-10.8) 03/15/23 04:47 Neut # (Auto) 5.6 10^3/uL (1.5-6.6) 03/15/23 04:47 Lymph # (Auto) 0.5 10^3/uL (1.5-3.5) L 03/15/23 04:47 [place] # (Auto) 0.1 10^3/uL (0.0-1.0) 03/15/23 04:47 Eos # (Auto) 0.0 10^3/uL (0.0-0.7) 03/15/23 04:47 Baso # (Auto) 0.0 10^3/uL (0.0-0.1) 03/15/23 04:47 Absolute Nucleated RBC 0.00 x10^3/uL 03/15/23 04:47 Nucleated RBC % 0.0 /100WBC 03/15/23 04:47 Manual Slide Review Indicated 03/15/23 04:47 Platelet Estimate NORMAL (130-450,000) (NORMAL) 03/15/23 04:47 Platelet Morphology NORMAL APPEARANCE (NORMAL) 03/15/23 04:47 Sodium 136 mmol/L (135-145) 03/15/23 04:47 Potassium 4.0 mmol/L (3.5-4.5) 03/15/23 04:47 Chloride 100 mmol/L (101-111) L 03/15/23 04:47 Carbon Dioxide 31 mmol/L (21-32) 03/15/23 04:47 Anion Gap 5.0 (6-13) L 03/15/23 04:47 BUN 12 mg/dL (6-20) 03/15/23 04:47 Creatinine 0.4 mg/dL (0.6-1.3) L 03/15/23 04:47 Estimated GFR (MDRD) 162 (>89) 03/15/23 04:47 Glucose 133 mg/dL (74-104) H 03/15/23 04:47 Lactic Acid < 0.2 mmol/L (0.5-2.2) L 03/14/23 14:56 Calcium 8.8 mg/dL (8.5-10.3) 03/15/23 04:47 Phosphorus 3.0 mg/dL (2.5-5.0) 03/15/23 04:47 Magnesium 1.8 mg/dL (1.7-2.3) 03/15/23 04:47 Iron < 10 ug/dL (50-212) L 03/15/23 04:47 TIBC 477 ug/dL (250-450) H 03/15/23 04:47 % Saturation TNP 03/15/23 04:47 Transferrin 341 mg/dL (203-362) 03/15/23 04:47 Total Bilirubin 0.4 mg/dL (0.2-1.0) 03/14/23 14:56 AST 21 IU/L (10-42) 03/14/23 14:56 ALT 12 IU/L (10-60) 03/14/23 14:56 Alkaline Phosphatase 97 IU/L (42-121) 03/14/23 14:56 Total Protein 7.8 g/dL (6.4-8.9) 03/14/23 14:56 Albumin 3.6 g/dL (3.2-5.5) 03/14/23 14:56 Globulin 4.2 g/dL (2.1-4.2) 03/14/23 14:56 Albumin/Globulin Ratio 0.9 (1.0-2.2) L 03/14/23 14:56 Urine Color YELLOW 03/14/23 16:05 Urine Clarity CLEAR (CLEAR) 03/14/23 16:05 Urine pH 6.0 PH (5.0-7.5) 03/14/23 16:05 Ur Specific [place] <=1.005 (1.002-1.030) 03/14/23 16:05 Urine Protein NEGATIVE mg/dL (NEGATIVE) 03/14/23 16:05 Urine Glucose (UA) NEGATIVE mg/dL (NEGATIVE) 03/14/23 16:05 Urine Ketones NEGATIVE mg/dL (NEGATIVE) 03/14/23 16:05 Urine Occult Blood NEGATIVE (NEGATIVE) 03/14/23 16:05 Urine Nitrite NEGATIVE (NEGATIVE) 03/14/23 16:05 Urine Bilirubin NEGATIVE (NEGATIVE) 03/14/23 16:05 Urine Urobilinogen 1 (NORMAL) E.U./dL (NORMAL) 03/14/23 16:05 Ur Leukocyte Esterase NEGATIVE (NEGATIVE) 03/14/23 16:05 Urine RBC None Seen /HPF (0-5) 03/14/23 16:05 Urine WBC 0-3 /HPF (0-5) 03/14/23 16:05 Ur Squamous Epith Cells FEW Squamous (<= Few) 03/14/23 16:05 Urine Bacteria None Seen /HPF (None Seen) 03/14/23 16:05 Urine Culture Comments NOT INDICATED 03/14/23 16:05 Nasal Adenovirus (PCR) NOT DETECTED 03/14/23 14:56 Nasal B. parapertussis DNA (PCR) NOT DETECTED 03/14/23 14:56 Nasal Coronavir 229E PCR NOT DETECTED 03/14/23 14:56 Nasal Coronavir HKU1 PCR NOT DETECTED 03/14/23 14:56 Nasal Coronavir NL63 PCR NOT DETECTED 03/14/23 14:56 Nasal Coronavir OC43 PCR NOT DETECTED 03/14/23 14:56 Nasal Enterovir/Rhinovir PCR NOT DETECTED 03/14/23 14:56 Nasal Influ A H1 2009 PCR DETECTED A 03/14/23 14:56 Nasal Influenza B PCR NOT DETECTED 03/14/23 14:56 Nasal Parainfluen 1 PCR NOT DETECTED 03/14/23 14:56 Nasal Parainfluen 2 PCR NOT DETECTED 03/14/23 14:56 Nasal Parainfluen 3 PCR NOT DETECTED 03/14/23 14:56 Nasal Parainfluen 4 PCR NOT DETECTED 03/14/23 14:56 Nasal RSV (PCR) NOT DETECTED 03/14/23 14:56 Nasal B.pertussis DNA PCR NOT DETECTED 03/14/23 14:56 Nasal C.pneumoniae (PCR) NOT DETECTED 03/14/23 14:56 [place] Human Metapneumo PCR NOT DETECTED 03/14/23 14:56 Nasal M.pneumoniae (PCR) NOT DETECTED 03/14/23 14:56 Nasal SARS-CoV-2 (PCR) NOT DETECTED 03/14/23 14:56 Sepsis Event Note (H) - Evaluation Current Stage of Sepsis: Sepsis Possible source of Sepsis: positive: Pulmonary - Sepsis Criteria Sepsis Criteria: Recorded Heart Rate greater than 90 bpm, Recorded Respiratory Rate greater than 20, Respiratory: Increasing oxygen requirements
[2023-03-16 05:23] LABS: BASOPHILS % (AUTO) 0.1 %; HCT - HEMATOCRIT 33.8 % (37.0-47.0); HGB - HEMOGLOBIN 8.9 g/dL (12.0-16.0); LYMPHOCYTES # (AUTO) 0.7 10^3/uL (1.5-3.5); LYMPHOCYTES % (AUTO) 4.7 %; MEAN CORPUSCULAR HEMOGLOBIN 20.5 pg (27.0-31.0); MEAN CORPUSCULAR HGB CONC 26.3 g/dL (32.0-36.0); MEAN CORPUSCULAR VOLUME 77.9 fL (81.0-99.0); MEAN PLATELET VOLUME 9.4 fL (7.9-10.8); MONOCYTES # (AUTO) 0.3 10^3/uL (0.0-1.0); MONOCYTES % (AUTO) 1.9 %; NEUTROPHILS # (AUTO) 12.7 10^3/uL (1.5-6.6); NEUTROPHILS % (AUTO) 92.6 %; PLT - PLATELET COUNT 313 10^3/uL (130-450); RED BLOOD COUNT 4.34 10^6/uL (4.20-5.40); RED CELL DISTRIBUTION WIDTH 20.9 % (12.0-15.0); WHITE BLOOD COUNT 13.7 x10^3/uL (4.8-10.8)
[2023-03-16 05:40] LABS: SLIDE REVIEW? Indicated
[2023-03-16 05:58] LABS: PLATELET ESTIMATE, MANUAL NORMAL (130-450,000) (NORMAL); PLATELET MORPHOLOGY NORMAL APPEARANCE (NORMAL)
--- NOTE | 2023-03-16 08:32 | PROVIDER PROGRESS NOTE ---
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 I suspect this is from getting iv steroids Plan: Continue the patient on DuoNebs scheduled and as needed every 4 hours, inhaled Pulmicort, IV steroids, Mucinex and montelukast and supplemental O2. Since chest x-ray was clear and WBC normal, no empiric antibiotics were started in the ER but I will check a respiratory sputum sample and send for gram stain and culture and if she has a very abn gram stain or grows bacteria, then we will start antibiotics>> It came back today showing many WBC and gram-positive cocci. I will start her on Zithromax 1500 mg total course. (3) Influenza A Conclusion/Plan: Plan: Continue with respiratory/droplet isolation Continue with Tamiflu for a 5-day course (4) Iron deficiency anemia Conclusion/Plan: Patient has quite a remarkable low MCV of 77 and anemia Her Iron panel came back showing severeiron deficiency with TIBC, and Plan: Will give 1 kaur of iv Iron Dextran Will start her on po ferrous Gluconate Await stool guaiac Follow CBC daily, transfuse if hemoglobin under 7 (5) Sepsis Conclusion/Plan: RESOLVED Patient met criteria for sepsis: Increasing oxygen needs, heart rate greater than 90 and respiratory rate greater than 20. She did have a normal WBC and lactic acid however. Plan: Cont to treat the underlying problems - Current Meds Current Meds: Current Medications Generic Name Dose Route Start Last Admin Trade Name Freq PRN Reason Stop Dose Admin Albuterol/Ipratropium 3 ml 03/14/23 19:00 03/16/23 07:28 Ipratropium/Albuterol 3 Ml Neb INH Not Given RTQID TOMÁS Budesonide 0.5 mg 03/14/23 19:00 03/16/23 07:28 Budesonide 0.5 Mg/2 Ml Neb INH Not Given RTBID [facility] Enoxaparin Sodium 40 mg 03/15/23 09:00 03/15/23 09:29 Enoxaparin 40 Mg/0.4 Ml Syringe SUBQ 40 mg DAILY TOMÁS Administration Guaifenesin 600 mg 03/14/23 21:00 03/15/23 20:23 Guaifenesin 600 Mg Tablet PO 600 mg BID TOMÁS Administration Ibuprofen 600 mg 03/14/23 18:38 03/16/23 05:04 Ibuprofen 600 Mg Tablet PO 600 mg Q6HR PRN Administration Mild Pain or Fever>38C(100.4F) Methylprednisolone 80 mg 03/14/23 22:00 03/16/23 06:09 Methylprednisolone Succinate 40 Mg/Ml Vial IVP 80 mg TID TOMÁS Administration Montelukast Sodium 10 mg 03/14/23 21:00 03/15/23 20:23 Montelukast 10 Mg Tablet PO 10 mg QPM TOMÁS Administration Oseltamivir Phosphate 75 mg 03/14/23 21:00 03/15/23 20:23 Oseltamivir 75 Mg Capsule PO 03/19/23 09:01 75 mg BID TOMÁS Administration Sodium Chloride 10 ml 03/15/23 01:00 03/15/23 22:35 Sodium Chloride Flush 0.9% 10 Ml Syringe IVP 10 ml 0100,0900,1700 TOMÁS Administration - Lab Result Fish Bone Diagrams: 03/16/23 05:03 03/15/23 04:47 - Additional Planning My Orders: My Active Orders 03/15/23 09:00 Enoxaparin [Lovenox] 40 mg SUBQ DAILY 03/16/23 07:54 Infection Precautions [RC] QSHIFT 03/17/23 05:00 CBC - COMP BLD CT W/AUTO DIFF [HEME] DAILYLAB 03/17/23 08:00 Ferrous Sulfate [Feosol] 325 mg PO DAILYWM 03/18/23 05:00 CBC - COMP BLD CT W/AUTO DIFF [HEME] DAILYLAB Subjective - Subjective Patient Reports: Feeling Better (SOB is better, cough and sputum unchanged), Cou gh, Shortness of Breath Objective Vital Signs: Vital Signs - 24 hr 03/15/23 03/15/23 03/15/23 09:30 09:35 09:40 Temperature Heart Rate Heart Rate [ Brachial] Respiratory Rate Blood Pressure [Right Brachial artery] O2 Saturation 83 L 83 L 90 L If not protocol 6 10 15 : Oxygen Flow, liters/minute 03/15/23 03/15/23 03/15/23 09:48 10:00 10:05 Temperature Heart Rate Heart Rate [ Brachial] Respiratory Rate Blood Pressure [Right Brachial artery] O2 Saturation 92 97 97 If not protocol 15 15 6 : Oxygen Flow, liters/minute 03/15/23 03/15/23 03/15/23 10:55 11:02 13:00 Temperature 36.5 C Heart Rate 78 Heart Rate [ 83 Brachial] Respiratory 17 18 Rate Blood Pressure 132/75 H [Right Brachial artery] O2 Saturation 93 If not protocol 6 2 : Oxygen Flow, liters/minute 03/15/23 03/15/23 03/15/23 14:48 17:00 17:29 Temperature 36.6 C Heart Rate 73 79 Heart Rate [ 74 Brachial] Respiratory 18 18 17 Rate Blood Pressure 133/73 H [Right Brachial artery] O2 Saturation 93 If not protocol 4 6 2 : Oxygen Flow, liters/minute 03/15/23 03/15/23 03/15/23 17:32 20:08 23:30 Temperature 37.0 C 37.0 C Heart Rate Heart Rate [ 77 82 Brachial] Respiratory 18 18 Rate Blood Pressure 129/68 136/74 H [Right Brachial artery] O2 Saturation 91 L 92 If not protocol 6 6 5 : Oxygen Flow, liters/minute 03/16/23 03/16/23 05:01 08:22 Temperature 36.3 C L 36.7 C Heart Rate Heart Rate [ 78 68 Brachial] Respiratory 22 18 Rate Blood Pressure 145/83 H 102/50 L [Right Brachial artery] O2 Saturation 93 93 If not protocol 5 5 : Oxygen Flow, liters/minute Oxygen O2 Source Oxymizer Oxygen Flow Rate 5 I&O (Last 24 Hrs): Intake and Output Totals x24h 03/14/23 03/15/23 03/16/23 23:59 23:59 23:59 Intake Total 830 Balance 830 General: Alert, Oriented x3, Other (Thin female (BMI 23), appears older than her age) HEENT: Mucous membr. moist/pink, Other (Edentulous. Wearing O2 via oximizer.) Neuro: Alert, Non Focal Cardiovascular: Regular rate Respiratory: Wheezes (Poor air mvm "tight" in all lung ortez), Rales (R base) Abdomen: Soft, No tenderness Extremities: No clubbing, No edema, No tenderness/swelling - Results Results: Laboratory Results WBC 13.7 x10^3/uL (4.8-10.8) H 03/16/23 05:03 RBC 4.34 10^6/uL (4.20-5.40) 03/16/23 05:03 Hgb 8.9 g/dL (12.0-16.0) L 03/16/23 05:03 Hct 33.8 % (37.0-47.0) L 03/16/23 05:03 MCV 77.9 fL (81.0-99.0) L 03/16/23 05:03 MCH 20.5 pg (27.0-31.0) L 03/16/23 05:03 MCHC 26.3 g/dL (32.0-36.0) L 03/16/23 05:03 RDW 20.9 % (12.0-15.0) H 03/16/23 05:03 Plt Count 313 10^3/uL (130-450) 03/16/23 05:03 MPV 9.4 fL (7.9-10.8) 03/16/23 05:03 Neut # (Auto) 12.7 10^3/uL (1.5-6.6) H 03/16/23 05:03 Lymph # (Auto) 0.7 10^3/uL (1.5-3.5) L 03/16/23 05:03 [place] # (Auto) 0.3 10^3/uL (0.0-1.0) 03/16/23 05:03 Eos # (Auto) 0.0 10^3/uL (0.0-0.7) 03/16/23 05:03 Baso # (Auto) 0.0 10^3/uL (0.0-0.1) 03/16/23 05:03 Absolute Nucleated RBC 0.00 x10^3/uL 03/16/23 05:03 Nucleated RBC % 0.0 /100WBC 03/16/23 05:03 Manual Slide Review Indicated 03/16/23 05:03 Platelet Estimate NORMAL (130-450,000) (NORMAL) 03/16/23 05:03 Platelet Morphology NORMAL APPEARANCE (NORMAL) 03/16/23 05:03 Sodium 136 mmol/L (135-145) 03/15/23 04:47 Potassium 4.0 mmol/L (3.5-4.5) 03/15/23 04:47 Chloride 100 mmol/L (101-111) L 03/15/23 04:47 Carbon Dioxide 31 mmol/L (21-32) 03/15/23 04:47 Anion Gap 5.0 (6-13) L 03/15/23 04:47 BUN 12 mg/dL (6-20) 03/15/23 04:47 Creatinine 0.4 mg/dL (0.6-1.3) L 03/15/23 04:47 Estimated GFR (MDRD) 162 (>89) 03/15/23 04:47 Glucose 133 mg/dL (74-104) H 03/15/23 04:47 Lactic Acid < 0.2 mmol/L (0.5-2.2) L 03/14/23 14:56 Calcium 8.8 mg/dL (8.5-10.3) 03/15/23 04:47 Phosphorus 3.0 mg/dL (2.5-5.0) 03/15/23 04:47 Magnesium 1.8 mg/dL (1.7-2.3) 03/15/23 04:47 Iron < 10 ug/dL (50-212) L 03/15/23 04:47 TIBC 477 ug/dL (250-450) H 03/15/23 04:47 % Saturation TNP 03/15/23 04:47 Transferrin 341 mg/dL (203-362) 03/15/23 04:47 Total Bilirubin 0.4 mg/dL (0.2-1.0) 03/14/23 14:56 AST 21 IU/L (10-42) 03/14/23 14:56 ALT 12 IU/L (10-60) 03/14/23 14:56 Alkaline Phosphatase 97 IU/L (42-121) 03/14/23 14:56 Total Protein 7.8 g/dL (6.4-8.9) 03/14/23 14:56 Albumin 3.6 g/dL (3.2-5.5) 03/14/23 14:56 Globulin 4.2 g/dL (2.1-4.2) 03/14/23 14:56 Albumin/Globulin Ratio 0.9 (1.0-2.2) L 03/14/23 14:56 Urine Color YELLOW 03/14/23 16:05 Urine Clarity CLEAR (CLEAR) 03/14/23 16:05 Urine pH 6.0 PH (5.0-7.5) 03/14/23 16:05 Ur Specific [place] <=1.005 (1.002-1.030) 03/14/23 16:05 Urine Protein NEGATIVE mg/dL (NEGATIVE) 03/14/23 16:05 Urine Glucose (UA) NEGATIVE mg/dL (NEGATIVE) 03/14/23 16:05 Urine Ketones NEGATIVE mg/dL (NEGATIVE) 03/14/23 16:05 Urine Occult Blood NEGATIVE (NEGATIVE) 03/14/23 16:05 Urine Nitrite NEGATIVE (NEGATIVE) 03/14/23 16:05 Urine Bilirubin NEGATIVE (NEGATIVE) 03/14/23 16:05 Urine Urobilinogen 1 (NORMAL) E.U./dL (NORMAL) 03/14/23 16:05 Ur Leukocyte Esterase NEGATIVE (NEGATIVE) 03/14/23 16:05 Urine RBC None Seen /HPF (0-5) 03/14/23 16:05 Urine WBC 0-3 /HPF (0-5) 03/14/23 16:05 Ur Squamous Epith Cells FEW Squamous (<= Few) 03/14/23 16:05 Urine Bacteria None Seen /HPF (None Seen) 03/14/23 16:05 Urine Culture Comments NOT INDICATED 03/14/23 16:05 Nasal Adenovirus (PCR) NOT DETECTED 03/14/23 14:56 Nasal B. parapertussis DNA (PCR) NOT DETECTED 03/14/23 14:56 Nasal Coronavir 229E PCR NOT DETECTED 03/14/23 14:56 Nasal Coronavir HKU1 PCR NOT DETECTED 03/14/23 14:56 Nasal Coronavir NL63 PCR NOT DETECTED 03/14/23 14:56 Nasal Coronavir OC43 PCR NOT DETECTED 03/14/23 14:56 Nasal Enterovir/Rhinovir PCR NOT DETECTED 03/14/23 14:56 Nasal Influ A H1 2009 PCR DETECTED A 03/14/23 14:56 Nasal Influenza B PCR NOT DETECTED 03/14/23 14:56 Nasal Parainfluen 1 PCR NOT DETECTED 03/14/23 14:56 Nasal Parainfluen 2 PCR NOT DETECTED 03/14/23 14:56 Nasal Parainfluen 3 PCR NOT DETECTED 03/14/23 14:56 Nasal Parainfluen 4 PCR NOT DETECTED 03/14/23 14:56 Nasal RSV (PCR) NOT DETECTED 03/14/23 14:56 Nasal B.pertussis DNA PCR NOT DETECTED 03/14/23 14:56 Nasal C.pneumoniae (PCR) NOT DETECTED 03/14/23 14:56 [place] Human Metapneumo PCR NOT DETECTED 03/14/23 14:56 Nasal M.pneumoniae (PCR) NOT DETECTED 03/14/23 14:56 Nasal SARS-CoV-2 (PCR) NOT DETECTED 03/14/23 14:56 Sepsis Event Note (H) - Evaluation Current Stage of Sepsis: Sepsis Possible source of Sepsis: positive: Pulmonary - Sepsis Criteria Sepsis Criteria: Recorded Heart Rate greater than 90 bpm, Recorded Respiratory Rate greater than 20, Respiratory: Increasing oxygen requirements
[2023-03-16] MEDS ORDERED: IRON DEXTRAN 1,000 MG in SODIUM CHLORIDE 0.9% 250 ML IV ONE (11:00)
--- NOTE | 2023-03-16 11:56 | PHARMACY PROGRESS NOTE ---
- Best Possible Medication History Admit Date and Time: 03/14/23 1821 Processed by: Pharmacy Medication History completed: Yes Patient Interview: Completed Secondary Source(s): Physician records, Insurance records As the person ultimately responsible for medication therapy, providers are able to order a medication from an existing home medication list in [facility] via the "Reconcile Routine" prior to Confirmation of that medication by computer customer support specialist. Such practice is discouraged except when the physician, in their clinical judgment, deems that a medical need exists for a medication without regard to previous use.
[2023-03-16] MEDS: IRON DEXTRAN 1,000 MG in SODIUM CHLORIDE 0.9% 250 ML IV ONE (12:04)
[2023-03-16] MEDS: AZITHROMYCIN 250 MG TABLET PO STA (17:04)
[2023-03-17 05:28] LABS: BASOPHILS % (AUTO) 0.1 %; HCT - HEMATOCRIT 33.1 % (37.0-47.0); HGB - HEMOGLOBIN 8.3 g/dL (12.0-16.0); LYMPHOCYTES # (AUTO) 0.6 10^3/uL (1.5-3.5); LYMPHOCYTES % (AUTO) 4.9 %; MEAN CORPUSCULAR HEMOGLOBIN 20.3 pg (27.0-31.0); MEAN CORPUSCULAR HGB CONC 25.1 g/dL (32.0-36.0); MEAN CORPUSCULAR VOLUME 81.1 fL (81.0-99.0); MEAN PLATELET VOLUME 9.4 fL (7.9-10.8); MONOCYTES # (AUTO) 0.3 10^3/uL (0.0-1.0); MONOCYTES % (AUTO) 2.5 %; NEUTROPHILS # (AUTO) 10.2 10^3/uL (1.5-6.6); NEUTROPHILS % (AUTO) 91.9 %; PLT - PLATELET COUNT 351 10^3/uL (130-450); RED BLOOD COUNT 4.08 10^6/uL (4.20-5.40); RED CELL DISTRIBUTION WIDTH 20.8 % (12.0-15.0); WHITE BLOOD COUNT 11.1 x10^3/uL (4.8-10.8)
[2023-03-17 05:50] LABS: SLIDE REVIEW? Indicated
[2023-03-17 06:10] LABS: CALCIUM 8.9 mg/dL (8.5-10.3); CREATININE 0.5 mg/dL (0.6-1.3); POTASSIUM 4.3 mmol/L (3.5-4.5)
[2023-03-17 06:59] LABS: PLATELET MORPHOLOGY NORMAL APPEARANCE (NORMAL)
[2023-03-17 07:00] LABS: PLATELET ESTIMATE, MANUAL NORMAL (130-450,000) (NORMAL)
[2023-03-17] MEDS: AZITHROMYCIN 250 MG TABLET PO SCH (09:27)
[2023-03-17] MEDS: FERROUS SULFATE 325 MG TABLET PO SCH (09:27)
--- NOTE | 2023-03-17 13:33 | PROVIDER PROGRESS NOTE ---
Assessment/Plan - Problem List (1) Acute respiratory failure with hypoxia Assessment/Plan: Patient is a COPDer but does not use oxygen at home Cause of her hypoxia appears to be her COPD exacerbation and viral upper respiratory infection Plan: Give supplemental O2 with target O2 sat 88% and above Treat the underlying problems She will need an oximetry walk test on the day of discharge to see if she needs an new order for home O2 (2) COPD exacerbation Conclusion/Plan: Her WBC was normal and today paulette (all labs were reviewed). I suspect this is from getting iv steroids. Since chest x-ray was clear and WBC normal at admission, no empiric antibiotics were started in the ER. I checked a respiratory sputum sample for gram stain and culture and it came back showing many WBC and gram-positive cocci. I started her on Zithromax and plan a 1500 mg total course. Plan: Continue the patient on DuoNebs scheduled and as needed every 4 hours, inhaled Pulmicort, IV steroids, Mucinex and montelukast and supplemental O2. I will order chest PT with vest for expectoration (3) Influenza A Conclusion/Plan: Plan: Continue with respiratory/droplet isolation Continue with Tamiflu for a 5-day course (4) Iron deficiency anemia Conclusion/Plan: Patient has quite a remarkable low MCV of 77 and anemia Her Iron panel came back showing severeiron deficiency with TIBC, and She got 1 dose of iv Iron Dextran I started her on po ferrous Gluconate Plan: Await stool guaiac Follow CBC daily, transfuse if hemoglobin under 7 (5) Sepsis Conclusion/Plan: RESOLVED Patient met criteria for sepsis: Increasing oxygen needs, heart rate greater than 90 and respiratory rate greater than 20. She did have a normal WBC and lactic acid however. Plan: Cont to treat the underlying problems - Current Meds Current Meds: Current Medications Generic Name Dose Route Start Last Admin Trade Name Freq PRN Reason Stop Dose Admin Albuterol/Ipratropium 3 ml 03/14/23 19:00 03/17/23 10:11 Ipratropium/Albuterol 3 Ml Neb INH 3 ml RTQID TOMÁS Administration Azithromycin 500 mg 03/17/23 09:00 03/17/23 09:27 Azithromycin 250 Mg Tablet PO 03/18/23 09:01 500 mg DAILY TOMÁS Administration Budesonide 0.5 mg 03/14/23 19:00 03/17/23 07:43 Budesonide 0.5 Mg/2 Ml Neb INH 0.5 mg RTBID TOMÁS Administration Enoxaparin Sodium 40 mg 03/15/23 09:00 03/17/23 09:27 Enoxaparin 40 Mg/0.4 Ml Syringe SUBQ 40 mg DAILY TOMÁS Administration Ferrous Sulfate 325 mg 03/17/23 08:00 03/17/23 09:27 Ferrous Sulfate 325 Mg Tablet PO 325 mg DAILYWM TOMÁS Administration Guaifenesin 600 mg 03/14/23 21:00 03/17/23 09:27 Guaifenesin 600 Mg Tablet PO 600 mg BID TOMÁS Administration Ibuprofen 600 mg 03/14/23 18:38 03/16/23 05:04 Ibuprofen 600 Mg Tablet PO 600 mg Q6HR PRN Administration Mild Pain or Fever>38C(100.4F) Methylprednisolone 80 mg 03/14/23 22:00 03/17/23 05:59 Methylprednisolone Succinate 40 Mg/Ml Vial IVP 80 mg TID TOMÁS Administration Montelukast Sodium 10 mg 03/14/23 21:00 03/16/23 20:54 Montelukast 10 Mg Tablet PO 10 mg QPM TOMÁS Administration Oseltamivir Phosphate 75 mg 03/14/23 21:00 03/17/23 09:37 Oseltamivir 75 Mg Capsule PO 03/19/23 09:01 75 mg BID TOMÁS Administration Sodium Chloride 10 ml 03/15/23 01:00 03/17/23 09:30 Sodium Chloride Flush 0.9% 10 Ml Syringe IVP 10 ml 0100,0900,1700 TOMÁS Administration - Lab Result Fish Bone Diagrams: 03/17/23 05:20 03/17/23 05:20 - Additional Planning My Orders: My Active Orders 03/16/23 15:50 CUL, RESPIRATORY [RM] Stat 03/17/23 07:33 Miscellaenous Nursing Order [RC] QSHIFT 03/17/23 08:00 Ferrous Sulfate [Feosol] 325 mg PO DAILYWM 03/17/23 09:00 Azithromycin [Zithromax] 500 mg PO DAILY 03/17/23 09:16 Chest [CPT - Chest Physical Therapy] [RC] TID 03/18/23 05:00 25-HYDROXY VIT D LCMS D2+D3 [REFLAB] DAILYLAB BMP - BASIC METABOLIC PANEL [CHEM] DAILYLAB CBC - COMP BLD CT W/AUTO DIFF [HEME] DAILYLAB 03/19/23 05:00 BMP - BASIC METABOLIC PANEL [CHEM] DAILYLAB Subjective - Subjective Patient Reports: Feeling Better (Has better energy and less cough, is still very SOB) Objective Vital Signs: Vital Signs - 24 hr 03/16/23 03/16/23 03/16/23 15:33 15:44 18:03 Temperature 36.4 C L Heart Rate 72 79 Heart Rate [ 72 Brachial] Respiratory 16 18 17 Rate Blood Pressure 114/59 L [Right Brachial artery] O2 Saturation 93 If not protocol 5 5 5 : Oxygen Flow, liters/minute 03/16/23 03/17/23 03/17/23 20:53 00:02 05:15 Temperature 36.5 C 36.6 C 36.6 C Heart Rate Heart Rate [ 69 66 74 Brachial] Respiratory 16 16 16 Rate Blood Pressure 120/63 126/70 136/80 H [Right Brachial artery] O2 Saturation 95 93 92 If not protocol 5 5 5 : Oxygen Flow, liters/minute 03/17/23 07:47 Temperature Heart Rate 88 Heart Rate [ Brachial] Respiratory 20 Rate Blood Pressure [Right Brachial artery] O2 Saturation If not protocol 5 : Oxygen Flow, liters/minute Oxygen O2 Source Nasal cannula Oxygen Flow Rate 5 I&O (Last 24 Hrs): Intake and Output Totals x24h 03/15/23 03/16/23 03/17/23 23:59 23:59 23:59 Intake Total 830 1430 860 Balance 830 1430 860 General: Alert, Oriented x3 HEENT: Mucous membr. moist/pink, Other (edentulous) Neuro: Alert, Non Focal Cardiovascular: Regular rate, No murmurs Respiratory: No respiratory distress (on O2 supplemental), Rhonchi (diffuse rhonchi in all lung ortez) Extremities: No clubbing, No edema, No tenderness/swelling - Results Results: Laboratory Results WBC 11.1 x10^3/uL (4.8-10.8) H 03/17/23 05:20 RBC 4.08 10^6/uL (4.20-5.40) L 03/17/23 05:20 Hgb 8.3 g/dL (12.0-16.0) L 03/17/23 05:20 Hct 33.1 % (37.0-47.0) L 03/17/23 05:20 MCV 81.1 fL (81.0-99.0) 03/17/23 05:20 MCH 20.3 pg (27.0-31.0) L 03/17/23 05:20 MCHC 25.1 g/dL (32.0-36.0) L 03/17/23 05:20 RDW 20.8 % (12.0-15.0) H 03/17/23 05:20 Plt Count 351 10^3/uL (130-450) 03/17/23 05:20 MPV 9.4 fL (7.9-10.8) 03/17/23 05:20 Neut # (Auto) 10.2 10^3/uL (1.5-6.6) H 03/17/23 05:20 Lymph # (Auto) 0.6 10^3/uL (1.5-3.5) L 03/17/23 05:20 Stokes # (Auto) 0.3 10^3/uL (0.0-1.0) 03/17/23 05:20 Eos # (Auto) 0.0 10^3/uL (0.0-0.7) 03/17/23 05:20 Baso # (Auto) 0.0 10^3/uL (0.0-0.1) 03/17/23 05:20 Absolute Nucleated RBC 0.00 x10^3/uL 03/17/23 05:20 Nucleated RBC % 0.0 /100WBC 03/17/23 05:20 Manual Slide Review Indicated 03/17/23 05:20 Platelet Estimate NORMAL (130-450,000) (NORMAL) 03/17/23 05:20 Platelet Morphology NORMAL APPEARANCE (NORMAL) 03/17/23 05:20 Sodium 138 mmol/L (135-145) 03/17/23 05:20 Potassium 4.3 mmol/L (3.5-4.5) 03/17/23 05:20 Chloride 102 mmol/L (101-111) 03/17/23 05:20 Carbon Dioxide 32 mmol/L (21-32) 03/17/23 05:20 Anion Gap 4.0 (6-13) L 03/17/23 05:20 BUN 16 mg/dL (6-20) 03/17/23 05:20 Creatinine 0.5 mg/dL (0.6-1.3) L 03/17/23 05:20 Estimated GFR (MDRD) 125 (>89) 03/17/23 05:20 Glucose 129 mg/dL (74-104) H 03/17/23 05:20 Lactic Acid < 0.2 mmol/L (0.5-2.2) L 03/14/23 14:56 Calcium 8.9 mg/dL (8.5-10.3) 03/17/23 05:20 Phosphorus 3.0 mg/dL (2.5-5.0) 03/15/23 04:47 Magnesium 1.8 mg/dL (1.7-2.3) 03/15/23 04:47 Iron < 10 ug/dL (50-212) L 03/15/23 04:47 TIBC 477 ug/dL (250-450) H 03/15/23 04:47 % Saturation TNP 03/15/23 04:47 Transferrin 341 mg/dL (203-362) 03/15/23 04:47 Total Bilirubin 0.4 mg/dL (0.2-1.0) 03/14/23 14:56 AST 21 IU/L (10-42) 03/14/23 14:56 ALT 12 IU/L (10-60) 03/14/23 14:56 Alkaline Phosphatase 97 IU/L (42-121) 03/14/23 14:56 Total Protein 7.8 g/dL (6.4-8.9) 03/14/23 14:56 Albumin 3.6 g/dL (3.2-5.5) 03/14/23 14:56 Globulin 4.2 g/dL (2.1-4.2) 03/14/23 14:56 Albumin/Globulin Ratio 0.9 (1.0-2.2) L 03/14/23 14:56 Urine Color YELLOW 03/14/23 16:05 Urine Clarity CLEAR (CLEAR) 03/14/23 16:05 Urine pH 6.0 PH (5.0-7.5) 03/14/23 16:05 Ur Specific [place] <=1.005 (1.002-1.030) 03/14/23 16:05 Urine Protein NEGATIVE mg/dL (NEGATIVE) 03/14/23 16:05 Urine Glucose (UA) NEGATIVE mg/dL (NEGATIVE) 03/14/23 16:05 Urine Ketones NEGATIVE mg/dL (NEGATIVE) 03/14/23 16:05 Urine Occult Blood NEGATIVE (NEGATIVE) 03/14/23 16:05 Urine Nitrite NEGATIVE (NEGATIVE) 03/14/23 16:05 Urine Bilirubin NEGATIVE (NEGATIVE) 03/14/23 16:05 Urine Urobilinogen 1 (NORMAL) E.U./dL (NORMAL) 03/14/23 16:05 Ur Leukocyte Esterase NEGATIVE (NEGATIVE) 03/14/23 16:05 Urine RBC None Seen /HPF (0-5) 03/14/23 16:05 Urine WBC 0-3 /HPF (0-5) 03/14/23 16:05 Ur Squamous Epith Cells FEW Squamous (<= Few) 03/14/23 16:05 Urine Bacteria None Seen /HPF (None Seen) 03/14/23 16:05 Urine Culture Comments NOT INDICATED 03/14/23 16:05 Nasal Adenovirus (PCR) NOT DETECTED 03/14/23 14:56 Nasal B. parapertussis DNA (PCR) NOT DETECTED 03/14/23 14:56 Nasal Coronavir 229E PCR NOT DETECTED 03/14/23 14:56 Nasal Coronavir HKU1 PCR NOT DETECTED 03/14/23 14:56 Nasal Coronavir NL63 PCR NOT DETECTED 03/14/23 14:56 Nasal Coronavir OC43 PCR NOT DETECTED 03/14/23 14:56 Nasal Enterovir/Rhinovir PCR NOT DETECTED 03/14/23 14:56 Nasal Influ A H1 2009 PCR DETECTED A 03/14/23 14:56 Nasal Influenza B PCR NOT DETECTED 03/14/23 14:56 Nasal Parainfluen 1 PCR NOT DETECTED 03/14/23 14:56 Nasal Parainfluen 2 PCR NOT DETECTED 03/14/23 14:56 Nasal Parainfluen 3 PCR NOT DETECTED 03/14/23 14:56 Nasal Parainfluen 4 PCR NOT DETECTED 03/14/23 14:56 Nasal RSV (PCR) NOT DETECTED 03/14/23 14:56 Nasal B.pertussis DNA PCR NOT DETECTED 03/14/23 14:56 Nasal C.pneumoniae (PCR) NOT DETECTED 03/14/23 14:56 Brandon Human Metapneumo PCR NOT DETECTED 01/26/24 14:56 Nasal M.pneumoniae (PCR) NOT DETECTED 03/14/23 14:56 Nasal SARS-CoV-2 (PCR) NOT DETECTED 03/14/23 14:56 Sepsis Event Note (H) - Evaluation Current Stage of Sepsis: Sepsis Possible source of Sepsis: positive: Pulmonary - Sepsis Criteria Sepsis Criteria: Recorded Heart Rate greater than 90 bpm, Recorded Respiratory Rate greater than 20, Respiratory: Increasing oxygen requirements
[2023-03-18 06:11] LABS: BASOPHILS % (AUTO) 0.1 %; HGB - HEMOGLOBIN 8.3 g/dL (12.0-16.0); LYMPHOCYTES # (AUTO) 0.4 10^3/uL (1.5-3.5); LYMPHOCYTES % (AUTO) 4.6 %; MEAN CORPUSCULAR HEMOGLOBIN 20.6 pg (27.0-31.0); MEAN CORPUSCULAR HGB CONC 25.2 g/dL (32.0-36.0); MEAN CORPUSCULAR VOLUME 82.1 fL (81.0-99.0); MEAN PLATELET VOLUME 9.5 fL (7.9-10.8); MONOCYTES # (AUTO) 0.3 10^3/uL (0.0-1.0); NEUTROPHILS # (AUTO) 8.3 10^3/uL (1.5-6.6); NEUTROPHILS % (AUTO) 91.2 %; PLT - PLATELET COUNT 377 10^3/uL (130-450); RED BLOOD COUNT 4.02 10^6/uL (4.20-5.40); RED CELL DISTRIBUTION WIDTH 20.6 % (12.0-15.0); WHITE BLOOD COUNT 9.1 x10^3/uL (4.8-10.8)
[2023-03-18 06:15] LABS: SLIDE REVIEW? Indicated
[2023-03-18 06:22] LABS: CALCIUM 8.6 mg/dL (8.5-10.3); CREATININE 0.5 mg/dL (0.6-1.3); POTASSIUM 3.8 mmol/L (3.5-4.5)
[2023-03-18 06:59] LABS: PLATELET ESTIMATE, MANUAL NORMAL (130-450,000) (NORMAL)
[2023-03-18] MEDS: PRENATAL VITAMIN TABLET PO SCH (17:36)
--- NOTE | 2023-03-18 23:29 | PROVIDER PROGRESS NOTE ---
Assessment/Plan - Problem List (1) Acute respiratory failure with hypoxia Assessment/Plan: Patient does not use oxygen at home. Cause of her hypoxia appears to be her COPD exacerbation and viral upper resp iratory infection Plan: Give supplemental O2 with target O2 sat 88% and above.She continues to require 5 L/min by nasal cannula to maintain her oxygen saturation greater than 90%. Continue IV corticosteroids and bronchodilators. (2) COPD exacerbation Conclusion/Plan: Plan: Continue IV steroids and bronchodilators. (3) Influenza A Conclusion/Plan: Plan: Continue with respiratory/droplet isolation Continue with Tamiflu for a 5-day course (4) Iron deficiency anemia Conclusion/Plan: Patient received 1 dose of IV iron andContinue to monitor CBC intermittently. (5) Sepsis Conclusion/Plan: RESOLVED - Current Meds Current Meds: Current Medications Generic Name Dose Route Start Last Admin Trade Name Freq PRN Reason Stop Dose Admin Albuterol/Ipratropium 3 ml 03/14/23 19:00 03/18/23 20:21 Ipratropium/Albuterol 3 Ml Neb INH 3 ml RTQID TOMÁS Administration Budesonide 0.5 mg 03/14/23 19:00 03/18/23 20:21 Budesonide 0.5 Mg/2 Ml Neb INH 0.5 mg RTBID TOMÁS Administration Enoxaparin Sodium 40 mg 03/15/23 09:00 03/18/23 08:11 Enoxaparin 40 Mg/0.4 Ml Syringe SUBQ 40 mg DAILY TOMÁS Administration Ferrous Sulfate 325 mg 03/17/23 08:00 03/18/23 08:11 Ferrous Sulfate 325 Mg Tablet PO 325 mg DAILYWM TOMÁS Administration Guaifenesin 600 mg 03/14/23 21:00 03/18/23 21:22 Guaifenesin 600 Mg Tablet PO 600 mg BID TOMÁS Administration Ibuprofen 600 mg 03/14/23 18:38 03/16/23 05:04 Ibuprofen 600 Mg Tablet PO 600 mg Q6HR PRN Administration Mild Pain or Fever>38C(100.4F) Methylprednisolone 80 mg 03/14/23 22:00 03/18/23 21:22 Methylprednisolone Succinate 40 Mg/Ml Vial IVP 80 mg TID TOMÁS Administration Montelukast Sodium 10 mg 03/14/23 21:00 03/18/23 21:22 Montelukast 10 Mg Tablet PO 10 mg QPM TOMÁS Administration Oseltamivir Phosphate 75 mg 03/14/23 21:00 03/18/23 21:22 Oseltamivir 75 Mg Capsule PO 03/19/23 09:01 75 mg BID TOMÁS Administration Multivit/Folic Acid/Iron 1 tab 03/18/23 17:00 03/18/23 17:36 Vitamin Tablet PO 1 tab DAILYWM TOMÁS Administration Sodium Chloride 10 ml 03/15/23 01:00 03/18/23 17:36 Sodium Chloride Flush 0.9% 10 Ml Syringe IVP 10 ml 0100,0900,1700 TOMÁS Administration - Lab Result Fish Bone Diagrams: 03/22/23 05:14 03/22/23 05:14 - Additional Planning My Orders: My Active Orders 03/18/23 Lunch Regular Diet [DIET] 03/18/23 17:00 Vitamin [Trinatal Rx 1] 1 tab PO DAILYWM Subjective - Subjective Patient Reports: Other (Alert. Following commands. No other complaints at this time.) Objective Vital Signs: Vital Signs - 24 hr 03/17/23 03/18/23 03/18/23 23:47 07:15 11:55 Temperature 36.2 C L Heart Rate 90 84 Heart Rate [ 67 Brachial] Respiratory 18 20 20 Rate Blood Pressure 152/83 H [Right Brachial artery] O2 Saturation 93 If not protocol 5 6 6 : Oxygen Flow, liters/minute 03/18/23 03/18/23 03/18/23 11:56 15:13 15:52 Temperature 36.8 C 36.6 C Heart Rate 84 Heart Rate [ 71 71 Brachial] Respiratory 16 20 16 Rate Blood Pressure 150/84 H 129/69 [Right Brachial artery] O2 Saturation 93 86 L If not protocol 6 3 4 : Oxygen Flow, liters/minute 03/18/23 03/18/23 03/18/23 15:57 18:00 20:20 Temperature Heart Rate 72 Heart Rate [ Brachial] Respiratory 20 Rate Blood Pressure [Right Brachial artery] O2 Saturation 92 88 L If not protocol 5 5 4 : Oxygen Flow, liters/minute Oxygen O2 Source Nasal cannula Oxygen Flow Rate 5 I&O (Last 24 Hrs): Intake and Output Totals x24h 03/16/23 03/17/23 03/18/23 23:59 23:59 23:59 Intake Total 1430 1620 1400 Balance 1430 1620 1400 General: Alert, Oriented x3, No acute distress HEENT: Atraumatic Neck: Supple, No JVD, No thyromegaly Neuro: Alert, Non Focal Cardiovascular: Regular rate, Other (Positive S1-S2 no extra heart sounds) Respiratory: Other (Fair air exchange in all lung ortez no wheezing no crackles) Abdomen: Normal bowel sounds, Soft, No tenderness Extremities: No clubbing, No cyanosis Skin: No rashes - Results Results: Laboratory Results WBC 9.1 x10^3/uL (4.8-10.8) 03/18/23 05:55 RBC 4.02 10^6/uL (4.20-5.40) L 03/18/23 05:55 Hgb 8.3 g/dL (12.0-16.0) L 03/18/23 05:55 Hct 33.0 % (37.0-47.0) L 03/18/23 05:55 MCV 82.1 fL (81.0-99.0) 03/18/23 05:55 MCH 20.6 pg (27.0-31.0) L 03/18/23 05:55 MCHC 25.2 g/dL (32.0-36.0) L 03/18/23 05:55 RDW 20.6 % (12.0-15.0) H 03/18/23 05:55 Plt Count 377 10^3/uL (130-450) 03/18/23 05:55 MPV 9.5 fL (7.9-10.8) 03/18/23 05:55 Neut # (Auto) 8.3 10^3/uL (1.5-6.6) H 03/18/23 05:55 Lymph # (Auto) 0.4 10^3/uL (1.5-3.5) L 03/18/23 05:55 Glynn # (Auto) 0.3 10^3/uL (0.0-1.0) 03/18/23 05:55 Eos # (Auto) 0.0 10^3/uL (0.0-0.7) 03/18/23 05:55 Baso # (Auto) 0.0 10^3/uL (0.0-0.1) 03/18/23 05:55 Absolute Nucleated RBC 0.00 x10^3/uL 03/18/23 05:55 Nucleated RBC % 0.0 /100WBC 03/18/23 05:55 Manual Slide Review Indicated 03/18/23 05:55 Platelet Estimate NORMAL (130-450,000) (NORMAL) 03/18/23 05:55 Platelet Morphology NORMAL APPEARANCE (NORMAL) 03/17/23 05:20 RBC Morph Micro Appear 1+ ANISOCYTOSIS (NORMAL) 1+ HYPOCHROMASIA (NORMAL) 1+ POLYCHROMASIA (NORMAL) 1+ OVALOCYTES (NORMAL) 03/18/23 05:55 RBC Morph Micro Appear 1+ ANISOCYTOSIS (NORMAL) 1+ HYPOCHROMASIA (NORMAL) 1+ POLYCHROMASIA (NORMAL) 1+ OVALOCYTES (NORMAL) 03/18/23 05:55 RBC Morph Micro Appear 1+ ANISOCYTOSIS (NORMAL) 1+ HYPOCHROMASIA (NORMAL) 1+ POLYCHROMASIA (NORMAL) 1+ OVALOCYTES (NORMAL) 03/18/23 05:55 RBC Morph Micro Appear 1+ ANISOCYTOSIS (NORMAL) 1+ HYPOCHROMASIA (NORMAL) 1+ POLYCHROMASIA (NORMAL) 1+ OVALOCYTES (NORMAL) 03/18/23 05:55 Sodium 139 mmol/L (135-145) 03/18/23 05:55 Potassium 3.8 mmol/L (3.5-4.5) 03/18/23 05:55 Chloride 101 mmol/L (101-111) 03/18/23 05:55 Carbon Dioxide 34 mmol/L (21-32) H 03/18/23 05:55 Anion Gap 4.0 (6-13) L 03/18/23 05:55 BUN 14 mg/dL (6-20) 03/18/23 05:55 Creatinine 0.5 mg/dL (0.6-1.3) L 03/18/23 05:55 Estimated GFR (MDRD) 125 (>89) 03/18/23 05:55 Glucose 148 mg/dL (74-104) H 03/18/23 05:55 Lactic Acid < 0.2 mmol/L (0.5-2.2) L 03/14/23 14:56 Calcium 8.6 mg/dL (8.5-10.3) 03/18/23 05:55 Phosphorus 3.0 mg/dL (2.5-5.0) 03/15/23 04:47 Magnesium 1.8 mg/dL (1.7-2.3) 03/15/23 04:47 Iron < 10 ug/dL (50-212) L 03/15/23 04:47 TIBC 477 ug/dL (250-450) H 03/15/23 04:47 % Saturation TNP 03/15/23 04:47 Transferrin 341 mg/dL (203-362) 03/15/23 04:47 Total Bilirubin 0.4 mg/dL (0.2-1.0) 03/14/23 14:56 AST 21 IU/L (10-42) 03/14/23 14:56 ALT 12 IU/L (10-60) 03/14/23 14:56 Alkaline Phosphatase 97 IU/L (42-121) 03/14/23 14:56 Total Protein 7.8 g/dL (6.4-8.9) 03/14/23 14:56 Albumin 3.6 g/dL (3.2-5.5) 03/14/23 14:56 Globulin 4.2 g/dL (2.1-4.2) 03/14/23 14:56 Albumin/Globulin Ratio 0.9 (1.0-2.2) L 03/14/23 14:56 Vitamin B12 238 pg/mL (180-914) 03/18/23 05:55 Folate 2.8 ng/mL (5.90 - >24.8) L 03/18/23 05:55 Urine Color YELLOW 03/14/23 16:05 Urine Clarity CLEAR (CLEAR) 03/14/23 16:05 Urine pH 6.0 PH (5.0-7.5) 03/14/23 16:05 Ur Specific [place] <=1.005 (1.002-1.030) 03/14/23 16:05 Urine Protein NEGATIVE mg/dL (NEGATIVE) 03/14/23 16:05 Urine Glucose (UA) NEGATIVE mg/dL (NEGATIVE) 03/14/23 16:05 Urine Ketones NEGATIVE mg/dL (NEGATIVE) 03/14/23 16:05 Urine Occult Blood NEGATIVE (NEGATIVE) 03/14/23 16:05 Urine Nitrite NEGATIVE (NEGATIVE) 03/14/23 16:05 Urine Bilirubin NEGATIVE (NEGATIVE) 03/14/23 16:05 Urine Urobilinogen 1 (NORMAL) E.U./dL (NORMAL) 03/14/23 16:05 Ur Leukocyte Esterase NEGATIVE (NEGATIVE) 03/14/23 16:05 Urine RBC None Seen /HPF (0-5) 03/14/23 16:05 Urine WBC 0-3 /HPF (0-5) 03/14/23 16:05 Ur Squamous Epith Cells FEW Squamous (<= Few) 03/14/23 16:05 Urine Bacteria None Seen /HPF (None Seen) 03/14/23 16:05 Urine Culture Comments NOT INDICATED 03/14/23 16:05 Nasal Adenovirus (PCR) NOT DETECTED 03/14/23 14:56 Nasal B. parapertussis DNA (PCR) NOT DETECTED 03/14/23 14:56 Nasal Coronavir 229E PCR NOT DETECTED 03/14/23 14:56 Nasal Coronavir HKU1 PCR NOT DETECTED 03/14/23 14:56 Nasal Coronavir NL63 PCR NOT DETECTED 03/14/23 14:56 Nasal Coronavir OC43 PCR NOT DETECTED 03/14/23 14:56 Nasal Enterovir/Rhinovir PCR NOT DETECTED 03/14/23 14:56 Nasal Influ A H1 2009 PCR DETECTED A 03/14/23 14:56 Nasal Influenza B PCR NOT DETECTED 03/14/23 14:56 Nasal Parainfluen 1 PCR NOT DETECTED 03/14/23 14:56 Nasal Parainfluen 2 PCR NOT DETECTED 03/14/23 14:56 Nasal Parainfluen 3 PCR NOT DETECTED 03/14/23 14:56 Nasal Parainfluen 4 PCR NOT DETECTED 03/14/23 14:56 Nasal RSV (PCR) NOT DETECTED 03/14/23 14:56 Nasal B.pertussis DNA PCR NOT DETECTED 03/14/23 14:56 Nasal C.pneumoniae (PCR) NOT DETECTED 03/14/23 14:56 Brandon Human Metapneumo PCR NOT DETECTED 03/14/23 14:56 Nasal M.pneumoniae (PCR) NOT DETECTED 03/14/23 14:56 Nasal SARS-CoV-2 (PCR) NOT DETECTED 03/14/23 14:56 Sepsis Event Note (H) - Evaluation Current Stage of Sepsis: Sepsis Possible source of Sepsis: positive: Pulmonary - Sepsis Criteria Sepsis Criteria: Recorded Heart Rate greater than 90 bpm, Recorded Respiratory Rate greater than 20, Respiratory: Increasing oxygen requirements ABX Reporting Has patient been on IV antibiotics over the past 48 hours?: No Current Medications - Current Medications Current Medications: Active Medications Albuterol/Ipratropium (Ipratropium/Albuterol 3 Ml Neb) 3 ml INH Q4HR PRN PRN Reason: Wheezing Albuterol/Ipratropium (Ipratropium/Albuterol 3 Ml Neb) 3 ml INH RTQID [facility] Last Admin: 03/18/23 20:21 Dose: 3 ml Budesonide (Budesonide 0.5 Mg/2 Ml Neb) 0.5 mg INH RTBID [facility] Last Admin: 03/18/23 20:21 Dose: 0.5 mg Enoxaparin Sodium (Enoxaparin 40 Mg/0.4 Ml Syringe) 40 mg SUBQ DAILY [facility] Last Admin: 03/18/23 08:11 Dose: 40 mg Ferrous Sulfate (Ferrous Sulfate 325 Mg Tablet) 325 mg PO DAILYWM [facility] Last Admin: 03/18/23 08:11 Dose: 325 mg Guaifenesin (Guaifenesin 600 Mg Tablet) 600 mg PO BID [facility] Last Admin: 03/18/23 21:22 Dose: 600 mg Ibuprofen (Ibuprofen 600 Mg Tablet) 600 mg PO Q6HR PRN PRN Reason: Mild Pain or Fever>38C(100.4F) Last Admin: 03/16/23 05:04 Dose: 600 mg Methylprednisolone (Methylprednisolone Succinate 40 Mg/Ml Vial) 80 mg IVP TID [facility] Last Admin: 03/18/23 21:22 Dose: 80 mg Montelukast Sodium (Montelukast 10 Mg Tablet) 10 mg PO QPM [facility] Last Admin: 03/18/23 21:22 Dose: 10 mg Ondansetron HCl (Ondansetron 4 Mg/2 Ml Vial) 4 mg IVP Q6HR PRN PRN Reason: Nausea / Vomiting Oseltamivir Phosphate (Oseltamivir 75 Mg Capsule) 75 mg PO BID [facility] Stop: 03/19/23 09:01 Last Admin: 03/18/23 21:22 Dose: 75 mg Multivit/Folic Acid/Iron ( Vitamin Tablet) 1 tab PO DAILYWM [facility] Last Admin: 03/18/23 17:36 Dose: 1 tab Sodium Chloride (Sodium Chloride Flush 0.9% 10 Ml Syringe) 10 ml IVP PRN PRN PRN Reason: NEEDED PER PROVIDER ORDERS Sodium Chloride (Sodium Chloride Flush 0.9% 10 Ml Syringe) 10 ml IVP 0100,0900,1700 [facility] Last Admin: 03/18/23 17:36 Dose: 10 ml Zolpidem Tartrate (Zolpidem 5 Mg Tablet) 5 mg PO QPM PRN PRN Reason: Insomnia
[2023-03-19 05:48] LABS: CALCIUM 8.7 mg/dL (8.5-10.3); CREATININE 0.5 mg/dL (0.6-1.3); POTASSIUM 3.8 mmol/L (3.5-4.5)
--- NOTE | 2023-03-19 18:22 | PROVIDER PROGRESS NOTE ---
Assessment/Plan - Problem List (1) Acute respiratory failure with hypoxia Assessment/Plan: Patient does not use oxygen at home. Cause of her hypoxia appears to be her COPD exacerbation and viral upper resp iratory infection Plan: Give supplemental O2 with target O2 sat 88% and above.She continues to require 5 L/min by nasal cannula to maintain her oxygen saturation greater than 90%. Continue IV corticosteroids and bronchodilators. She continue to qualify for inpatient stay. (2) COPD exacerbation Conclusion/Plan: Plan: Continue IV steroids and bronchodilators. (3) Influenza A Conclusion/Plan: Plan: Continue with respiratory/droplet isolation Continue with Tamiflu for a 5-day course (4) Iron deficiency anemia Conclusion/Plan: Patient received 1 dose of IV iron andContinue to monitor CBC intermittently. (5) Sepsis Conclusion/Plan: RESOLVED - Current Meds Current Meds: Current Medications Generic Name Dose Route Start Last Admin Trade Name Freq PRN Reason Stop Dose Admin Albuterol/Ipratropium 3 ml 03/14/23 19:00 03/19/23 17:56 Ipratropium/Albuterol 3 Ml Neb INH 3 ml RTQID TOMÁS Administration Budesonide 0.5 mg 03/14/23 19:00 03/19/23 17:56 Budesonide 0.5 Mg/2 Ml Neb INH 0.5 mg RTBID TOMÁS Administration Enoxaparin Sodium 40 mg 03/15/23 09:00 03/19/23 08:18 Enoxaparin 40 Mg/0.4 Ml Syringe SUBQ 40 mg DAILY TOM[facility]S Administration Ferrous Sulfate 325 mg 03/17/23 08:00 03/19/23 08:18 Ferrous Sulfate 325 Mg Tablet PO 325 mg DAILYWM [facility] Administration Guaifenesin 600 mg 03/14/23 21:00 03/19/23 08:18 Guaifenesin 600 Mg Tablet PO 600 mg BID TOM[facility]S Administration Ibuprofen 600 mg 03/14/23 18:38 03/16/23 05:04 Ibuprofen 600 Mg Tablet PO 600 mg Q6HR PRN Administration Mild Pain or Fever>38C(100.4F) Methylprednisolone 80 mg 03/14/23 22:00 03/19/23 14:13 Methylprednisolone Succinate 40 Mg/Ml Vial IVP 80 mg TID TOM[facility]S Administration Montelukast Sodium 10 mg 03/14/23 21:00 03/18/23 21:22 Montelukast 10 Mg Tablet PO 10 mg QPM TOM[facility] Administration Multivit/Folic Acid/Iron 1 tab 03/18/23 17:00 03/19/23 08:17 Vitamin Tablet PO 1 tab DAILYWM [facility] Administration Sodium Chloride 10 ml 03/15/23 01:00 03/19/23 14:13 Sodium Chloride Flush 0.9% 10 Ml Syringe IVP 10 ml 0100,0900,1700 TOM[facility] Administration - Lab Result Fish Bone Diagrams: 03/22/23 05:14 03/22/23 05:14 Subjective - Subjective Patient Reports: Other (Alert. She continues to require an oxygen flow rate of 5 L/min by nasal cannula. She has no other specific complaints at this time.) Objective Vital Signs: Vital Signs - 24 hr 03/18/23 03/18/23 03/19/23 20:20 23:43 07:19 Temperature 36.8 C Heart Rate 72 87 Heart Rate [ 73 Brachial] Respiratory 20 16 16 Rate Blood Pressure [Left Brachial artery] Blood Pressure 126/66 [Right Brachial artery] O2 Saturation 88 L If not protocol 4 5 5 : Oxygen Flow, liters/minute 03/19/23 03/19/23 03/19/23 11:26 14:00 14:49 Temperature 36.5 C Heart Rate 69 88 Heart Rate [ 75 Brachial] Respiratory 17 18 19 Rate Blood Pressure 135/75 H [Left Brachial artery] Blood Pressure [Right Brachial artery] O2 Saturation 90 L If not protocol 5 5 5 : Oxygen Flow, liters/minute 03/19/23 03/19/23 17:34 17:56 Temperature 36.9 C Heart Rate 79 Heart Rate [ 78 Brachial] Respiratory 16 16 Rate Blood Pressure 134/72 H [Left Brachial artery] Blood Pressure [Right Brachial artery] O2 Saturation 92 If not protocol 3 2 : Oxygen Flow, liters/minute Oxygen O2 Source Nasal cannula Oxygen Flow Rate 5 I&O (Last 24 Hrs): Intake and Output Totals x24h 03/17/23 03/18/23 03/19/23 23:59 23:59 23:59 Intake Total 1620 1400 1080 Balance 1620 1400 1080 General: Alert, Oriented x3, No acute distress HEENT: Atraumatic, PERRLA Neck: Supple, No JVD, No thyromegaly Neuro: Alert, Non Focal Cardiovascular: Other (Positive S1-S2 no EXTR heart sounds.) Respiratory: Other (Good air exchange in all lung ortez no wheezing no crackles.) Abdomen: Normal bowel sounds, Soft, No tenderness Extremities: No cyanosis, No edema Skin: No rashes - Results Results: Laboratory Results WBC 9.1 x10^3/uL (4.8-10.8) 03/18/23 05:55 RBC 4.02 10^6/uL (4.20-5.40) L 03/18/23 05:55 Hgb 8.3 g/dL (12.0-16.0) L 03/18/23 05:55 Hct 33.0 % (37.0-47.0) L 03/18/23 05:55 MCV 82.1 fL (81.0-99.0) 03/18/23 05:55 MCH 20.6 pg (27.0-31.0) L 03/18/23 05:55 MCHC 25.2 g/dL (32.0-36.0) L 03/18/23 05:55 RDW 20.6 % (12.0-15.0) H 03/18/23 05:55 Plt Count 377 10^3/uL (130-450) 03/18/23 05:55 MPV 9.5 fL (7.9-10.8) 03/18/23 05:55 Neut # (Auto) 8.3 10^3/uL (1.5-6.6) H 03/18/23 05:55 Lymph # (Auto) 0.4 10^3/uL (1.5-3.5) L 03/18/23 05:55 [place] # (Auto) 0.3 10^3/uL (0.0-1.0) 03/18/23 05:55 Eos # (Auto) 0.0 10^3/uL (0.0-0.7) 03/18/23 05:55 Baso # (Auto) 0.0 10^3/uL (0.0-0.1) 03/18/23 05:55 Absolute Nucleated RBC 0.00 x10^3/uL 03/18/23 05:55 Nucleated RBC % 0.0 /100WBC 03/18/23 05:55 Manual Slide Review Indicated 03/18/23 05:55 Platelet Estimate NORMAL (130-450,000) (NORMAL) 03/18/23 05:55 Platelet Morphology NORMAL APPEARANCE (NORMAL) 03/17/23 05:20 RBC Morph Micro Appear 1+ ANISOCYTOSIS (NORMAL) 1+ HYPOCHROMASIA (NORMAL) 1+ POLYCHROMASIA (NORMAL) 1+ OVALOCYTES (NORMAL) 03/18/23 05:55 RBC Morph Micro Appear 1+ ANISOCYTOSIS (NORMAL) 1+ HYPOCHROMASIA (NORMAL) 1+ POLYCHROMASIA (NORMAL) 1+ OVALOCYTES (NORMAL) 03/18/23 05:55 RBC Morph Micro Appear 1+ ANISOCYTOSIS (NORMAL) 1+ HYPOCHROMASIA (NORMAL) 1+ POLYCHROMASIA (NORMAL) 1+ OVALOCYTES (NORMAL) 03/18/23 05:55 RBC Morph Micro Appear 1+ ANISOCYTOSIS (NORMAL) 1+ HYPOCHROMASIA (NORMAL) 1+ POLYCHROMASIA (NORMAL) 1+ OVALOCYTES (NORMAL) 03/18/23 05:55 Sodium 139 mmol/L (135-145) 03/19/23 05:05 Potassium 3.8 mmol/L (3.5-4.5) 03/19/23 05:05 Chloride 101 mmol/L (101-111) 03/19/23 05:05 Carbon Dioxide 36 mmol/L (21-32) H 03/19/23 05:05 Anion Gap 2.0 (6-13) L 03/19/23 05:05 BUN 15 mg/dL (6-20) 03/19/23 05:05 Creatinine 0.5 mg/dL (0.6-1.3) L 03/19/23 05:05 Estimated GFR (MDRD) 125 (>89) 03/19/23 05:05 Glucose 146 mg/dL (74-104) H 03/19/23 05:05 Lactic Acid < 0.2 mmol/L (0.5-2.2) L 03/14/23 14:56 Calcium 8.7 mg/dL (8.5-10.3) 03/19/23 05:05 Phosphorus 3.0 mg/dL (2.5-5.0) 03/15/23 04:47 Magnesium 1.8 mg/dL (1.7-2.3) 03/15/23 04:47 Iron < 10 ug/dL (50-212) L 03/15/23 04:47 TIBC 477 ug/dL (250-450) H 03/15/23 04:47 % Saturation TNP 03/15/23 04:47 Transferrin 341 mg/dL (203-362) 03/15/23 04:47 Total Bilirubin 0.4 mg/dL (0.2-1.0) 03/14/23 14:56 AST 21 IU/L (10-42) 03/14/23 14:56 ALT 12 IU/L (10-60) 03/14/23 14:56 Alkaline Phosphatase 97 IU/L (42-121) 03/14/23 14:56 Total Protein 7.8 g/dL (6.4-8.9) 03/14/23 14:56 Albumin 3.6 g/dL (3.2-5.5) 03/14/23 14:56 Globulin 4.2 g/dL (2.1-4.2) 03/14/23 14:56 Albumin/Globulin Ratio 0.9 (1.0-2.2) L 03/14/23 14:56 Vitamin B12 238 pg/mL (180-914) 03/18/23 05:55 Folate 2.8 ng/mL (5.90 - >24.8) L 03/18/23 05:55 Urine Color YELLOW 03/14/23 16:05 Urine Clarity CLEAR (CLEAR) 03/14/23 16:05 Urine pH 6.0 PH (5.0-7.5) 03/14/23 16:05 Ur Specific [place] <=1.005 (1.002-1.030) 03/14/23 16:05 Urine Protein NEGATIVE mg/dL (NEGATIVE) 03/14/23 16:05 Urine Glucose (UA) NEGATIVE mg/dL (NEGATIVE) 03/14/23 16:05 Urine Ketones NEGATIVE mg/dL (NEGATIVE) 03/14/23 16:05 Urine Occult Blood NEGATIVE (NEGATIVE) 03/14/23 16:05 Urine Nitrite NEGATIVE (NEGATIVE) 03/14/23 16:05 Urine Bilirubin NEGATIVE (NEGATIVE) 03/14/23 16:05 Urine Urobilinogen 1 (NORMAL) E.U./dL (NORMAL) 03/14/23 16:05 Ur Leukocyte Esterase NEGATIVE (NEGATIVE) 03/14/23 16:05 Urine RBC None Seen /HPF (0-5) 03/14/23 16:05 Urine WBC 0-3 /HPF (0-5) 03/14/23 16:05 Ur Squamous Epith Cells FEW Squamous (<= Few) 03/14/23 16:05 Urine Bacteria None Seen /HPF (None Seen) 03/14/23 16:05 Urine Culture Comments NOT INDICATED 03/14/23 16:05 Nasal Adenovirus (PCR) NOT DETECTED 03/14/23 14:56 Nasal B. parapertussis DNA (PCR) NOT DETECTED 03/14/23 14:56 Nasal Coronavir 229E PCR NOT DETECTED 03/14/23 14:56 Nasal Coronavir HKU1 PCR NOT DETECTED 03/14/23 14:56 Nasal Coronavir NL63 PCR NOT DETECTED 03/14/23 14:56 Nasal Coronavir OC43 PCR NOT DETECTED 03/14/23 14:56 Nasal Enterovir/Rhinovir PCR NOT DETECTED 03/14/23 14:56 Nasal Influ A H1 2009 PCR DETECTED A 03/14/23 14:56 Nasal Influenza B PCR NOT DETECTED 03/14/23 14:56 Nasal Parainfluen 1 PCR NOT DETECTED 03/14/23 14:56 Nasal Parainfluen 2 PCR NOT DETECTED 03/14/23 14:56 Nasal Parainfluen 3 PCR NOT DETECTED 03/14/23 14:56 Nasal Parainfluen 4 PCR NOT DETECTED 03/14/23 14:56 Nasal RSV (PCR) NOT DETECTED 03/14/23 14:56 Nasal B.pertussis DNA PCR NOT DETECTED 03/14/23 14:56 Nasal C.pneumoniae (PCR) NOT DETECTED 03/14/23 14:56 Brandon Human Metapneumo PCR NOT DETECTED 03/14/23 14:56 Nasal M.pneumoniae (PCR) NOT DETECTED 03/14/23 14:56 Nasal SARS-CoV-2 (PCR) NOT DETECTED 03/14/23 14:56 Sepsis Event Note (H) - Evaluation Current Stage of Sepsis: Sepsis Possible source of Sepsis: positive: Pulmonary - Sepsis Criteria Sepsis Criteria: Recorded Heart Rate greater than 90 bpm, Recorded Respiratory Rate greater than 20, Respiratory: Increasing oxygen requirements ABX Reporting Has patient been on IV antibiotics over the past 48 hours?: No Current Medications - Current Medications Current Medications: Active Medications Albuterol/Ipratropium (Ipratropium/Albuterol 3 Ml Neb) 3 ml INH Q4HR PRN PRN Reason: Wheezing Albuterol/Ipratropium (Ipratropium/Albuterol 3 Ml Neb) 3 ml INH RTQID [facility] Last Admin: 03/19/23 17:56 Dose: 3 ml Budesonide (Budesonide 0.5 Mg/2 Ml Neb) 0.5 mg INH RTBID [facility] Last Admin: 03/19/23 17:56 Dose: 0.5 mg Enoxaparin Sodium (Enoxaparin 40 Mg/0.4 Ml Syringe) 40 mg SUBQ DAILY [facility] Last Admin: 03/19/23 08:18 Dose: 40 mg Ferrous Sulfate (Ferrous Sulfate 325 Mg Tablet) 325 mg PO DAILYWM [facility] Last Admin: 03/19/23 08:18 Dose: 325 mg Guaifenesin (Guaifenesin 600 Mg Tablet) 600 mg PO BID [facility] Last Admin: 03/19/23 08:18 Dose: 600 mg Ibuprofen (Ibuprofen 600 Mg Tablet) 600 mg PO Q6HR PRN PRN Reason: Mild Pain or Fever>38C(100.4F) Last Admin: 03/16/23 05:04 Dose: 600 mg Methylprednisolone (Methylprednisolone Succinate 40 Mg/Ml Vial) 80 mg IVP TID [facility] Last Admin: 03/19/23 14:13 Dose: 80 mg Montelukast Sodium (Montelukast 10 Mg Tablet) 10 mg PO QPM [facility] Last Admin: 03/18/23 21:22 Dose: 10 mg Ondansetron HCl (Ondansetron 4 Mg/2 Ml Vial) 4 mg IVP Q6HR PRN PRN Reason: Nausea / Vomiting Multivit/Folic Acid/Iron ( Vitamin Tablet) 1 tab PO DAILYWM [facility] Last Admin: 03/19/23 08:17 Dose: 1 tab Sodium Chloride (Sodium Chloride Flush 0.9% 10 Ml Syringe) 10 ml IVP PRN PRN PRN Reason: NEEDED PER PROVIDER ORDERS Sodium Chloride (Sodium Chloride Flush 0.9% 10 Ml Syringe) 10 ml IVP 0100,0900,1700 [facility] Last Admin: 03/19/23 14:13 Dose: 10 ml Zolpidem Tartrate (Zolpidem 5 Mg Tablet) 5 mg PO QPM PRN PRN Reason: Insomnia
[2023-03-20] MEDS: ZOLPIDEM 5 MG TABLET PO PRN (00:29)
[2023-03-20] MEDS: traMADol 50 MG TABLET PO PRN (00:35)
[2023-03-20] MEDS ORDERED: predniSONE 20 MG TABLET PO SCH (08:00)
[2023-03-20] MEDS: polyethylene glycoL 3350 17 GM PACKET PO SCH (08:30)
[2023-03-20] MEDS: CYANOCOBALAMIN 500 MCG TABLET PO SCH (08:31)
[2023-03-20] MEDS: CHOLECALCIFEROL 25 MCG TABLET PO SCH (09:22)
[2023-03-20] MEDS: FORMOTEROL FUMARATE NEB 20 MCG/2 ML INH SCH (21:12)
--- NOTE | 2023-03-20 21:57 | PROVIDER PROGRESS NOTE ---
Assessment/Plan - Problem List (1) Acute respiratory failure with hypoxia Assessment/Plan: Patient does not use oxygen at home. Cause of her hypoxia appears to be her COPD exacerbation and viral upper re spiratory infection Plan: Give supplemental O2 with target O2 sat 88% and above.She continues to require 5 L/min by nasal cannula to maintain her oxygen saturation greater than 90%. Continue IV corticosteroids and bronchodilators. She continue to qualify for inpatient stay. (2) COPD exacerbation Conclusion/Plan: Plan: Continue IV steroids and bronchodilators. (3) Influenza A Conclusion/Plan: Plan: Continue with respiratory/droplet isolation Completed course of Tamiflu (4) Iron deficiency anemia Conclusion/Plan: Patient received 1 dose of IV iron andContinue to monitor CBC intermittently. (5) Sepsis Conclusion/Plan: RESOLVED - Current Meds Current Meds: Current Medications Generic Name Dose Route Start Last Admin Trade Name Freq PRN Reason Stop Dose Admin Albuterol/Ipratropium 3 ml 03/14/23 19:00 03/20/23 21:12 Ipratropium/Albuterol 3 Ml Neb INH Not Given RTQID TOM[facility]S Budesonide 0.5 mg 03/14/23 19:00 03/20/23 21:12 Budesonide 0.5 Mg/2 Ml Neb INH Not Given RTBID TOMÁS Cholecalciferol 50 mcg 03/20/23 09:00 03/20/23 09:22 Cholecalciferol 25 Mcg Tablet PO 50 mcg DAILY TOM[facility] Administration Cyanocobalamin 500 mcg 03/20/23 09:00 03/20/23 08:31 Cyanocobalamin 500 Mcg Tablet PO 500 mcg DAILY TOM[facility] Administration Enoxaparin Sodium 40 mg 03/15/23 09:00 03/20/23 08:30 Enoxaparin 40 Mg/0.4 Ml Syringe SUBQ 40 mg DAILY [facility]OM[facility] Administration Ferrous Sulfate 325 mg 03/17/23 08:00 03/20/23 08:30 Ferrous Sulfate 325 Mg Tablet PO 325 mg DAILYWM TOM[facility] Administration Formoterol Fumarate 20 mcg 03/20/23 19:00 03/20/23 21:12 Formoterol Fumarate Neb 20 Mcg/2 Ml INH Not Given RTBID TOMÁS Guaifenesin 600 mg 03/14/23 21:00 03/20/23 21:30 Guaifenesin 600 Mg Tablet PO 600 mg BID TOM[facility]S Administration Ibuprofen 600 mg 03/14/23 18:38 03/20/23 16:53 Ibuprofen 600 Mg Tablet PO 600 mg Q6HR PRN Administration Mild Pain or Fever>38C(100.4F) Montelukast Sodium 10 mg 03/14/23 21:00 03/20/23 21:30 Montelukast 10 Mg Tablet PO 10 mg QPM TOM[facility]S Administration Polyethylene Glycol 17 gm 03/20/23 09:00 03/20/23 08:30 Polyethylene Glycol 3350 17 Gm Packet PO 17 gm DAILY TOM[facility]S Administration Multivit/Folic Acid/Iron 1 tab 03/18/23 17:00 03/20/23 08:30 Vitamin Tablet PO 1 tab DAILYWM TOM[facility]S Administration Sodium Chloride 10 ml 03/15/23 01:00 03/20/23 21:30 Sodium Chloride Flush 0.9% 10 Ml Syringe IVP 10 ml 0100,0900,1700 TOM[facility] Administration Tramadol HCl 50 mg 03/19/23 23:47 03/20/23 21:33 Tramadol 50 Mg Tablet PO 50 mg Q4HR PRN Administration Moderate Pain (Level 4-6) Zolpidem Tartrate 5 mg 03/14/23 18:21 03/20/23 21:34 Zolpidem 5 Mg Tablet PO 5 mg QPM PRN Administration Insomnia - Lab Result Fish Bone Diagrams: 03/22/23 05:14 03/22/23 05:14 - Additional Planning My Orders: My Active Orders 03/20/23 07:56 Resp Teach Nebulizer/MDI [RC] .ONCE 03/20/23 09:00 Cholecalciferol [Vitamin D3] 50 mcg PO DAILY Cyanocobalamin [Vitamin B-12] 500 mcg PO DAILY polyethylene glycoL 3350 [Miralax] 17 gm PO DAILY 03/20/23 19:00 Formoterol Fumarate [Perforomist] 20 mcg INH RTBID 03/21/23 08:00 predniSONE [Deltasone] 40 mg PO DAILYWM Subjective - Subjective Patient Reports: Other (Patient complaining of headache.She reports she intermittently has migraine headaches.Breathing is not significantly changed.) Objective Vital Signs: Vital Signs - 24 hr 03/20/23 03/20/23 03/20/23 00:26 06:25 06:52 Temperature 36.8 C Heart Rate 63 Heart Rate [ 74 Brachial] Respiratory 18 18 Rate Blood Pressure 160/90 H 155/85 H [Left Brachial artery] O2 Saturation 91 L 93 If not protocol 5 2 5 : Oxygen Flow, liters/minute 03/20/23 03/20/23 03/20/23 08:38 09:22 15:07 Temperature 36.9 C Heart Rate 89 Heart Rate [ 70 70 Brachial] Respiratory 18 17 Rate Blood Pressure 178/91 H 146/87 H [Left Brachial artery] O2 Saturation 93 If not protocol 5 5 : Oxygen Flow, liters/minute 03/20/23 03/20/23 03/20/23 16:11 17:00 17:10 Temperature 36.2 C L Heart Rate Heart Rate [ 78 Brachial] Respiratory 18 12 14 Rate Blood Pressure 146/78 H [Left Brachial artery] O2 Saturation 88 L 81 L 89 L If not protocol 5 5 15 : Oxygen Flow, liters/minute 03/20/23 03/20/23 03/20/23 17:30 17:45 18:00 Temperature Heart Rate Heart Rate [ Brachial] Respiratory 16 16 16 Rate Blood Pressure [Left Brachial artery] O2 Saturation 97 94 95 If not protocol 10 10 6 : Oxygen Flow, liters/minute 03/20/23 03/20/23 18:30 21:25 Temperature Heart Rate Heart Rate [ Brachial] Respiratory 16 Rate Blood Pressure [Left Brachial artery] O2 Saturation 94 If not protocol 5 4 : Oxygen Flow, liters/minute Oxygen O2 Source Nasal cannula Oxygen Flow Rate 5 I&O (Last 24 Hrs): Intake and Output Totals x24h 03/18/23 03/19/23 03/20/23 23:59 23:59 23:59 Intake Total 1400 1480 820 Balance 1400 1480 820 General: Alert, No acute distress HEENT: Atraumatic, PERRLA Neck: Supple, No JVD, No thyromegaly Neuro: Alert, Non Focal Cardiovascular: Other (Positive S1-S2 no extra heart sounds) Respiratory: Other (Fair air exchange in all lung ortez no wheezing no crackles) Abdomen: Normal bowel sounds, No tenderness Extremities: No cyanosis, No edema Skin: No rashes - Results Results: Laboratory Results WBC 9.1 x10^3/uL (4.8-10.8) 03/18/23 05:55 RBC 4.02 10^6/uL (4.20-5.40) L 03/18/23 05:55 Hgb 8.3 g/dL (12.0-16.0) L 03/18/23 05:55 Hct 33.0 % (37.0-47.0) L 03/18/23 05:55 MCV 82.1 fL (81.0-99.0) 03/18/23 05:55 MCH 20.6 pg (27.0-31.0) L 03/18/23 05:55 MCHC 25.2 g/dL (32.0-36.0) L 03/18/23 05:55 RDW 20.6 % (12.0-15.0) H 03/18/23 05:55 Plt Count 377 10^3/uL (130-450) 03/18/23 05:55 MPV 9.5 fL (7.9-10.8) 03/18/23 05:55 Neut # (Auto) 8.3 10^3/uL (1.5-6.6) H 03/18/23 05:55 Lymph # (Auto) 0.4 10^3/uL (1.5-3.5) L 03/18/23 05:55 [place] # (Auto) 0.3 10^3/uL (0.0-1.0) 03/18/23 05:55 Eos # (Auto) 0.0 10^3/uL (0.0-0.7) 03/18/23 05:55 Baso # (Auto) 0.0 10^3/uL (0.0-0.1) 03/18/23 05:55 Absolute Nucleated RBC 0.00 x10^3/uL 03/18/23 05:55 Nucleated RBC % 0.0 /100WBC 03/18/23 05:55 Manual Slide Review Indicated 03/18/23 05:55 Platelet Estimate NORMAL (130-450,000) (NORMAL) 03/18/23 05:55 Platelet Morphology NORMAL APPEARANCE (NORMAL) 03/17/23 05:20 RBC Morph Micro Appear 1+ ANISOCYTOSIS (NORMAL) 1+ HYPOCHROMASIA (NORMAL) 1+ POLYCHROMASIA (NORMAL) 1+ OVALOCYTES (NORMAL) 03/18/23 05:55 RBC Morph Micro Appear 1+ ANISOCYTOSIS (NORMAL) 1+ HYPOCHROMASIA (NORMAL) 1+ POLYCHROMASIA (NORMAL) 1+ OVALOCYTES (NORMAL) 03/18/23 05:55 RBC Morph Micro Appear 1+ ANISOCYTOSIS (NORMAL) 1+ HYPOCHROMASIA (NORMAL) 1+ POLYCHROMASIA (NORMAL) 1+ OVALOCYTES (NORMAL) 03/18/23 05:55 RBC Morph Micro Appear 1+ ANISOCYTOSIS (NORMAL) 1+ HYPOCHROMASIA (NORMAL) 1+ POLYCHROMASIA (NORMAL) 1+ OVALOCYTES (NORMAL) 03/18/23 05:55 Sodium 139 mmol/L (135-145) 03/19/23 05:05 Potassium 3.8 mmol/L (3.5-4.5) 03/19/23 05:05 Chloride 101 mmol/L (101-111) 03/19/23 05:05 Carbon Dioxide 36 mmol/L (21-32) H 03/19/23 05:05 Anion Gap 2.0 (6-13) L 03/19/23 05:05 BUN 15 mg/dL (6-20) 03/19/23 05:05 Creatinine 0.5 mg/dL (0.6-1.3) L 03/19/23 05:05 Estimated GFR (MDRD) 125 (>89) 03/19/23 05:05 Glucose 146 mg/dL (74-104) H 03/19/23 05:05 Lactic Acid < 0.2 mmol/L (0.5-2.2) L 03/14/23 14:56 Calcium 8.7 mg/dL (8.5-10.3) 03/19/23 05:05 Phosphorus 3.0 mg/dL (2.5-5.0) 03/15/23 04:47 Magnesium 1.8 mg/dL (1.7-2.3) 03/15/23 04:47 Iron < 10 ug/dL (50-212) L 03/15/23 04:47 TIBC 477 ug/dL (250-450) H 03/15/23 04:47 % Saturation TNP 03/15/23 04:47 Transferrin 341 mg/dL (203-362) 03/15/23 04:47 Total Bilirubin 0.4 mg/dL (0.2-1.0) 03/14/23 14:56 AST 21 IU/L (10-42) 03/14/23 14:56 ALT 12 IU/L (10-60) 03/14/23 14:56 Alkaline Phosphatase 97 IU/L (42-121) 03/14/23 14:56 Total Protein 7.8 g/dL (6.4-8.9) 03/14/23 14:56 Albumin 3.6 g/dL (3.2-5.5) 03/14/23 14:56 Globulin 4.2 g/dL (2.1-4.2) 03/14/23 14:56 Albumin/Globulin Ratio 0.9 (1.0-2.2) L 03/14/23 14:56 Vitamin B12 238 pg/mL (180-914) 03/18/23 05:55 Folate 2.8 ng/mL (5.90 - >24.8) L 03/18/23 05:55 Urine Color YELLOW 03/14/23 16:05 Urine Clarity CLEAR (CLEAR) 03/14/23 16:05 Urine pH 6.0 PH (5.0-7.5) 03/14/23 16:05 Ur Specific [place] <=1.005 (1.002-1.030) 03/14/23 16:05 Urine Protein NEGATIVE mg/dL (NEGATIVE) 03/14/23 16:05 Urine Glucose (UA) NEGATIVE mg/dL (NEGATIVE) 03/14/23 16:05 Urine Ketones NEGATIVE mg/dL (NEGATIVE) 03/14/23 16:05 Urine Occult Blood NEGATIVE (NEGATIVE) 03/14/23 16:05 Urine Nitrite NEGATIVE (NEGATIVE) 03/14/23 16:05 Urine Bilirubin NEGATIVE (NEGATIVE) 03/14/23 16:05 Urine Urobilinogen 1 (NORMAL) E.U./dL (NORMAL) 03/14/23 16:05 Ur Leukocyte Esterase NEGATIVE (NEGATIVE) 03/14/23 16:05 Urine RBC None Seen /HPF (0-5) 03/14/23 16:05 Urine WBC 0-3 /HPF (0-5) 03/14/23 16:05 Ur Squamous Epith Cells FEW Squamous (<= Few) 03/14/23 16:05 Urine Bacteria None Seen /HPF (None Seen) 03/14/23 16:05 Urine Culture Comments NOT INDICATED 03/14/23 16:05 Nasal Adenovirus (PCR) NOT DETECTED 03/14/23 14:56 Nasal B. parapertussis DNA (PCR) NOT DETECTED 03/14/23 14:56 Nasal Coronavir 229E PCR NOT DETECTED 03/14/23 14:56 Nasal Coronavir HKU1 PCR NOT DETECTED 03/14/23 14:56 Nasal Coronavir NL63 PCR NOT DETECTED 03/14/23 14:56 Nasal Coronavir OC43 PCR NOT DETECTED 03/14/23 14:56 Nasal Enterovir/Rhinovir PCR NOT DETECTED 03/14/23 14:56 Nasal Influ A H1 2009 PCR DETECTED A 03/14/23 14:56 Nasal Influenza B PCR NOT DETECTED 03/14/23 14:56 Nasal Parainfluen 1 PCR NOT DETECTED 03/14/23 14:56 Nasal Parainfluen 2 PCR NOT DETECTED 03/14/23 14:56 Nasal Parainfluen 3 PCR NOT DETECTED 03/14/23 14:56 Nasal Parainfluen 4 PCR NOT DETECTED 03/14/23 14:56 Nasal RSV (PCR) NOT DETECTED 03/14/23 14:56 Nasal B.pertussis DNA PCR NOT DETECTED 03/14/23 14:56 Nasal C.pneumoniae (PCR) NOT DETECTED 03/14/23 14:56 Brandon Human Metapneumo PCR NOT DETECTED 03/14/23 14:56 Nasal M.pneumoniae (PCR) NOT DETECTED 03/14/23 14:56 Nasal SARS-CoV-2 (PCR) NOT DETECTED 03/14/23 14:56 Sepsis Event Note (H) - Evaluation Current Stage of Sepsis: Sepsis Possible source of Sepsis: positive: Pulmonary - Sepsis Criteria Sepsis Criteria: Recorded Heart Rate greater than 90 bpm, Recorded Respiratory Rate greater than 20, Respiratory: Increasing oxygen requirements ABX Reporting Has patient been on IV antibiotics over the past 48 hours?: No Current Medications - Current Medications Current Medications: Active Medications Albuterol/Ipratropium (Ipratropium/Albuterol 3 Ml Neb) 3 ml INH Q4HR PRN PRN Reason: Wheezing Albuterol/Ipratropium (Ipratropium/Albuterol 3 Ml Neb) 3 ml INH RTQID [facility] Last Admin: 03/20/23 21:12 Dose: Not Given Budesonide (Budesonide 0.5 Mg/2 Ml Neb) 0.5 mg INH RTBID [facility] Last Admin: 03/20/23 21:12 Dose: Not Given Cholecalciferol (Cholecalciferol 25 Mcg Tablet) 50 mcg PO DAILY [facility] Last Admin: 03/20/23 09:22 Dose: 50 mcg Cyanocobalamin (Cyanocobalamin 500 Mcg Tablet) 500 mcg PO DAILY [facility] Last Admin: 03/20/23 08:31 Dose: 500 mcg Enoxaparin Sodium (Enoxaparin 40 Mg/0.4 Ml Syringe) 40 mg SUBQ DAILY [facility] Last Admin: 03/20/23 08:30 Dose: 40 mg Ferrous Sulfate (Ferrous Sulfate 325 Mg Tablet) 325 mg PO DAILYWM [facility] Last Admin: 03/20/23 08:30 Dose: 325 mg Formoterol Fumarate (Formoterol Fumarate Neb 20 Mcg/2 Ml) 20 mcg INH RTBID [facility] Last Admin: 03/20/23 21:12 Dose: Not Given Guaifenesin (Guaifenesin 600 Mg Tablet) 600 mg PO BID [facility] Last Admin: 03/20/23 21:30 Dose: 600 mg Ibuprofen (Ibuprofen 600 Mg Tablet) 600 mg PO Q6HR PRN PRN Reason: Mild Pain or Fever>38C(100.4F) Last Admin: 03/20/23 16:53 Dose: 600 mg Montelukast Sodium (Montelukast 10 Mg Tablet) 10 mg PO QPM [facility] Last Admin: 03/20/23 21:30 Dose: 10 mg Ondansetron HCl (Ondansetron 4 Mg/2 Ml Vial) 4 mg IVP Q6HR PRN PRN Reason: Nausea / Vomiting Polyethylene Glycol (Polyethylene Glycol 3350 17 Gm Packet) 17 gm PO DAILY [facility] Last Admin: 03/20/23 08:30 Dose: 17 gm Prednisone (Prednisone 20 Mg Tablet) [facility] [place] Multivit/Folic Acid/Iron ( Vitamin Tablet) 1 tab PO DAILYWM [facility] Last Admin: 03/20/23 08:30 Dose: 1 tab Sodium Chloride (Sodium Chloride Flush 0.9% 10 Ml Syringe) 10 ml IVP PRN PRN PRN Reason: NEEDED PER PROVIDER ORDERS Sodium Chloride (Sodium Chloride Flush 0.9% 10 Ml Syringe) 10 ml IVP 0100,0900,1700 [facility] Last Admin: 03/20/23 21:30 Dose: 10 ml Tramadol HCl (Tramadol 50 Mg Tablet) 50 mg PO Q4HR PRN PRN Reason: Moderate Pain (Level 4-6) Last Admin: 03/20/23 21:33 Dose: 50 mg Zolpidem Tartrate (Zolpidem 5 Mg Tablet) 5 mg PO QPM PRN PRN Reason: Insomnia Last Admin: 03/20/23 21:34 Dose: 5 mg
--- NOTE | 2023-03-20 23:13 | PROVIDER PROGRESS NOTE ---
Jewel Bearing Maker Note - Jewel Bearing Maker Note Jewel Bearing Maker Note: RN paged "Patient's O2 saturation keeps dropping below 88%. Patient has been on 5L NC but is now on 10 LPM simple mask. Lung sounds are diminished in bases." patient admitted for acute hypoxemic resp failure 2/2 COPD exacerbation noted flu positive. noted sputum positive for staph and proteus and flu. recommend bipap to get in front for the worsening hypoxemia and reassess in am recommend prn duoneb as ordered already. since copd + worsening resp status + sputum positive then add ceftriaxone base off sensitivity day team to followup and reassess in am Johanna Person DO Internal Medicine [facility]
[2023-03-20] MEDS: cefTRIAXone 2 GM in SODIUM CHLORIDE 0.9% MINIBAG 100 ML IV SCH (23:42)
[2023-03-21] MEDS: DOCUSATE SODIUM 250 MG CAPSULE PO SCH (08:58)
[2023-03-21] MEDS: predniSONE 20 MG TABLET PO SCH (08:58)
[2023-03-21] MEDS: SENNA 8.6 MG TABLET PO SCH (08:58)
[2023-03-21] MEDS: BISACODYL 10 MG SUPP PR ONE (12:29)
[2023-03-21] MEDS: MAGNESIUM CITRATE 296 ML BOTTLE PO ONE (12:29)
--- NOTE | 2023-03-21 21:21 | PROVIDER PROGRESS NOTE ---
Assessment/Plan - Problem List (1) Acute respiratory failure with hypoxia Assessment/Plan: Patient does not use oxygen at home. Cause of her hypoxia appears to be her COPD exacerbation and viral upper re spiratory infection Plan: Give supplemental O2 with target O2 sat 88% and above. She is now requiring high flow oxygen to maintain her oxygen saturation greater than 88%. 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 It is highly likely that her worsening respiratory status is secondary to methamphetamine abuse. Continue IV corticosteroids and bronchodilators. She continue to qualify for inpatient stay. (2) COPD exacerbation Conclusion/Plan: Plan: Continue IV steroids and bronchodilators. (3) Influenza A Conclusion/Plan: Plan: Continue with respiratory/droplet isolation Completed course of Tamiflu (4) Iron deficiency anemia Conclusion/Plan: Patient received 1 dose of IV iron andContinue to monitor CBC intermittently. (5) Sepsis Conclusion/Plan: RESOLVED - Current Meds Current Meds: Current Medications Generic Name Dose Route Start Last Admin Trade Name Freq PRN Reason Stop Dose Admin Albuterol/Ipratropium 3 ml 03/14/23 19:00 03/21/23 20:20 Ipratropium/Albuterol 3 Ml Neb INH 3 ml RTQID TOMÁS Administration Budesonide 0.5 mg 03/14/23 19:00 03/21/23 20:20 Budesonide 0.5 Mg/2 Ml Neb INH 0.5 mg RTBID TOMÁS Administration Cholecalciferol 50 mcg 03/20/23 09:00 03/21/23 08:57 Cholecalciferol 25 Mcg Tablet PO 50 mcg DAILY TOMÁS Administration Cyanocobalamin 500 mcg 03/20/23 09:00 03/21/23 08:58 Cyanocobalamin 500 Mcg Tablet PO 500 mcg DAILY TOMÁS Administration Docusate Sodium 250 - 500 mg 03/21/23 09:00 03/21/23 08:58 Docusate Sodium 250 Mg Capsule PO 250 mg DAILY TOMÁS Administration Enoxaparin Sodium 40 mg 03/15/23 09:00 03/21/23 08:55 Enoxaparin 40 Mg/0.4 Ml Syringe SUBQ 40 mg DAILY TOMÁS Administration Ferrous Sulfate 325 mg 03/17/23 08:00 03/21/23 08:58 Ferrous Sulfate 325 Mg Tablet PO 325 mg DAILYWM TOM[facility] Administration Formoterol Fumarate 20 mcg 03/20/23 19:00 03/21/23 20:20 Formoterol Fumarate Neb 20 Mcg/2 Ml INH 20 mcg RTBID TOMÁS Administration Guaifenesin 600 mg 03/14/23 21:00 03/21/23 08:58 Guaifenesin 600 Mg Tablet PO 600 mg BID TOMÁS Administration Ceftriaxone Sodium 2 gm/ 100 mls @ 200 mls/hr 03/20/23 23:15 03/21/23 09:40 Sodium Chloride IV Infused DAILY TOMÁS Infusion Ibuprofen 600 mg 03/14/23 18:38 03/21/23 17:06 Ibuprofen 600 Mg Tablet PO 600 mg Q6HR PRN Administration Mild Pain or Fever>38C(100.4F) Montelukast Sodium 10 mg 03/14/23 21:00 03/20/23 21:30 Montelukast 10 Mg Tablet PO 10 mg QPM TOMÁS Administration Polyethylene Glycol 17 gm 03/20/23 09:00 03/21/23 17:59 Polyethylene Glycol 3350 17 Gm Packet PO Not Given DAILY TOMÁS Prednisone 40 mg 03/21/23 08:00 03/21/23 08:58 Prednisone 20 Mg Tablet PO 40 mg DAILYWM TOM[facility]S Administration Multivit/Folic Acid/Iron 1 tab 03/18/23 17:00 03/21/23 08:58 Vitamin Tablet PO 1 tab DAILYWM TOMÁS Administration Senna 8.6 - 17.2 mg 03/21/23 09:00 03/21/23 08:58 Senna 8.6 Mg Tablet PO 8.6 mg DAILY TOMÁS Administration Sodium Chloride 10 ml 03/15/23 01:00 03/21/23 16:14 Sodium Chloride Flush 0.9% 10 Ml Syringe IVP 10 ml 0100,0900,1700 TOM[facility] Administration Tramadol HCl 50 mg 03/19/23 23:47 03/21/23 12:32 Tramadol 50 Mg Tablet PO 50 mg Q4HR PRN Administration Moderate Pain (Level 4-6) Zolpidem Tartrate 5 mg 03/14/23 18:21 03/20/23 21:34 Zolpidem 5 Mg Tablet PO 5 mg QPM PRN Administration Insomnia - Lab Result Fish Bone Diagrams: 03/22/23 05:14 03/22/23 05:14 - Additional Planning My Orders: My Active Orders 03/21/23 08:00 predniSONE [Deltasone] 40 mg PO DAILYWM 03/21/23 09:00 Docusate Sodium 250Mg Capsule [Colace 250Mg Capsule] 250 - 500 mg PO DAILY Senna [Senokot] 8.6 - 17.2 mg PO DAILY 03/21/23 21:16 OLANZapine ODT [ZyPREXA ODT] 5 mg TL DAILY PRN Subjective - Subjective Patient Reports: Other (Patient's hypoxia has worsened overnight. Etiology of worsening hypoxia is unclear.) Objective Vital Signs: Vital Signs - 24 hr 03/20/23 03/20/23 03/20/23 21:25 22:00 23:30 Temperature 36.7 C Heart Rate Heart Rate [ 85 Brachial] Respiratory 18 Rate Blood Pressure 153/85 H [Left Brachial artery] Blood Pressure [Right Brachial artery] O2 Saturation 94 If not protocol 4 5 35 : Oxygen Flow, liters/minute 03/21/23 03/21/23 03/21/23 00:07 02:00 05:55 Temperature 36.4 C L Heart Rate 85 Heart Rate [ 72 Brachial] Respiratory 14 18 Rate Blood Pressure [Left Brachial artery] Blood Pressure 128/76 [Right Brachial artery] O2 Saturation 91 L If not protocol 35 30 30 : Oxygen Flow, liters/minute 03/21/23 03/21/23 03/21/23 06:53 07:45 08:30 Temperature 36.3 C L Heart Rate Heart Rate [ 88 Brachial] Respiratory 18 Rate Blood Pressure [Left Brachial artery] Blood Pressure 156/89 H [Right Brachial artery] O2 Saturation 100 If not protocol 45 45 35 : Oxygen Flow, liters/minute 03/21/23 03/21/23 03/21/23 11:15 15:47 17:05 Temperature 36.4 C L Heart Rate Heart Rate [ 95 Brachial] Respiratory 18 Rate Blood Pressure 159/89 H [Left Brachial artery] Blood Pressure [Right Brachial artery] O2 Saturation 92 85 L If not protocol 30 30 : Oxygen Flow, liters/minute 03/21/23 03/21/23 03/21/23 17:12 20:20 20:24 Temperature Heart Rate 65 Heart Rate [ Brachial] Respiratory 24 Rate Blood Pressure [Left Brachial artery] Blood Pressure [Right Brachial artery] O2 Saturation 98 If not protocol 30 40 30 : Oxygen Flow, liters/minute Oxygen O2 Source HHFNC Oxygen Flow Rate 5 I&O (Last 24 Hrs): Intake and Output Totals x24h 03/19/23 03/20/23 03/21/23 23:59 23:59 23:59 Intake Total 1480 1270 800 Balance 1480 1270 800 General: Alert, Cooperative, No acute distress Neck: No JVD, No thyromegaly Neuro: Alert, Focal Deficits, Non Focal Cardiovascular: Regular rate, Normal S1, Normal S2, No murmurs Respiratory: Other (Fair air exchange in all lung ortez positive expiratory wheezing. No crackles) Abdomen: Normal bowel sounds, Soft, No tenderness Extremities: No cyanosis, No edema Skin: No rashes - Results Results: Laboratory Results WBC 9.1 x10^3/uL (4.8-10.8) 03/18/23 05:55 RBC 4.02 10^6/uL (4.20-5.40) L 03/18/23 05:55 Hgb 8.3 g/dL (12.0-16.0) L 03/18/23 05:55 Hct 33.0 % (37.0-47.0) L 03/18/23 05:55 MCV 82.1 fL (81.0-99.0) 03/18/23 05:55 MCH 20.6 pg (27.0-31.0) L 03/18/23 05:55 MCHC 25.2 g/dL (32.0-36.0) L 03/18/23 05:55 RDW 20.6 % (12.0-15.0) H 03/18/23 05:55 Plt Count 377 10^3/uL (130-450) 03/18/23 05:55 MPV 9.5 fL (7.9-10.8) 03/18/23 05:55 Neut # (Auto) 8.3 10^3/uL (1.5-6.6) H 03/18/23 05:55 Lymph # (Auto) 0.4 10^3/uL (1.5-3.5) L 03/18/23 05:55 [place] # (Auto) 0.3 10^3/uL (0.0-1.0) 03/18/23 05:55 Eos # (Auto) 0.0 10^3/uL (0.0-0.7) 03/18/23 05:55 Baso # (Auto) 0.0 10^3/uL (0.0-0.1) 03/18/23 05:55 Absolute Nucleated RBC 0.00 x10^3/uL 03/18/23 05:55 Nucleated RBC % 0.0 /100WBC 03/18/23 05:55 Manual Slide Review Indicated 03/18/23 05:55 Platelet Estimate NORMAL (130-450,000) (NORMAL) 03/18/23 05:55 Platelet Morphology NORMAL APPEARANCE (NORMAL) 03/17/23 05:20 RBC Morph Micro Appear 1+ ANISOCYTOSIS (NORMAL) 1+ HYPOCHROMASIA (NORMAL) 1+ POLYCHROMASIA (NORMAL) 1+ OVALOCYTES (NORMAL) 03/18/23 05:55 RBC Morph Micro Appear 1+ ANISOCYTOSIS (NORMAL) 1+ HYPOCHROMASIA (NORMAL) 1+ POLYCHROMASIA (NORMAL) 1+ OVALOCYTES (NORMAL) 03/18/23 05:55 RBC Morph Micro Appear 1+ ANISOCYTOSIS (NORMAL) 1+ HYPOCHROMASIA (NORMAL) 1+ POLYCHROMASIA (NORMAL) 1+ OVALOCYTES (NORMAL) 03/18/23 05:55 RBC Morph Micro Appear 1+ ANISOCYTOSIS (NORMAL) 1+ HYPOCHROMASIA (NORMAL) 1+ POLYCHROMASIA (NORMAL) 1+ OVALOCYTES (NORMAL) 03/18/23 05:55 Sodium 139 mmol/L (135-145) 03/19/23 05:05 Potassium 3.8 mmol/L (3.5-4.5) 03/19/23 05:05 Chloride 101 mmol/L (101-111) 03/19/23 05:05 Carbon Dioxide 36 mmol/L (21-32) H 03/19/23 05:05 Anion Gap 2.0 (6-13) L 03/19/23 05:05 BUN 15 mg/dL (6-20) 03/19/23 05:05 Creatinine 0.5 mg/dL (0.6-1.3) L 03/19/23 05:05 Estimated GFR (MDRD) 125 (>89) 03/19/23 05:05 Glucose 146 mg/dL (74-104) H 03/19/23 05:05 Lactic Acid < 0.2 mmol/L (0.5-2.2) L 03/14/23 14:56 Calcium 8.7 mg/dL (8.5-10.3) 03/19/23 05:05 Phosphorus 3.0 mg/dL (2.5-5.0) 03/15/23 04:47 Magnesium 1.8 mg/dL (1.7-2.3) 03/15/23 04:47 Iron < 10 ug/dL (50-212) L 03/15/23 04:47 TIBC 477 ug/dL (250-450) H 03/15/23 04:47 % Saturation TNP 03/15/23 04:47 Transferrin 341 mg/dL (203-362) 03/15/23 04:47 Total Bilirubin 0.4 mg/dL (0.2-1.0) 03/14/23 14:56 AST 21 IU/L (10-42) 03/14/23 14:56 ALT 12 IU/L (10-60) 03/14/23 14:56 Alkaline Phosphatase 97 IU/L (42-121) 03/14/23 14:56 Total Protein 7.8 g/dL (6.4-8.9) 03/14/23 14:56 Albumin 3.6 g/dL (3.2-5.5) 03/14/23 14:56 Globulin 4.2 g/dL (2.1-4.2) 03/14/23 14:56 Albumin/Globulin Ratio 0.9 (1.0-2.2) L 03/14/23 14:56 Vitamin B12 238 pg/mL (180-914) 03/18/23 05:55 Folate 2.8 ng/mL (5.90 - >24.8) L 03/18/23 05:55 Urine Color YELLOW 03/14/23 16:05 Urine Clarity CLEAR (CLEAR) 03/14/23 16:05 Urine pH 6.0 PH (5.0-7.5) 03/14/23 16:05 Ur Specific [place] <=1.005 (1.002-1.030) 03/14/23 16:05 Urine Protein NEGATIVE mg/dL (NEGATIVE) 03/14/23 16:05 Urine Glucose (UA) NEGATIVE mg/dL (NEGATIVE) 03/14/23 16:05 Urine Ketones NEGATIVE mg/dL (NEGATIVE) 03/14/23 16:05 Urine Occult Blood NEGATIVE (NEGATIVE) 03/14/23 16:05 Urine Nitrite NEGATIVE (NEGATIVE) 03/14/23 16:05 Urine Bilirubin NEGATIVE (NEGATIVE) 03/14/23 16:05 Urine Urobilinogen 1 (NORMAL) E.U./dL (NORMAL) 03/14/23 16:05 Ur Leukocyte Esterase NEGATIVE (NEGATIVE) 03/14/23 16:05 Urine RBC None Seen /HPF (0-5) 03/14/23 16:05 Urine WBC 0-3 /HPF (0-5) 03/14/23 16:05 Ur Squamous Epith Cells FEW Squamous (<= Few) 03/14/23 16:05 Urine Bacteria None Seen /HPF (None Seen) 03/14/23 16:05 Urine Culture Comments NOT INDICATED 03/14/23 16:05 Nasal Adenovirus (PCR) NOT DETECTED 03/14/23 14:56 Nasal B. parapertussis DNA (PCR) NOT DETECTED 03/14/23 14:56 Nasal Coronavir 229E PCR NOT DETECTED 03/14/23 14:56 Nasal Coronavir HKU1 PCR NOT DETECTED 03/14/23 14:56 Nasal Coronavir NL63 PCR NOT DETECTED 03/14/23 14:56 Nasal Coronavir OC43 PCR NOT DETECTED 03/14/23 14:56 Nasal Enterovir/Rhinovir PCR NOT DETECTED 03/14/23 14:56 Nasal Influ A H1 2009 PCR DETECTED A 03/14/23 14:56 Nasal Influenza B PCR NOT DETECTED 03/14/23 14:56 Nasal Parainfluen 1 PCR NOT DETECTED 03/14/23 14:56 Nasal Parainfluen 2 PCR NOT DETECTED 03/14/23 14:56 Nasal Parainfluen 3 PCR NOT DETECTED 03/14/23 14:56 Nasal Parainfluen 4 PCR NOT DETECTED 03/14/23 14:56 Nasal RSV (PCR) NOT DETECTED 03/14/23 14:56 Nasal B.pertussis DNA PCR NOT DETECTED 03/14/23 14:56 Nasal C.pneumoniae (PCR) NOT DETECTED 03/14/23 14:56 Brandon Human Metapneumo PCR NOT DETECTED 03/14/23 14:56 Nasal M.pneumoniae (PCR) NOT DETECTED 03/14/23 14:56 Nasal SARS-CoV-2 (PCR) NOT DETECTED 03/14/23 14:56 Sepsis Event Note (H) - Evaluation Current Stage of Sepsis: Sepsis Possible source of Sepsis: positive: Pulmonary - Sepsis Criteria Sepsis Criteria: Recorded Heart Rate greater than 90 bpm, Recorded Respiratory Rate greater than 20, Respiratory: Increasing oxygen requirements ABX Reporting Has patient been on IV antibiotics over the past 48 hours?: No Current Medications - Current Medications Current Medications: Active Medications Albuterol/Ipratropium (Ipratropium/Albuterol 3 Ml Neb) 3 ml INH Q4HR PRN PRN Reason: Wheezing Albuterol/Ipratropium (Ipratropium/Albuterol 3 Ml Neb) 3 ml INH RTQID [facility] Last Admin: 03/21/23 20:20 Dose: 3 ml Budesonide (Budesonide 0.5 Mg/2 Ml Neb) 0.5 mg INH RTBID [facility] Last Admin: 03/21/23 20:20 Dose: 0.5 mg Cholecalciferol (Cholecalciferol 25 Mcg Tablet) 50 mcg PO DAILY [facility] Last Admin: 03/21/23 08:57 Dose: 50 mcg Cyanocobalamin (Cyanocobalamin 500 Mcg Tablet) 500 mcg PO DAILY [facility] Last Admin: 03/21/23 08:58 Dose: 500 mcg Docusate Sodium (Docusate Sodium 250 Mg Capsule) 250 - 500 mg PO DAILY [facility] Last Admin: 03/21/23 08:58 Dose: 250 mg Enoxaparin Sodium (Enoxaparin 40 Mg/0.4 Ml Syringe) 40 mg SUBQ DAILY [facility] Last Admin: 03/21/23 08:55 Dose: 40 mg Ferrous Sulfate (Ferrous Sulfate 325 Mg Tablet) 325 mg PO DAILYWM [facility] Last Admin: 03/21/23 08:58 Dose: 325 mg Formoterol Fumarate (Formoterol Fumarate Neb 20 Mcg/2 Ml) 20 mcg INH RTBID [facility] Last Admin: 03/21/23 20:20 Dose: 20 mcg Guaifenesin (Guaifenesin 600 Mg Tablet) 600 mg PO BID [facility] Last Admin: 03/21/23 08:58 Dose: 600 mg Ceftriaxone Sodium 2 gm/ (Sodium Chloride) 100 mls @ 200 mls/hr IV DAILY [facility] Last Infusion: 03/21/23 09:40 Dose: Infused Ibuprofen (Ibuprofen 600 Mg Tablet) 600 mg PO Q6HR PRN PRN Reason: Mild Pain or Fever>38C(100.4F) Last Admin: 03/21/23 17:06 Dose: 600 mg Montelukast Sodium (Montelukast 10 Mg Tablet) 10 mg PO QPM [facility] Last Admin: 03/20/23 21:30 Dose: 10 mg Olanzapine (Olanzapine Odt 5 Mg Tablet) 5 mg TL DAILY PRN PRN Reason: Nausea / Vomiting Polyethylene Glycol (Polyethylene Glycol 3350 17 Gm Packet) 17 gm PO DAILY [facility] Last Admin: 03/21/23 17:59 Dose: Not Given Prednisone (Prednisone 20 Mg Tablet) 40 mg PO DAILYWM [facility] Last Admin: 03/21/23 08:58 Dose: 40 mg Multivit/Folic Acid/Iron ( Vitamin Tablet) 1 tab PO DAILYWM [facility] Last Admin: 03/21/23 08:58 Dose: 1 tab Senna (Senna 8.6 Mg Tablet) 8.6 - 17.2 mg PO DAILY [facility] Last Admin: 03/21/23 08:58 Dose: 8.6 mg Sodium Chloride (Sodium Chloride Flush 0.9% 10 Ml Syringe) 10 ml IVP PRN PRN PRN Reason: NEEDED PER PROVIDER ORDERS Sodium Chloride (Sodium Chloride Flush 0.9% 10 Ml Syringe) 10 ml IVP 0100,0900,1700 [facility] Last Admin: 03/21/23 16:14 Dose: 10 ml Tramadol HCl (Tramadol 50 Mg Tablet) 50 mg PO Q4HR PRN PRN Reason: Moderate Pain (Level 4-6) Last Admin: 03/21/23 12:32 Dose: 50 mg Zolpidem Tartrate (Zolpidem 5 Mg Tablet) 5 mg PO QPM PRN PRN Reason: Insomnia Last Admin: 03/20/23 21:34 Dose: 5 mg
[2023-03-21] MEDS: OLANZapine ODT 5 MG TABLET TL PRN (21:51)
[2023-03-22 06:08] LABS: BASOPHILS % (AUTO) 0.3 %; EOSINOPHILS # (AUTO) 0.1 10^3/uL (0.0-0.7); EOSINOPHILS % (AUTO) 0.7 %; HGB - HEMOGLOBIN 10.7 g/dL (12.0-16.0); LYMPHOCYTES % (AUTO) 10.9 %; MEAN CORPUSCULAR HEMOGLOBIN 20.6 pg (27.0-31.0); MEAN CORPUSCULAR HGB CONC 26.1 g/dL (32.0-36.0); MEAN CORPUSCULAR VOLUME 78.8 fL (81.0-99.0); MEAN PLATELET VOLUME 8.9 fL (7.9-10.8); MONOCYTES # (AUTO) 0.8 10^3/uL (0.0-1.0); MONOCYTES % (AUTO) 8.2 %; NEUTROPHILS # (AUTO) 6.8 10^3/uL (1.5-6.6); NEUTROPHILS % (AUTO) 74.2 %; NRBC ABSOLUTE COUNT (AUTO) 0.02 x10^3/uL; NUCLEATED RED BLOOD CELLS AUTO 0.2 /100WBC; PLT - PLATELET COUNT 707 10^3/uL (130-450); RED CELL DISTRIBUTION WIDTH 22.5 % (12.0-15.0); WHITE BLOOD COUNT 9.2 x10^3/uL (4.8-10.8)
--- NOTE | 2023-03-22 06:48 | XRAY Report ---
PROCEDURE: Chest 1V INDICATIONS: Change in oxygenation TECHNIQUE: One view of the chest was acquired. COMPARISON: 03/14/2023 FINDINGS: Surgical changes and devices: None. Lungs and pleura: The left costophrenic angle is not seen. There is no dense consolidation or pleura l effusion. Mediastinum: Normal heart size Bones and chest wall: Mild degenerative changes. An indeterminate small soft tissue hyperdensity pro jects over the left axilla, seen previously as well. IMPRESSION: Single view radiograph without acute abnormality. Reviewed by: Misbah Peguero MD on 03/22/2023 6:46 AM PST Approved by: Misbah Peguero MD on 03/22/2023 6:46 AM [facility] Station ID: [id number]
[2023-03-22 06:59] LABS: SLIDE REVIEW? Indicated
[2023-03-22 07:05] LABS: CALCIUM 8.7 mg/dL (8.5-10.3); CREATININE 0.5 mg/dL (0.6-1.3); PHOSPHORUS 3.3 mg/dL (2.5-5.0); POTASSIUM 4.1 mmol/L (3.5-4.5)
[2023-03-22 07:51] LABS: PLATELET ESTIMATE, MANUAL INCREASED (>450,000) (NORMAL); WBC MORPHOLOGY (MULTIPLE) NORMAL APPEARANCE (NORMAL)
[2023-03-22 07:52] LABS: PLATELET MORPHOLOGY NORMAL APPEARANCE (NORMAL)
--- NOTE | 2023-03-22 22:12 | PROVIDER PROGRESS NOTE ---
Assessment/Plan - Problem List (1) Acute respiratory failure with hypoxia Assessment/Plan: Patient does not use oxygen at home. Cause of her hypoxia appears to be her COPD exacerbation and viral upper res piratory infection Plan: Give supplemental O2 with target O2 sat 88% and above. She is now requiring high flow oxygen to maintain her oxygen saturation greater than 88%. 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 It is highly likely that her worsening respiratory status is secondary to methamphetamine abuse. Oxygenation appears to be improving. Continue IV corticosteroids and bronchodilators. She continue to qualify for inpatient stay. (2) COPD exacerbation Conclusion/Plan: Plan: Continue IV steroids and bronchodilators. (3) Influenza A Conclusion/Plan: Plan: Continue with respiratory/droplet isolation Completed course of Tamiflu (4) Iron deficiency anemia Conclusion/Plan: Patient received 1 dose of IV iron andContinue to monitor CBC intermittently. (5) Sepsis Conclusion/Plan: RESOLVED - Current Meds Current Meds: Current Medications Generic Name Dose Route Start Last Admin Trade Name Freq PRN Reason Stop Dose Admin Albuterol/Ipratropium 3 ml 03/14/23 19:00 03/22/23 18:50 Ipratropium/Albuterol 3 Ml Neb INH 3 ml RTQID TOMÁS Administration Budesonide 0.5 mg 03/14/23 19:00 03/22/23 18:50 Budesonide 0.5 Mg/2 Ml Neb INH 0.5 mg RTBID TOMÁS Administration Cholecalciferol 50 mcg 03/20/23 09:00 03/22/23 09:00 Cholecalciferol 25 Mcg Tablet PO 50 mcg DAILY TOMÁS Administration Cyanocobalamin 500 mcg 03/20/23 09:00 03/22/23 08:59 Cyanocobalamin 500 Mcg Tablet PO 500 mcg DAILY TOMÁS Administration Docusate Sodium 250 - 500 mg 03/21/23 09:00 03/22/23 08:59 Docusate Sodium 250 Mg Capsule PO 250 mg DAILY TOMÁS Administration Enoxaparin Sodium 40 mg 03/15/23 09:00 03/22/23 09:00 Enoxaparin 40 Mg/0.4 Ml Syringe SUBQ 40 mg DAILY TOMÁS Administration Ferrous Sulfate 325 mg 03/17/23 08:00 03/22/23 08:59 Ferrous Sulfate 325 Mg Tablet PO 325 mg DAILYWM TOMÁS Administration Formoterol Fumarate 20 mcg 03/20/23 19:00 03/22/23 18:50 Formoterol Fumarate Neb 20 Mcg/2 Ml INH 20 mcg RTBID TOMÁS Administration Guaifenesin 600 mg 03/14/23 21:00 03/22/23 20:23 Guaifenesin 600 Mg Tablet PO 600 mg BID TOMÁS Administration Ceftriaxone Sodium 2 gm/ 100 mls @ 200 mls/hr 03/20/23 23:15 03/22/23 09:27 Sodium Chloride IV Infused DAILY TOMÁS Infusion Ibuprofen 600 mg 03/14/23 18:38 03/22/23 19:25 Ibuprofen 600 Mg Tablet PO 600 mg Q6HR PRN Administration Mild Pain or Fever>38C(100.4F) Montelukast Sodium 10 mg 03/14/23 21:00 03/22/23 20:23 Montelukast 10 Mg Tablet PO 10 mg QPM TOMÁS Administration Olanzapine 5 mg 03/21/23 21:16 03/22/23 15:06 Olanzapine Odt 5 Mg Tablet TL 5 mg DAILY PRN Administration Nausea / Vomiting Polyethylene Glycol 17 gm 03/20/23 09:00 03/22/23 08:58 Polyethylene Glycol 3350 17 Gm Packet PO 17 gm DAILY TOMÁS Administration Prednisone 40 mg 03/21/23 08:00 03/22/23 09:00 Prednisone 20 Mg Tablet PO 40 mg DAILYWM TOMÁS Administration Multivit/Folic Acid/Iron 1 tab 03/18/23 17:00 03/22/23 09:00 Vitamin Tablet PO 1 tab DAILYWM TOMÁS Administration Senna 8.6 - 17.2 mg 03/21/23 09:00 03/22/23 08:59 Senna 8.6 Mg Tablet PO 8.6 mg DAILY TOMÁS Administration Sodium Chloride 10 ml 03/15/23 01:00 03/22/23 20:25 Sodium Chloride Flush 0.9% 10 Ml Syringe IVP 10 ml 0100,0900,1700 TOMÁS Administration Tramadol HCl 50 mg 03/19/23 23:47 03/22/23 14:05 Tramadol 50 Mg Tablet PO 50 mg Q4HR PRN Administration Moderate Pain (Level 4-6) Zolpidem Tartrate 5 mg 03/14/23 18:21 03/22/23 20:25 Zolpidem 5 Mg Tablet PO 5 mg QPM PRN Administration Insomnia - Lab Result Fish Bone Diagrams: 02/03/24 05:14 03/22/23 05:14 - Additional Planning My Orders: My Active Orders 03/21/23 21:16 OLANZapine ODT [ZyPREXA ODT] 5 mg TL DAILY PRN 03/22/23 Evaluate and Treat OT [OT] Routine Evaluate and Treat PT [PT] Routine 03/22/23 21:38 MAGNESIUM [CHEM] ONCE Subjective - Subjective Patient Reports: Other (Alert. Continues to require high flow oxygen for respiratory support but oxygen concentration has decreased.) Objective Vital Signs: Vital Signs - 24 hr 03/21/23 03/22/23 03/22/23 23:44 07:29 08:30 Temperature 36.2 C L 36.3 C L Heart Rate Heart Rate [ 81 93 Brachial] Respiratory 16 18 Rate Blood Pressure [Left Brachial artery] Blood Pressure 146/88 H 152/86 H [Right Brachial artery] O2 Saturation 94 96 If not protocol 30 30 30 : Oxygen Flow, liters/minute 03/22/23 03/22/23 03/22/23 08:34 11:13 15:15 Temperature Heart Rate 78 84 88 Heart Rate [ Brachial] Respiratory 22 20 20 Rate Blood Pressure [Left Brachial artery] Blood Pressure [Right Brachial artery] O2 Saturation If not protocol 30 30 20 : Oxygen Flow, liters/minute 03/22/23 03/22/23 18:50 19:16 Temperature 36.6 C Heart Rate 74 Heart Rate [ 87 Brachial] Respiratory 18 20 Rate Blood Pressure 167/87 H [Left Brachial artery] Blood Pressure [Right Brachial artery] O2 Saturation 92 If not protocol 25 : Oxygen Flow, liters/minute Oxygen O2 Source [facility]HFNC Oxygen Flow Rate 5 I&O (Last 24 Hrs): Intake and Output Totals x24h 03/20/23 03/21/23 03/22/23 23:59 23:59 23:59 Intake Total 1270 1200 880 Output Total 200 400 Balance 1270 1000 480 General: Alert, No acute distress, Other HEENT: Atraumatic, PERRLA Neck: Supple, No JVD, No thyromegaly Neuro: Alert, Non Focal Cardiovascular: Other (Positive S1-S2 no EXTR heart sounds) Respiratory: Other (Fair air exchange in all lung ortez no wheezing no crackles) Abdomen: Normal bowel sounds, Soft, No tenderness Extremities: No cyanosis, No edema Skin: No rashes - Results Results: Laboratory Results WBC 9.2 x10^3/uL (4.8-10.8) 03/22/23 05:14 RBC 5.20 10^6/uL (4.20-5.40) 03/22/23 05:14 Hgb 10.7 g/dL (12.0-16.0) L 03/22/23 05:14 Hct 41.0 % (37.0-47.0) 03/22/23 05:14 MCV 78.8 fL (81.0-99.0) L 03/22/23 05:14 MCH 20.6 pg (27.0-31.0) L 03/22/23 05:14 MCHC 26.1 g/dL (32.0-36.0) L 03/22/23 05:14 RDW 22.5 % (12.0-15.0) H 03/22/23 05:14 Plt Count 707 10^3/uL (130-450) H 03/22/23 05:14 MPV 8.9 fL (7.9-10.8) 03/22/23 05:14 Neut # (Auto) 6.8 10^3/uL (1.5-6.6) H 03/22/23 05:14 Lymph # (Auto) 1.0 10^3/uL (1.5-3.5) L 03/22/23 05:14 Sebastian # (Auto) 0.8 10^3/uL (0.0-1.0) 03/22/23 05:14 Eos # (Auto) 0.1 10^3/uL (0.0-0.7) 03/22/23 05:14 Baso # (Auto) 0.0 10^3/uL (0.0-0.1) 03/22/23 05:14 Absolute Nucleated RBC 0.02 x10^3/uL 03/22/23 05:14 Nucleated RBC % 0.2 /100WBC 03/22/23 05:14 Manual Slide Review Indicated 03/22/23 05:14 WBC Morphology NORMAL APPEARANCE (NORMAL) 03/22/23 05:14 Platelet Estimate INCREASED (>450,000) (NORMAL) 03/22/23 05:14 Platelet Morphology NORMAL APPEARANCE (NORMAL) 03/22/23 05:14 RBC Morph Micro Appear 3+ ANISOCYTOSIS (NORMAL) 2+ HYPOCHROMASIA (NORMAL) 1+ POLYCHROMASIA (NORMAL) 1+ OVALOCYTES (NORMAL) 2+ STOMATOCYTES (NORMAL) 03/22/23 05:14 RBC Morph Micro Appear 3+ ANISOCYTOSIS (NORMAL) 2+ HYPOCHROMASIA (NORMAL) 1+ POLYCHROMASIA (NORMAL) 1+ OVALOCYTES (NORMAL) 2+ STOMATOCYTES (NORMAL) 03/22/23 05:14 RBC Morph Micro Appear 3+ ANISOCYTOSIS (NORMAL) 2+ HYPOCHROMASIA (NORMAL) 1+ POLYCHROMASIA (NORMAL) 1+ OVALOCYTES (NORMAL) 2+ STOMATOCYTES (NORMAL) 05/10 05:14 RBC Morph Micro Appear 3+ ANISOCYTOSIS (NORMAL) 2+ HYPOCHROMASIA (NORMAL) 1+ POLYCHROMASIA (NORMAL) 1+ OVALOCYTES (NORMAL) 2+ STOMATOCYTES (NORMAL) 03/22/23 05:14 RBC Morph Micro Appear 3+ ANISOCYTOSIS (NORMAL) 2+ HYPOCHROMASIA (NORMAL) 1+ POLYCHROMASIA (NORMAL) 1+ OVALOCYTES (NORMAL) 2+ STOMATOCYTES (NORMAL) 03/22/23 05:14 Sodium 137 mmol/L (135-145) 03/22/23 05:14 Potassium 4.1 mmol/L (3.5-4.5) 03/22/23 05:14 Chloride 98 mmol/L (101-111) L 03/22/23 05:14 Carbon Dioxide 32 mmol/L (21-32) 03/22/23 05:14 Anion Gap 7.0 (6-13) 03/22/23 05:14 BUN 16 mg/dL (6-20) 03/22/23 05:14 Creatinine 0.5 mg/dL (0.6-1.3) L 03/22/23 05:14 Estimated GFR (MDRD) 125 (>89) 03/22/23 05:14 Glucose 80 mg/dL (74-104) 03/22/23 05:14 Lactic Acid < 0.2 mmol/L (0.5-2.2) L 03/14/23 14:56 Calcium 8.7 mg/dL (8.5-10.3) 03/22/23 05:14 Phosphorus 3.3 mg/dL (2.5-5.0) 03/22/23 05:14 Magnesium 1.8 mg/dL (1.7-2.3) 03/15/23 04:47 Iron < 10 ug/dL (50-212) L 03/15/23 04:47 TIBC 477 ug/dL (250-450) H 03/15/23 04:47 % Saturation TNP 03/15/23 04:47 Transferrin 341 mg/dL (203-362) 03/15/23 04:47 Total Bilirubin 0.4 mg/dL (0.2-1.0) 03/14/23 14:56 AST 21 IU/L (10-42) 03/14/23 14:56 ALT 12 IU/L (10-60) 03/14/23 14:56 Alkaline Phosphatase 97 IU/L (42-121) 03/14/23 14:56 Total Protein 7.8 g/dL (6.4-8.9) 03/14/23 14:56 Albumin 3.6 g/dL (3.2-5.5) 03/14/23 14:56 Globulin 4.2 g/dL (2.1-4.2) 03/14/23 14:56 Albumin/Globulin Ratio 0.9 (1.0-2.2) L 03/14/23 14:56 Vitamin B12 238 pg/mL (180-914) 03/18/23 05:55 Folate 2.8 ng/mL (5.90 - >24.8) L 03/18/23 05:55 Urine Color YELLOW 03/14/23 16:05 Urine Clarity CLEAR (CLEAR) 03/14/23 16:05 Urine pH 6.0 PH (5.0-7.5) 03/14/23 16:05 Ur Specific [place] <=1.005 (1.002-1.030) 03/14/23 16:05 Urine Protein NEGATIVE mg/dL (NEGATIVE) 03/14/23 16:05 Urine Glucose (UA) NEGATIVE mg/dL (NEGATIVE) 03/14/23 16:05 Urine Ketones NEGATIVE mg/dL (NEGATIVE) 03/14/23 16:05 Urine Occult Blood NEGATIVE (NEGATIVE) 03/14/23 16:05 Urine Nitrite NEGATIVE (NEGATIVE) 03/14/23 16:05 Urine Bilirubin NEGATIVE (NEGATIVE) 03/14/23 16:05 Urine Urobilinogen 1 (NORMAL) E.U./dL (NORMAL) 03/14/23 16:05 Ur Leukocyte Esterase NEGATIVE (NEGATIVE) 03/14/23 16:05 Urine RBC None Seen /HPF (0-5) 03/14/23 16:05 Urine WBC 0-3 /HPF (0-5) 03/14/23 16:05 Ur Squamous Epith Cells FEW Squamous (<= Few) 03/14/23 16:05 Urine Bacteria None Seen /HPF (None Seen) 03/14/23 16:05 Urine Culture Comments NOT INDICATED 03/14/23 16:05 Nasal Adenovirus (PCR) NOT DETECTED 03/14/23 14:56 Nasal B. parapertussis DNA (PCR) NOT DETECTED 03/14/23 14:56 Nasal Coronavir 229E PCR NOT DETECTED 03/14/23 14:56 Nasal Coronavir HKU1 PCR NOT DETECTED 03/14/23 14:56 Nasal Coronavir NL63 PCR NOT DETECTED 03/14/23 14:56 Nasal Coronavir OC43 PCR NOT DETECTED 03/14/23 14:56 Nasal Enterovir/Rhinovir PCR NOT DETECTED 03/14/23 14:56 Nasal Influ A H1 2009 PCR DETECTED A 03/14/23 14:56 Nasal Influenza B PCR NOT DETECTED 03/14/23 14:56 Nasal Parainfluen 1 PCR NOT DETECTED 03/14/23 14:56 Nasal Parainfluen 2 PCR NOT DETECTED 03/14/23 14:56 Nasal Parainfluen 3 PCR NOT DETECTED 03/14/23 14:56 Nasal Parainfluen 4 PCR NOT DETECTED 03/14/23 14:56 Nasal RSV (PCR) NOT DETECTED 03/14/23 14:56 Nasal B.pertussis DNA PCR NOT DETECTED 03/14/23 14:56 Nasal C.pneumoniae (PCR) NOT DETECTED 03/14/23 14:56 Brandon Human Metapneumo PCR NOT DETECTED 03/14/23 14:56 Nasal M.pneumoniae (PCR) NOT DETECTED 03/14/23 14:56 Nasal SARS-CoV-2 (PCR) NOT DETECTED 03/14/23 14:56 Sepsis Event Note (H) - Evaluation Current Stage of Sepsis: Sepsis Possible source of Sepsis: positive: Pulmonary - Sepsis Criteria Sepsis Criteria: Recorded Heart Rate greater than 90 bpm, Recorded Respiratory Rate greater than 20, Respiratory: Increasing oxygen requirements ABX Reporting Has patient been on IV antibiotics over the past 48 hours?: No Current Medications - Current Medications Current Medications: Active Medications Albuterol/Ipratropium (Ipratropium/Albuterol 3 Ml Neb) 3 ml INH Q4HR PRN PRN Reason: Wheezing Albuterol/Ipratropium (Ipratropium/Albuterol 3 Ml Neb) 3 ml INH RTQID [facility] Last Admin: 03/22/23 18:50 Dose: 3 ml Budesonide (Budesonide 0.5 Mg/2 Ml Neb) 0.5 mg INH RTBID [facility] [place] Last Admin: 03/22/23 18:50 Dose: 0.5 mg Cholecalciferol (Cholecalciferol 25 Mcg Tablet) 50 mcg PO DAILY [facility] [place] Last Admin: 03/22/23 09:00 Dose: 50 mcg Cyanocobalamin (Cyanocobalamin 500 Mcg Tablet) 500 mcg PO DAILY [facility] [place] Last Admin: 03/22/23 08:59 Dose: 500 mcg Docusate Sodium (Docusate Sodium 250 Mg Capsule) 250 - 500 mg PO DAILY [facility] [place] Last Admin: 03/22/23 08:59 Dose: 250 mg Enoxaparin Sodium (Enoxaparin 40 Mg/0.4 Ml Syringe) 40 mg SUBQ DAILY [facility] [place] Last Admin: 03/22/23 09:00 Dose: 40 mg Ferrous Sulfate (Ferrous Sulfate 325 Mg Tablet) 325 mg PO DAILYWM [facility] [place] Last Admin: 03/22/23 08:59 Dose: 325 mg Formoterol Fumarate (Formoterol Fumarate Neb 20 Mcg/2 Ml) 20 mcg INH RTBID [facility] [place] Last Admin: 03/22/23 18:50 Dose: 20 mcg Guaifenesin (Guaifenesin 600 Mg Tablet) 600 mg PO BID [facility] [place] Last Admin: 03/22/23 20:23 Dose: 600 mg Ceftriaxone Sodium 2 gm/ (Sodium Chloride) 100 mls @ 200 mls/hr IV DAILY [facility] [place] Last Infusion: 03/22/23 09:27 Dose: Infused Ibuprofen (Ibuprofen 600 Mg Tablet) 600 mg PO Q6HR PRN PRN Reason: Mild Pain or Fever>38C(100.4F) Last Admin: 03/22/23 19:25 Dose: 600 mg Montelukast Sodium (Montelukast 10 Mg Tablet) 10 mg PO QPM [facility] [place] Last Admin: 03/22/23 20:23 Dose: 10 mg Olanzapine (Olanzapine Odt 5 Mg Tablet) 5 mg TL DAILY PRN PRN Reason: Nausea / Vomiting Last Admin: 03/22/23 15:06 Dose: 5 mg Polyethylene Glycol (Polyethylene Glycol 3350 17 Gm Packet) 17 gm PO DAILY [facility] [place] Last Admin: 03/22/23 08:58 Dose: 17 gm Prednisone (Prednisone 20 Mg Tablet) 40 mg PO DAILYWM [facility] [place] Last Admin: 03/22/23 09:00 Dose: 40 mg Multivit/Folic Acid/Iron ( Vitamin Tablet) 1 tab PO DAILYWM [facility] [place] Last Admin: 03/22/23 09:00 Dose: 1 tab Senna (Senna 8.6 Mg Tablet) 8.6 - 17.2 mg PO DAILY [facility] [place] Last Admin: 03/22/23 08:59 Dose: 8.6 mg Sodium Chloride (Sodium Chloride Flush 0.9% 10 Ml Syringe) 10 ml IVP PRN PRN PRN Reason: NEEDED PER PROVIDER ORDERS Sodium Chloride (Sodium Chloride Flush 0.9% 10 Ml Syringe) 10 ml IVP 0100,0900,1700 [facility] [place] Last Admin: 03/22/23 20:25 Dose: 10 ml Tramadol HCl (Tramadol 50 Mg Tablet) 50 mg PO Q4HR PRN PRN Reason: Moderate Pain (Level 4-6) Last Admin: 03/22/23 14:05 Dose: 50 mg Zolpidem Tartrate (Zolpidem 5 Mg Tablet) 5 mg PO QPM PRN PRN Reason: Insomnia Last Admin: 03/22/23 20:25 Dose: 5 mg
--- NOTE | 2023-03-23 22:36 | PROVIDER PROGRESS NOTE ---
Assessment/Plan - Problem List (1) Acute respiratory failure with hypoxia Assessment/Plan: Patient does not use oxygen at home. Cause of her hypoxia appears to be her COPD exacerbation and viral upper resp iratory infection Plan: Give supplemental O2 with target O2 sat 88% and above. She is now requiring high flow oxygen to maintain her oxygen saturation greater than 88%. 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 It is highly likely that her worsening respiratory status is secondary to methamphetamine abuse. Oxygenation appears to be improving and she has transitioned back to a nasal cannula. Continue IV corticosteroids and bronchodilators. She continue to qualify for inpatient stay. (2) COPD exacerbation Conclusion/Plan: Plan: Continue IV steroids and bronchodilators. (3) Influenza A Conclusion/Plan: Plan: Continue with respiratory/droplet isolation Completed course of Tamiflu (4) Iron deficiency anemia Conclusion/Plan: Patient received 1 dose of IV iron andContinue to monitor CBC intermittently. (5) Sepsis Conclusion/Plan: RESOLVED - Current Meds Current Meds: Current Medications Generic Name Dose Route Start Last Admin Trade Name Freq PRN Reason Stop Dose Admin Albuterol/Ipratropium 3 ml 03/14/23 19:00 03/23/23 15:16 Ipratropium/Albuterol 3 Ml Neb INH 3 ml RTQID TOMÁS Administration Budesonide 0.5 mg 03/14/23 19:00 03/23/23 05:35 Budesonide 0.5 Mg/2 Ml Neb INH 0.5 mg RTBID TOMÁS Administration Cholecalciferol 50 mcg 03/20/23 09:00 03/23/23 09:32 Cholecalciferol 25 Mcg Tablet PO 50 mcg DAILY TOMÁS Administration Cyanocobalamin 500 mcg 03/20/23 09:00 03/23/23 09:31 Cyanocobalamin 500 Mcg Tablet PO 500 mcg DAILY TOMÁS Administration Docusate Sodium 250 - 500 mg 03/21/23 09:00 03/23/23 09:31 Docusate Sodium 250 Mg Capsule PO 250 mg DAILY TOMÁS Administration Enoxaparin Sodium 40 mg 03/15/23 09:00 03/23/23 09:33 Enoxaparin 40 Mg/0.4 Ml Syringe SUBQ 40 mg DAILY TOMÁS Administration Ferrous Sulfate 325 mg 03/17/23 08:00 03/23/23 09:31 Ferrous Sulfate 325 Mg Tablet PO 325 mg DAILYWM TOMÁS Administration Formoterol Fumarate 20 mcg 03/20/23 19:00 03/23/23 05:35 Formoterol Fumarate Neb 20 Mcg/2 Ml INH 20 mcg RTBID [facility] Administration Guaifenesin 600 mg 03/14/23 21:00 03/23/23 20:19 Guaifenesin 600 Mg Tablet PO 600 mg BID TOMÁS Administration Ceftriaxone Sodium 2 gm/ 100 mls @ 200 mls/hr 03/20/23 23:15 03/23/23 10:00 Sodium Chloride IV Infused DAILY OTMÁS Infusion Ibuprofen 600 mg 03/14/23 18:38 03/23/23 02:22 Ibuprofen 600 Mg Tablet PO 600 mg Q6HR PRN Administration Mild Pain or Fever>38C(100.4F) Montelukast Sodium 10 mg 03/14/23 21:00 03/23/23 20:19 Montelukast 10 Mg Tablet PO 10 mg QPM TOMÁS Administration Olanzapine 5 mg 03/21/23 21:16 03/23/23 10:10 Olanzapine Odt 5 Mg Tablet TL 5 mg DAILY PRN Administration Nausea / Vomiting Polyethylene Glycol 17 gm 03/20/23 09:00 03/23/23 09:31 Polyethylene Glycol 3350 17 Gm Packet PO 17 gm DAILY TOMÁS Administration Prednisone 40 mg 03/21/23 08:00 03/23/23 09:31 Prednisone 20 Mg Tablet PO 40 mg DAILYWM [facility] Administration Multivit/Folic Acid/Iron 1 tab 03/18/23 17:00 03/23/23 09:32 Vitamin Tablet PO 1 tab DAILYWM [facility] Administration Senna 8.6 - 17.2 mg 03/21/23 09:00 03/23/23 09:31 Senna 8.6 Mg Tablet PO 8.6 mg DAILY TOMÁS Administration Sodium Chloride 10 ml 03/15/23 01:00 03/23/23 20:19 Sodium Chloride Flush 0.9% 10 Ml Syringe IVP 10 ml 0100,0900,1700 [facility] Administration Tramadol HCl 50 mg 03/19/23 23:47 03/23/23 05:09 Tramadol 50 Mg Tablet PO 50 mg Q4HR PRN Administration Moderate Pain (Level 4-6) Zolpidem Tartrate 5 mg 03/14/23 18:21 03/22/23 20:25 Zolpidem 5 Mg Tablet PO 5 mg QPM PRN Administration Insomnia - Lab Result Gavin Ziegler Diagrams: 03/22/23 05:14 03/22/23 05:14 Subjective - Subjective Patient Reports: Other (Patient reports her breathing appears to be improving. She denies headache chest pain nausea vomiting.) Objective Vital Signs: Vital Signs - 24 hr 03/23/23 03/23/23 03/23/23 00:06 05:35 07:36 Temperature 37.2 C 36.7 C Heart Rate 77 Heart Rate [ 91 89 Brachial] Respiratory 15 18 16 Rate Blood Pressure 161/87 H [Left Brachial artery] Blood Pressure 147/83 H [Right Brachial artery] O2 Saturation 94 90 L O2 Saturation [ Without Activity] If not protocol 20 20 20 : Oxygen Flow, liters/minute 03/23/23 03/23/23 03/23/23 10:43 11:04 15:17 Temperature Heart Rate 78 78 Heart Rate [ Brachial] Respiratory 20 18 Rate Blood Pressure [Left Brachial artery] Blood Pressure [Right Brachial artery] O2 Saturation O2 Saturation [ 92 Without Activity] If not protocol 6 4 : Oxygen Flow, liters/minute 03/23/23 15:21 Temperature 36.3 C L Heart Rate Heart Rate [ 84 Brachial] Respiratory 18 Rate Blood Pressure [Left Brachial artery] Blood Pressure 144/75 H [Right Brachial artery] O2 Saturation 99 O2 Saturation [ Without Activity] If not protocol 4 : Oxygen Flow, liters/minute Oxygen O2 Source [Without Activity] 5L supplemental via NC O2 Source Nasal cannula Oxygen Flow Rate 5 I&O (Last 24 Hrs): Intake and Output Totals x24h 03/21/23 03/22/23 03/23/23 23:59 23:59 23:59 Intake Total 5296 176 2973 Output Total 200 400 Balance 6295 720 5607 General: Alert, No acute distress Neck: Supple, No JVD, No thyromegaly Neuro: Alert, Non Focal Cardiovascular: Regular rate, Normal S1, Normal S2 Respiratory: Other (Fair air exchange in all lung ortez no wheezing no crackles) Abdomen: Normal bowel sounds, Soft, No tenderness Extremities: No cyanosis, No edema Skin: No rashes - Results Results: Laboratory Results WBC 9.2 x10^3/uL (4.8-10.8) 03/22/23 05:14 RBC 5.20 10^6/uL (4.20-5.40) 03/22/23 05:14 Hgb 10.7 g/dL (12.0-16.0) L 03/22/23 05:14 Hct 41.0 % (37.0-47.0) 03/22/23 05:14 MCV 78.8 fL (81.0-99.0) L 03/22/23 05:14 MCH 20.6 pg (27.0-31.0) L 03/22/23 05:14 MCHC 26.1 g/dL (32.0-36.0) L 03/22/23 05:14 RDW 22.5 % (12.0-15.0) H 03/22/23 05:14 Plt Count 707 10^3/uL (130-450) H 03/22/23 05:14 MPV 8.9 fL (7.9-10.8) 03/22/23 05:14 Neut # (Auto) 6.8 10^3/uL (1.5-6.6) H 03/22/23 05:14 Lymph # (Auto) 1.0 10^3/uL (1.5-3.5) L 03/22/23 05:14 [place] # (Auto) 0.8 10^3/uL (0.0-1.0) 03/22/23 05:14 Eos # (Auto) 0.1 10^3/uL (0.0-0.7) 03/22/23 05:14 Baso # (Auto) 0.0 10^3/uL (0.0-0.1) 03/22/23 05:14 Absolute Nucleated RBC 0.02 x10^3/uL 03/22/23 05:14 Nucleated RBC % 0.2 /100WBC 03/22/23 05:14 Manual Slide Review Indicated 03/22/23 05:14 WBC Morphology NORMAL APPEARANCE (NORMAL) 03/22/23 05:14 Platelet Estimate INCREASED (>450,000) (NORMAL) 03/22/23 05:14 Platelet Morphology NORMAL APPEARANCE (NORMAL) 03/22/23 05:14 RBC Morph Micro Appear 3+ ANISOCYTOSIS (NORMAL) 2+ HYPOCHROMASIA (NORMAL) 1+ POLYCHROMASIA (NORMAL) 1+ OVALOCYTES (NORMAL) 2+ STOMATOCYTES (NORMAL) 03/22/23 05:14 RBC Morph Micro Appear 3+ ANISOCYTOSIS (NORMAL) 2+ HYPOCHROMASIA (NORMAL) 1+ POLYCHROMASIA (NORMAL) 1+ OVALOCYTES (NORMAL) 2+ STOMATOCYTES (NORMAL) 03/22/23 05:14 RBC Morph Micro Appear 3+ ANISOCYTOSIS (NORMAL) 2+ HYPOCHROMASIA (NORMAL) 1+ POLYCHROMASIA (NORMAL) 1+ OVALOCYTES (NORMAL) 2+ STOMATOCYTES (NORMAL) 03/22/23 05:14 RBC Morph Micro Appear 3+ ANISOCYTOSIS (NORMAL) 2+ HYPOCHROMASIA (NORMAL) 1+ POLYCHROMASIA (NORMAL) 1+ OVALOCYTES (NORMAL) 2+ STOMATOCYTES (NORMAL) 03/22/23 05:14 RBC Morph Micro Appear 3+ ANISOCYTOSIS (NORMAL) 2+ HYPOCHROMASIA (NORMAL) 1+ POLYCHROMASIA (NORMAL) 1+ OVALOCYTES (NORMAL) 2+ STOMATOCYTES (NORMAL) 03/22/23 05:14 Sodium 137 mmol/L (135-145) 03/22/23 05:14 Potassium 4.1 mmol/L (3.5-4.5) 03/22/23 05:14 Chloride 98 mmol/L (101-111) L 03/22/23 05:14 Carbon Dioxide 32 mmol/L (21-32) 03/22/23 05:14 Anion Gap 7.0 (6-13) 03/22/23 05:14 BUN 16 mg/dL (6-20) 03/22/23 05:14 Creatinine 0.5 mg/dL (0.6-1.3) L 03/22/23 05:14 Estimated GFR (MDRD) 125 (>89) 03/22/23 05:14 Glucose 80 mg/dL (74-104) 03/22/23 05:14 Lactic Acid < 0.2 mmol/L (0.5-2.2) L 03/14/23 14:56 Calcium 8.7 mg/dL (8.5-10.3) 03/22/23 05:14 Phosphorus 3.3 mg/dL (2.5-5.0) 03/22/23 05:14 Magnesium 2.3 mg/dL (1.7-2.3) 03/22/23 21:38 Iron < 10 ug/dL (50-212) L 03/15/23 04:47 TIBC 477 ug/dL (250-450) H 03/15/23 04:47 % Saturation TNP 03/15/23 04:47 Transferrin 341 mg/dL (203-362) 03/15/23 04:47 Total Bilirubin 0.4 mg/dL (0.2-1.0) 03/14/23 14:56 AST 21 IU/L (10-42) 03/14/23 14:56 ALT 12 IU/L (10-60) 03/14/23 14:56 Alkaline Phosphatase 97 IU/L (42-121) 03/14/23 14:56 Total Protein 7.8 g/dL (6.4-8.9) 03/14/23 14:56 Albumin 3.6 g/dL (3.2-5.5) 03/14/23 14:56 Globulin 4.2 g/dL (2.1-4.2) 03/14/23 14:56 Albumin/Globulin Ratio 0.9 (1.0-2.2) L 03/14/23 14:56 Vitamin B12 238 pg/mL (180-914) 03/18/23 05:55 Folate 2.8 ng/mL (5.90 - >24.8) L 03/18/23 05:55 Urine Color YELLOW 03/14/23 16:05 Urine Clarity CLEAR (CLEAR) 03/14/23 16:05 Urine pH 6.0 PH (5.0-7.5) 03/14/23 16:05 Ur Specific [place] <=1.005 (1.002-1.030) 03/14/23 16:05 Urine Protein NEGATIVE mg/dL (NEGATIVE) 03/14/23 16:05 Urine Glucose (UA) NEGATIVE mg/dL (NEGATIVE) 03/14/23 16:05 Urine Ketones NEGATIVE mg/dL (NEGATIVE) 03/14/23 16:05 Urine Occult Blood NEGATIVE (NEGATIVE) 03/14/23 16:05 Urine Nitrite NEGATIVE (NEGATIVE) 03/14/23 16:05 Urine Bilirubin NEGATIVE (NEGATIVE) 03/14/23 16:05 Urine Urobilinogen 1 (NORMAL) E.U./dL (NORMAL) 03/14/23 16:05 Ur Leukocyte Esterase NEGATIVE (NEGATIVE) 03/14/23 16:05 Urine RBC None Seen /HPF (0-5) 03/14/23 16:05 Urine WBC 0-3 /HPF (0-5) 03/14/23 16:05 Ur Squamous Epith Cells FEW Squamous (<= Few) 03/14/23 16:05 Urine Bacteria None Seen /HPF (None Seen) 03/14/23 16:05 Urine Culture Comments NOT INDICATED 03/14/23 16:05 Nasal Adenovirus (PCR) NOT DETECTED 03/14/23 14:56 Nasal B. parapertussis DNA (PCR) NOT DETECTED 03/14/23 14:56 Nasal Coronavir 229E PCR NOT DETECTED 03/14/23 14:56 Nasal Coronavir HKU1 PCR NOT DETECTED 03/14/23 14:56 Nasal Coronavir NL63 PCR NOT DETECTED 03/14/23 14:56 Nasal Coronavir OC43 PCR NOT DETECTED 03/14/23 14:56 Nasal Enterovir/Rhinovir PCR NOT DETECTED 03/14/23 14:56 Nasal Influ A H1 2009 PCR DETECTED A 03/14/23 14:56 Nasal Influenza B PCR NOT DETECTED 03/14/23 14:56 Nasal Parainfluen 1 PCR NOT DETECTED 03/14/23 14:56 Nasal Parainfluen 2 PCR NOT DETECTED 03/14/23 14:56 Nasal Parainfluen 3 PCR NOT DETECTED 03/14/23 14:56 Nasal Parainfluen 4 PCR NOT DETECTED 03/14/23 14:56 Nasal RSV (PCR) NOT DETECTED 03/14/23 14:56 Nasal B.pertussis DNA PCR NOT DETECTED 03/14/23 14:56 Nasal C.pneumoniae (PCR) NOT DETECTED 03/14/23 14:56 Brandon Human Metapneumo PCR NOT DETECTED 03/14/23 14:56 Nasal M.pneumoniae (PCR) NOT DETECTED 03/14/23 14:56 Nasal SARS-CoV-2 (PCR) NOT DETECTED 03/14/23 14:56 Sepsis Event Note (H) - Evaluation Current Stage of Sepsis: Sepsis Possible source of Sepsis: positive: Pulmonary - Sepsis Criteria Sepsis Criteria: Recorded Heart Rate greater than 90 bpm, Recorded Respiratory Rate greater than 20, Respiratory: Increasing oxygen requirements ABX Reporting Has patient been on IV antibiotics over the past 48 hours?: No Current Medications - Current Medications Current Medications: Active Medications Albuterol/Ipratropium (Ipratropium/Albuterol 3 Ml Neb) 3 ml INH Q4HR PRN PRN Reason: Wheezing Albuterol/Ipratropium (Ipratropium/Albuterol 3 Ml Neb) 3 ml INH RTQID [facility] Last Admin: 03/23/23 15:16 Dose: 3 ml Budesonide (Budesonide 0.5 Mg/2 Ml Neb) 0.5 mg INH RTBID [facility] Last Admin: 03/23/23 05:35 Dose: 0.5 mg Cholecalciferol (Cholecalciferol 25 Mcg Tablet) 50 mcg PO DAILY [facility] Last Admin: 03/23/23 09:32 Dose: 50 mcg Cyanocobalamin (Cyanocobalamin 500 Mcg Tablet) 500 mcg PO DAILY [facility] Last Admin: 03/23/23 09:31 Dose: 500 mcg Docusate Sodium (Docusate Sodium 250 Mg Capsule) 250 - 500 mg PO DAILY [facility] Last Admin: 03/23/23 09:31 Dose: 250 mg Enoxaparin Sodium (Enoxaparin 40 Mg/0.4 Ml Syringe) 40 mg SUBQ DAILY [facility] Last Admin: 03/23/23 09:33 Dose: 40 mg Ferrous Sulfate (Ferrous Sulfate 325 Mg Tablet) 325 mg PO DAILYWM [facility] Last Admin: 03/23/23 09:31 Dose: 325 mg Formoterol Fumarate (Formoterol Fumarate Neb 20 Mcg/2 Ml) 20 mcg INH RTBID [facility] Last Admin: 03/23/23 05:35 Dose: 20 mcg Guaifenesin (Guaifenesin 600 Mg Tablet) 600 mg PO BID [facility] Last Admin: 03/23/23 20:19 Dose: 600 mg Ceftriaxone Sodium 2 gm/ (Sodium Chloride) 100 mls @ 200 mls/hr IV DAILY [facility] Last Infusion: 03/23/23 10:00 Dose: Infused Ibuprofen (Ibuprofen 600 Mg Tablet) 600 mg PO Q6HR PRN PRN Reason: Mild Pain or Fever>38C(100.4F) Last Admin: 03/23/23 02:22 Dose: 600 mg Montelukast Sodium (Montelukast 10 Mg Tablet) 10 mg PO QPM [facility] Last Admin: 03/23/23 20:19 Dose: 10 mg Olanzapine (Olanzapine Odt 5 Mg Tablet) 5 mg TL DAILY PRN PRN Reason: Nausea / Vomiting Last Admin: 03/23/23 10:10 Dose: 5 mg Polyethylene Glycol (Polyethylene Glycol 3350 17 Gm Packet) 17 gm PO DAILY [facility] Last Admin: 03/23/23 09:31 Dose: 17 gm Prednisone (Prednisone 20 Mg Tablet) 40 mg PO DAILYWM [facility] Last Admin: 03/23/23 09:31 Dose: 40 mg Multivit/Folic Acid/Iron ( Vitamin Tablet) 1 tab PO DAILYWM [facility] Last Admin: 03/23/23 09:32 Dose: 1 tab Senna (Senna 8.6 Mg Tablet) 8.6 - 17.2 mg PO DAILY [facility] Last Admin: 03/23/23 09:31 Dose: 8.6 mg Sodium Chloride (Sodium Chloride Flush 0.9% 10 Ml Syringe) 10 ml IVP PRN PRN PRN Reason: NEEDED PER PROVIDER ORDERS Sodium Chloride (Sodium Chloride Flush 0.9% 10 Ml Syringe) 10 ml IVP 0100,0900,1700 [facility] Last Admin: 03/23/23 20:19 Dose: 10 ml Tramadol HCl (Tramadol 50 Mg Tablet) 50 mg PO Q4HR PRN PRN Reason: Moderate Pain (Level 4-6) Last Admin: 03/23/23 05:09 Dose: 50 mg Zolpidem Tartrate (Zolpidem 5 Mg Tablet) 5 mg PO QPM PRN PRN Reason: Insomnia Last Admin: 03/22/23 20:25 Dose: 5 mg
[2023-03-24 01:07] LABS: 25-HYDROXY VITAMIN D 3.7 ng/mL (.); 25-HYDROXY VITAMIN D-2 <1.0 ng/mL (.); 25-HYDROXY VITAMIN D-3 3.2 ng/mL (.)
[2023-03-24] MEDS: ERGOCALCIFEROL 50,000 UNIT CAPSULE PO ONE (17:21)
--- NOTE | 2023-03-24 22:53 | PROVIDER PROGRESS NOTE ---
Assessment/Plan - Problem List (1) Acute respiratory failure with hypoxia Assessment/Plan: Patient does not use oxygen at home. Cause of her hypoxia appears to be her COPD exacerbation and viral upper res piratory infection Plan: Give supplemental O2 with target O2 sat 88% and above. She is now requiring high flow oxygen to maintain her oxygen saturation greater than 88%. In the iron pellet tester, patient had a visitor and was found in the room using methamphetamine. It is highly likely that her worsening respiratory status is secondary to methamphetamine abuse. Oxygenation appears to be improving and she has transitioned back to a nasal cannula She is currently on 1 LPM She has transitioned to prednisone and bronchodilators. Patient to be assessed for discharge tomorrow. (2) COPD exacerbation Conclusion/Plan: Plan: Continue IV steroids and bronchodilators. (3) Influenza A Conclusion/Plan: Plan: Continue with respiratory/droplet isolation Completed course of Tamiflu (4) Iron deficiency anemia Conclusion/Plan: Patient received 1 dose of IV iron andContinue to monitor CBC intermittently. (5) Sepsis Conclusion/Plan: RESOLVED - Current Meds Current Meds: Current Medications Generic Name Dose Route Start Last Admin Trade Name Freq PRN Reason Stop Dose Admin Albuterol/Ipratropium 3 ml 03/14/23 19:00 03/24/23 19:14 Ipratropium/Albuterol 3 Ml Neb INH 3 ml RTQID [facility] Administration Budesonide 0.5 mg 03/14/23 19:00 03/24/23 19:14 Budesonide 0.5 Mg/2 Ml Neb INH 0.5 mg RTBID [facility] Administration Cholecalciferol 50 mcg 03/20/23 09:00 03/24/23 08:24 Cholecalciferol 25 Mcg Tablet PO 50 mcg DAILY [facility] Administration Cyanocobalamin 500 mcg 03/20/23 09:00 03/24/23 08:24 Cyanocobalamin 500 Mcg Tablet PO 500 mcg DAILY [facility] Administration Docusate Sodium 250 - 500 mg 03/21/23 09:00 03/24/23 08:25 Docusate Sodium 250 Mg Capsule PO Not Given DAILY [facility] Enoxaparin Sodium 40 mg 03/15/23 09:00 03/24/23 08:24 Enoxaparin 40 Mg/0.4 Ml Syringe SUBQ 40 mg DAILY [facility] Administration Ferrous Sulfate 325 mg 03/17/23 08:00 03/24/23 08:24 Ferrous Sulfate 325 Mg Tablet PO 325 mg DAILYWM [facility] Administration Formoterol Fumarate 20 mcg 03/20/23 19:00 03/24/23 19:14 Formoterol Fumarate Neb 20 Mcg/2 Ml INH 20 mcg RTBID [facility] Administration Guaifenesin 600 mg 03/14/23 21:00 03/24/23 20:09 Guaifenesin 600 Mg Tablet PO 600 mg BID [facility] Administration Ceftriaxone Sodium 2 gm/ 100 mls @ 200 mls/hr 03/20/23 23:15 03/24/23 09:00 Sodium Chloride IV Infused DAILY [facility] Infusion Ibuprofen 600 mg 03/14/23 18:38 03/23/23 02:22 Ibuprofen 600 Mg Tablet PO 600 mg Q6HR PRN Administration Mild Pain or Fever>38C(100.4F) Olanzapine 5 mg 03/21/23 21:16 03/24/23 03:23 Olanzapine Odt 5 Mg Tablet TL 5 mg DAILY PRN Administration Nausea / Vomiting Polyethylene Glycol 17 gm 03/20/23 09:00 03/24/23 08:25 Polyethylene Glycol 3350 17 Gm Packet PO Not Given DAILY [facility] Prednisone 40 mg 03/21/23 08:00 03/24/23 08:24 Prednisone 20 Mg Tablet PO 40 mg DAILYWM [facility] Administration Multivit/Folic Acid/Iron 1 tab 03/18/23 17:00 03/24/23 08:24 Vitamin Tablet PO 1 tab DAILYWM [facility] Administration Senna 8.6 - 17.2 mg 03/21/23 09:00 03/24/23 08:25 Senna 8.6 Mg Tablet PO Not Given DAILY [facility] Sodium Chloride 10 ml 03/15/23 01:00 03/24/23 17:22 Sodium Chloride Flush 0.9% 10 Ml Syringe IVP 10 ml 0100,0900,1700 [facility] Administration Tramadol HCl 50 mg 03/19/23 23:47 03/24/23 20:09 Tramadol 50 Mg Tablet PO 50 mg Q4HR PRN Administration Moderate Pain (Level 4-6) Zolpidem Tartrate 5 mg 03/14/23 18:21 03/24/23 20:09 Zolpidem 5 Mg Tablet PO 5 mg QPM PRN Administration Insomnia - Lab Result Fish Bone Diagrams: 03/22/23 05:14 03/22/23 05:14 Subjective - Subjective Patient Reports: Other (Oxygenation continues to improve. Patient currently on 1 L/min by nasal cannula. She feels her overall condition has improved she has no other complaints today.) Objective Vital Signs: Vital Signs - 24 hr 03/24/23 03/24/23 03/24/23 00:16 07:21 10:23 Temperature 36.7 C 36.7 C Heart Rate 84 Heart Rate [ 81 115 H Brachial] Heart Rate [ Sitting] Heart Rate [ Standing] Heart Rate [ Supine] Respiratory 14 16 16 Rate Blood Pressure 166/83 H 124/72 [Right Brachial artery] Blood Pressure [Sitting] Blood Pressure [Standing] Blood Pressure [Supine] O2 Saturation 96 97 O2 Saturation [ Sitting] O2 Saturation [ Standing] O2 Saturation [ Supine] If not protocol 4 4 4 : Oxygen Flow, liters/minute 03/24/23 03/24/23 03/24/23 10:53 11:06 11:14 Temperature Heart Rate Heart Rate [ 84 Brachial] Heart Rate [ 101 H Sitting] Heart Rate [ 115 H Standing] Heart Rate [ 81 Supine] Respiratory Rate Blood Pressure [Right Brachial artery] Blood Pressure 121/82 H [Sitting] Blood Pressure 107/66 [Standing] Blood Pressure 130/77 [Supine] O2 Saturation 94 90 L O2 Saturation [ 92 Sitting] O2 Saturation [ 92 Standing] O2 Saturation [ 88 L Supine] If not protocol 3 2 : Oxygen Flow, liters/minute 03/24/23 03/24/23 03/24/23 15:54 16:24 19:15 Temperature 36.7 C Heart Rate 90 84 Heart Rate [ 104 H Brachial] Heart Rate [ Sitting] Heart Rate [ Standing] Heart Rate [ Supine] Respiratory 18 20 20 Rate Blood Pressure 134/83 H [Right Brachial artery] Blood Pressure [Sitting] Blood Pressure [Standing] Blood Pressure [Supine] O2 Saturation 94 O2 Saturation [ Sitting] O2 Saturation [ Standing] O2 Saturation [ Supine] If not protocol 2 2 2 : Oxygen Flow, liters/minute Oxygen O2 Source [Without Activity] 5L supplemental via NC O2 Source Nasal cannula Oxygen Flow Rate 5 I&O (Last 24 Hrs): Intake and Output Totals x24h 03/22/23 03/23/23 03/24/23 23:59 23:59 23:59 Intake Total 880 1420 1617 Output Total 400 Balance 480 1420 1617 General: Alert, No acute distress HEENT: Atraumatic Neck: No JVD, No thyromegaly Neuro: Alert, Non Focal Cardiovascular: Regular rate, Normal S1, Normal S2, No murmurs Respiratory: Other (Fair air exchange in all lung ortez no wheezing or crackles.) Abdomen: Normal bowel sounds, Soft, No tenderness Extremities: No cyanosis, No edema Skin: No rashes - Results Results: Laboratory Results WBC 9.2 x10^3/uL (4.8-10.8) 03/22/23 05:14 RBC 5.20 10^6/uL (4.20-5.40) 03/22/23 05:14 Hgb 10.7 g/dL (12.0-16.0) L 03/22/23 05:14 Hct 41.0 % (37.0-47.0) 03/22/23 05:14 MCV 78.8 fL (81.0-99.0) L 03/22/23 05:14 MCH 20.6 pg (27.0-31.0) L 03/22/23 05:14 MCHC 26.1 g/dL (32.0-36.0) L 03/22/23 05:14 RDW 22.5 % (12.0-15.0) H 03/22/23 05:14 Plt Count 707 10^3/uL (130-450) H 03/22/23 05:14 MPV 8.9 fL (7.9-10.8) 03/22/23 05:14 Neut # (Auto) 6.8 10^3/uL (1.5-6.6) H 03/22/23 05:14 Lymph # (Auto) 1.0 10^3/uL (1.5-3.5) L 03/22/23 05:14 [place] # (Auto) 0.8 10^3/uL (0.0-1.0) 03/22/23 05:14 Eos # (Auto) 0.1 10^3/uL (0.0-0.7) 03/22/23 05:14 Baso # (Auto) 0.0 10^3/uL (0.0-0.1) 03/22/23 05:14 Absolute Nucleated RBC 0.02 x10^3/uL 03/22/23 05:14 Nucleated RBC % 0.2 /100WBC 03/22/23 05:14 Manual Slide Review Indicated 03/22/23 05:14 WBC Morphology NORMAL APPEARANCE (NORMAL) 03/22/23 05:14 Platelet Estimate INCREASED (>450,000) (NORMAL) 03/22/23 05:14 Platelet Morphology NORMAL APPEARANCE (NORMAL) 03/22/23 05:14 RBC Morph Micro Appear 3+ ANISOCYTOSIS (NORMAL) 2+ HYPOCHROMASIA (NORMAL) 1+ POLYCHROMASIA (NORMAL) 1+ OVALOCYTES (NORMAL) 2+ STOMATOCYTES (NORMAL) 03/22/23 05:14 RBC Morph Micro Appear 3+ ANISOCYTOSIS (NORMAL) 2+ HYPOCHROMASIA (NORMAL) 1+ POLYCHROMASIA (NORMAL) 1+ OVALOCYTES (NORMAL) 2+ STOMATOCYTES (NORMAL) 03/22/23 05:14 RBC Morph Micro Appear 3+ ANISOCYTOSIS (NORMAL) 2+ HYPOCHROMASIA (NORMAL) 1+ POLYCHROMASIA (NORMAL) 1+ OVALOCYTES (NORMAL) 2+ STOMATOCYTES (NORMAL) 03/22/23 05:14 RBC Morph Micro Appear 3+ ANISOCYTOSIS (NORMAL) 2+ HYPOCHROMASIA (NORMAL) 1+ POLYCHROMASIA (NORMAL) 1+ OVALOCYTES (NORMAL) 2+ STOMATOCYTES (NORMAL) 03/22/23 05:14 RBC Morph Micro Appear 3+ ANISOCYTOSIS (NORMAL) 2+ HYPOCHROMASIA (NORMAL) 1+ POLYCHROMASIA (NORMAL) 1+ OVALOCYTES (NORMAL) 2+ STOMATOCYTES (NORMAL) 03/22/23 05:14 Sodium 137 mmol/L (135-145) 03/22/23 05:14 Potassium 4.1 mmol/L (3.5-4.5) 03/22/23 05:14 Chloride 98 mmol/L (101-111) L 03/22/23 05:14 Carbon Dioxide 32 mmol/L (21-32) 03/22/23 05:14 Anion Gap 7.0 (6-13) 03/22/23 05:14 BUN 16 mg/dL (6-20) 03/22/23 05:14 Creatinine 0.5 mg/dL (0.6-1.3) L 03/22/23 05:14 Estimated GFR (MDRD) 125 (>89) 03/22/23 05:14 Glucose 80 mg/dL (74-104) 03/22/23 05:14 Lactic Acid < 0.2 mmol/L (0.5-2.2) L 03/14/23 14:56 Calcium 8.7 mg/dL (8.5-10.3) 03/22/23 05:14 Phosphorus 3.3 mg/dL (2.5-5.0) 03/22/23 05:14 Magnesium 2.3 mg/dL (1.7-2.3) 03/22/23 21:38 Iron < 10 ug/dL (50-212) L 03/15/23 04:47 TIBC 477 ug/dL (250-450) H 03/15/23 04:47 % Saturation TNP 03/15/23 04:47 Transferrin 341 mg/dL (203-362) 03/15/23 04:47 Total Bilirubin 0.4 mg/dL (0.2-1.0) 03/14/23 14:56 AST 21 IU/L (10-42) 03/14/23 14:56 ALT 12 IU/L (10-60) 03/14/23 14:56 Alkaline Phosphatase 97 IU/L (42-121) 03/14/23 14:56 Total Protein 7.8 g/dL (6.4-8.9) 03/14/23 14:56 Albumin 3.6 g/dL (3.2-5.5) 03/14/23 14:56 Globulin 4.2 g/dL (2.1-4.2) 03/14/23 14:56 Albumin/Globulin Ratio 0.9 (1.0-2.2) L 03/14/23 14:56 Vitamin B12 238 pg/mL (180-914) 03/18/23 05:55 25-OH Vitamin D Total 3.7 ng/mL (.) L 03/18/23 05:55 25-Hydroxy Vitamin D2 <1.0 ng/mL (.) 03/18/23 05:55 25-Hydroxy Vitamin D3 3.2 ng/mL (.) 03/18/23 05:55 Folate 2.8 ng/mL (5.90 - >24.8) L 03/18/23 05:55 Urine Color YELLOW 03/14/23 16:05 Urine Clarity CLEAR (CLEAR) 03/14/23 16:05 Urine pH 6.0 PH (5.0-7.5) 03/14/23 16:05 Ur Specific [place] <=1.005 (1.002-1.030) 03/14/23 16:05 Urine Protein NEGATIVE mg/dL (NEGATIVE) 03/14/23 16:05 Urine Glucose (UA) NEGATIVE mg/dL (NEGATIVE) 03/14/23 16:05 Urine Ketones NEGATIVE mg/dL (NEGATIVE) 03/14/23 16:05 Urine Occult Blood NEGATIVE (NEGATIVE) 03/14/23 16:05 Urine Nitrite NEGATIVE (NEGATIVE) 03/14/23 16:05 Urine Bilirubin NEGATIVE (NEGATIVE) 03/14/23 16:05 Urine Urobilinogen 1 (NORMAL) E.U./dL (NORMAL) 03/14/23 16:05 Ur Leukocyte Esterase NEGATIVE (NEGATIVE) 03/14/23 16:05 Urine RBC None Seen /HPF (0-5) 03/14/23 16:05 Urine WBC 0-3 /HPF (0-5) 03/14/23 16:05 Ur Squamous Epith Cells FEW Squamous (<= Few) 03/14/23 16:05 Urine Bacteria None Seen /HPF (None Seen) 03/14/23 16:05 Urine Culture Comments NOT INDICATED 03/14/23 16:05 Nasal Adenovirus (PCR) NOT DETECTED 03/14/23 14:56 Nasal B. parapertussis DNA (PCR) NOT DETECTED 03/14/23 14:56 Nasal Coronavir 229E PCR NOT DETECTED 03/14/23 14:56 Nasal Coronavir HKU1 PCR NOT DETECTED 03/14/23 14:56 Nasal Coronavir NL63 PCR NOT DETECTED 03/14/23 14:56 Nasal Coronavir OC43 PCR NOT DETECTED 03/14/23 14:56 Nasal Enterovir/Rhinovir PCR NOT DETECTED 03/14/23 14:56 Nasal Influ A H1 2009 PCR DETECTED A 03/14/23 14:56 Nasal Influenza B PCR NOT DETECTED 03/14/23 14:56 Nasal Parainfluen 1 PCR NOT DETECTED 03/14/23 14:56 Nasal Parainfluen 2 PCR NOT DETECTED 03/14/23 14:56 Nasal Parainfluen 3 PCR NOT DETECTED 03/14/23 14:56 Nasal Parainfluen 4 PCR NOT DETECTED 03/14/23 14:56 Nasal RSV (PCR) NOT DETECTED 03/14/23 14:56 Nasal B.pertussis DNA PCR NOT DETECTED 03/14/23 14:56 Nasal C.pneumoniae (PCR) NOT DETECTED 03/14/23 14:56 [place] Human Metapneumo PCR NOT DETECTED 03/14/23 14:56 Nasal M.pneumoniae (PCR) NOT DETECTED 03/14/23 14:56 Nasal SARS-CoV-2 (PCR) NOT DETECTED 03/14/23 14:56 Sepsis Event Note (H) - Evaluation Current Stage of Sepsis: Sepsis Possible source of Sepsis: positive: Pulmonary - Sepsis Criteria Sepsis Criteria: Recorded Heart Rate greater than 90 bpm, Recorded Respiratory Rate greater than 20, Respiratory: Increasing oxygen requirements ABX Reporting Has patient been on IV antibiotics over the past 48 hours?: No Current Medications - Current Medications Current Medications: Active Medications Albuterol/Ipratropium (Ipratropium/Albuterol 3 Ml Neb) 3 ml INH Q4HR PRN PRN Reason: Wheezing Albuterol/Ipratropium (Ipratropium/Albuterol 3 Ml Neb) 3 ml INH RTQID [facility] Last Admin: 03/24/23 19:14 Dose: 3 ml Budesonide (Budesonide 0.5 Mg/2 Ml Neb) 0.5 mg INH RTBID [facility] Last Admin: 03/24/23 19:14 Dose: 0.5 mg Cholecalciferol (Cholecalciferol 25 Mcg Tablet) 50 mcg PO DAILY [facility] Last Admin: 03/24/23 08:24 Dose: 50 mcg Cyanocobalamin (Cyanocobalamin 500 Mcg Tablet) 500 mcg PO DAILY [facility] Last Admin: 03/24/23 08:24 Dose: 500 mcg Docusate Sodium (Docusate Sodium 250 Mg Capsule) 250 - 500 mg PO DAILY [facility] Last Admin: 03/24/23 08:25 Dose: Not Given Enoxaparin Sodium (Enoxaparin 40 Mg/0.4 Ml Syringe) 40 mg SUBQ DAILY [facility] Last Admin: 03/24/23 08:24 Dose: 40 mg Ferrous Sulfate (Ferrous Sulfate 325 Mg Tablet) 325 mg PO DAILYWM [facility] Last Admin: 03/24/23 08:24 Dose: 325 mg Formoterol Fumarate (Formoterol Fumarate Neb 20 Mcg/2 Ml) 20 mcg INH RTBID [facility] Last Admin: 03/24/23 19:14 Dose: 20 mcg Guaifenesin (Guaifenesin 600 Mg Tablet) 600 mg PO BID [facility] Last Admin: 03/24/23 20:09 Dose: 600 mg Ceftriaxone Sodium 2 gm/ (Sodium Chloride) 100 mls @ 200 mls/hr IV DAILY [facility] Last Infusion: 03/24/23 09:00 Dose: Infused Ibuprofen (Ibuprofen 600 Mg Tablet) 600 mg PO Q6HR PRN PRN Reason: Mild Pain or Fever>38C(100.4F) Last Admin: 03/23/23 02:22 Dose: 600 mg Olanzapine (Olanzapine Odt 5 Mg Tablet) 5 mg TL DAILY PRN PRN Reason: Nausea / Vomiting Last Admin: 03/24/23 03:23 Dose: 5 mg Polyethylene Glycol (Polyethylene Glycol 3350 17 Gm Packet) 17 gm PO DAILY [facility] Last Admin: 03/24/23 08:25 Dose: Not Given Prednisone (Prednisone 20 Mg Tablet) 40 mg PO DAILYWM [facility] Last Admin: 03/24/23 08:24 Dose: 40 mg Multivit/Folic Acid/Iron ( Vitamin Tablet) 1 tab PO DAILYWM [facility] Last Admin: 03/24/23 08:24 Dose: 1 tab Senna (Senna 8.6 Mg Tablet) 8.6 - 17.2 mg PO DAILY [facility] Last Admin: 03/24/23 08:25 Dose: Not Given Sodium Chloride (Sodium Chloride Flush 0.9% 10 Ml Syringe) 10 ml IVP PRN PRN PRN Reason: NEEDED PER PROVIDER ORDERS Sodium Chloride (Sodium Chloride Flush 0.9% 10 Ml Syringe) 10 ml IVP 0100,0900,1700 [facility] Last Admin: 03/24/23 17:22 Dose: 10 ml Tramadol HCl (Tramadol 50 Mg Tablet) 50 mg PO Q4HR PRN PRN Reason: Moderate Pain (Level 4-6) Last Admin: 03/24/23 20:09 Dose: 50 mg Zolpidem Tartrate (Zolpidem 5 Mg Tablet) 5 mg PO QPM PRN PRN Reason: Insomnia Last Admin: 03/24/23 20:09 Dose: 5 mg
--- NOTE | 2023-03-25 19:18 | PROVIDER PROGRESS NOTE ---
Assessment/Plan - Problem List (1) Acute respiratory failure with hypoxia Assessment/Plan: Patient does not use oxygen at home. Cause of her hypoxia was her COPD exacerbation and viral upper respiratory infection Several days ago patient had a visitor (son-in-law) and she was found in the room lighting up methamphetamine in tin foil, using alighter, while wearing suppl O2. Her drugs were removed. No visitors allowed now. She then had worsening respiratory status likely secondary to methamphetamine abuse. She has transitioned back to a nasal cannula. She is currently on 1 LPM She has transitioned to prednisone and bronchodilators. Plan: Give supplemental O2 with target O2 sat 88% and above. Titrate down as possible Plan to discharge off any suppl O2, since she was caught with dangerous situation. I educated her about that today. Patient to be assessed for possible discharge tomorrow, if she can be off O2 with activity (2) COPD exacerbation Conclusion/Plan: No wheezing Plan: She has transitioned to prednisone and bronchodilators. (3) Meth abuse Conclusion/Plan: As in #1 (4) Iron deficiency anemia Conclusion/Plan: Patient received 1 dose of IV iron and then started on po Iron. Plan: Continue to monitor CBC intermittently (5) Influenza A Conclusion/Plan: RESOLVED Completed course of Tamiflu Out of isolation (6) Sepsis Conclusion/Plan: RESOLVED - Current Meds Current Meds: Current Medications Generic Name Dose Route Start Last Admin Trade Name Freq PRN Reason Stop Dose Admin Budesonide 0.5 mg 03/14/23 19:00 03/25/23 08:58 Budesonide 0.5 Mg/2 Ml Neb INH Not Given RTBID TOMÁS Cholecalciferol 50 mcg 03/20/23 09:00 03/25/23 08:13 Cholecalciferol 25 Mcg Tablet PO 50 mcg DAILY TOMÁS Administration Cyanocobalamin 500 mcg 03/20/23 09:00 03/25/23 08:13 Cyanocobalamin 500 Mcg Tablet PO 500 mcg DAILY TOMÁS Administration Docusate Sodium 250 - 500 mg 03/21/23 09:00 03/25/23 08:14 Docusate Sodium 250 Mg Capsule PO Not Given DAILY TOMÁS Enoxaparin Sodium 40 mg 03/15/23 09:00 03/25/23 08:14 Enoxaparin 40 Mg/0.4 Ml Syringe SUBQ 40 mg DAILY TOMÁS Administration Ferrous Sulfate 325 mg 03/17/23 08:00 03/25/23 08:13 Ferrous Sulfate 325 Mg Tablet PO 325 mg DAILYWM TOMÁS Administration Formoterol Fumarate 20 mcg 03/20/23 19:00 03/25/23 08:58 Formoterol Fumarate Neb 20 Mcg/2 Ml INH Not Given RTBID TOMÁS Guaifenesin 600 mg 03/14/23 21:00 03/25/23 08:13 Guaifenesin 600 Mg Tablet PO 600 mg BID TOMÁS Administration Ceftriaxone Sodium 2 gm/ 100 mls @ 200 mls/hr 03/20/23 23:15 03/25/23 08:45 Sodium Chloride IV Infused DAILY TOMÁS Infusion Ibuprofen 600 mg 03/14/23 18:38 03/23/23 02:22 Ibuprofen 600 Mg Tablet PO 600 mg Q6HR PRN Administration Mild Pain or Fever>38C(100.4F) Olanzapine 5 mg 03/21/23 21:16 03/24/23 03:23 Olanzapine Odt 5 Mg Tablet TL 5 mg DAILY PRN Administration Nausea / Vomiting Polyethylene Glycol 17 gm 03/20/23 09:00 03/25/23 08:14 Polyethylene Glycol 3350 17 Gm Packet PO Not Given DAILY TOMÁS Prednisone 40 mg 03/21/23 08:00 03/25/23 08:14 Prednisone 20 Mg Tablet PO 40 mg DAILYWM TOMÁS Administration Multivit/Folic Acid/Iron 1 tab 03/18/23 17:00 03/25/23 08:13 Vitamin Tablet PO 1 tab DAILYWM TOMÁS Administration Senna 8.6 - 17.2 mg 03/21/23 09:00 03/25/23 08:15 Senna 8.6 Mg Tablet PO Not Given DAILY [facility] Sodium Chloride 10 ml 03/15/23 01:00 03/25/23 17:39 Sodium Chloride Flush 0.9% 10 Ml Syringe IVP 10 ml 0100,0900,1700 TOMÁS Administration Tramadol HCl 50 mg 03/19/23 23:47 03/24/23 20:09 Tramadol 50 Mg Tablet PO 50 mg Q4HR PRN Administration Moderate Pain (Level 4-6) Zolpidem Tartrate 5 mg 03/14/23 18:21 03/24/23 20:09 Zolpidem 5 Mg Tablet PO 5 mg QPM PRN Administration Insomnia - Lab Result Fish Bone Diagrams: 03/22/23 05:14 03/22/23 05:14 Subjective - Subjective Patient Reports: Resting Comfortably, No Complaints (wearing O2 via n.c.) Objective Vital Signs: Vital Signs - 24 hr 03/24/23 03/25/23 03/25/23 19:15 00:29 02:51 Temperature 36.5 C Heart Rate 84 Heart Rate [ 88 Brachial] Respiratory 20 20 Rate Blood Pressure 156/88 H [Right Brachial artery] O2 Saturation 95 95 If not protocol 2 2 1 : Oxygen Flow, liters/minute 03/25/23 03/25/23 03/25/23 08:21 14:00 15:20 Temperature 36.6 C Heart Rate Heart Rate [ 87 Brachial] Respiratory 18 Rate Blood Pressure 160/71 H [Right Brachial artery] O2 Saturation 93 93 93 If not protocol 2 1 : Oxygen Flow, liters/minute 03/25/23 15:30 Temperature 36.5 C Heart Rate Heart Rate [ 95 Brachial] Respiratory 18 Rate Blood Pressure 156/97 H [Right Brachial artery] O2 Saturation 93 If not protocol : Oxygen Flow, liters/minute Oxygen O2 Source [Without Activity] 5L supplemental via NC O2 Source Room air Oxygen Flow Rate 5 I&O (Last 24 Hrs): Intake and Output Totals x24h 03/23/23 03/24/23 03/25/23 23:59 23:59 23:59 Intake Total 1420 1617 1934 Balance 1420 1617 1934 General: Alert, Oriented x3 HEENT: EOMI, Other (edentulous) Neck: Supple Neuro: Alert, Non Focal Cardiovascular: Regular rate, No murmurs Respiratory: No respiratory distress (poor air mvm) Abdomen: Soft, No tenderness Extremities: No clubbing, No edema, No tenderness/swelling - Results Results: Laboratory Results WBC 9.2 x10^3/uL (4.8-10.8) 03/22/23 05:14 RBC 5.20 10^6/uL (4.20-5.40) 03/22/23 05:14 Hgb 10.7 g/dL (12.0-16.0) L 03/22/23 05:14 Hct 41.0 % (37.0-47.0) 03/22/23 05:14 MCV 78.8 fL (81.0-99.0) L 03/22/23 05:14 MCH 20.6 pg (27.0-31.0) L 03/22/23 05:14 MCHC 26.1 g/dL (32.0-36.0) L 03/22/23 05:14 RDW 22.5 % (12.0-15.0) H 03/22/23 05:14 Plt Count 707 10^3/uL (130-450) H 03/22/23 05:14 MPV 8.9 fL (7.9-10.8) 03/22/23 05:14 Neut # (Auto) 6.8 10^3/uL (1.5-6.6) H 03/22/23 05:14 Lymph # (Auto) 1.0 10^3/uL (1.5-3.5) L 03/22/23 05:14 Callahan # (Auto) 0.8 10^3/uL (0.0-1.0) 03/22/23 05:14 Eos # (Auto) 0.1 10^3/uL (0.0-0.7) 03/22/23 05:14 Baso # (Auto) 0.0 10^3/uL (0.0-0.1) 03/22/23 05:14 Absolute Nucleated RBC 0.02 x10^3/uL 03/22/23 05:14 Nucleated RBC % 0.2 /100WBC 03/22/23 05:14 Manual Slide Review Indicated 03/22/23 05:14 WBC Morphology NORMAL APPEARANCE (NORMAL) 03/22/23 05:14 Platelet Estimate INCREASED (>450,000) (NORMAL) 03/22/23 05:14 Platelet Morphology NORMAL APPEARANCE (NORMAL) 03/22/23 05:14 RBC Morph Micro Appear 3+ ANISOCYTOSIS (NORMAL) 2+ HYPOCHROMASIA (NORMAL) 1+ POLYCHROMASIA (NORMAL) 1+ OVALOCYTES (NORMAL) 2+ STOMATOCYTES (NORMAL) 03/22/23 05:14 RBC Morph Micro Appear 3+ ANISOCYTOSIS (NORMAL) 2+ HYPOCHROMASIA (NORMAL) 1+ POLYCHROMASIA (NORMAL) 1+ OVALOCYTES (NORMAL) 2+ STOMATOCYTES (NORMAL) 03/22/23 05:14 RBC Morph Micro Appear 3+ ANISOCYTOSIS (NORMAL) 2+ HYPOCHROMASIA (NORMAL) 1+ POLYCHROMASIA (NORMAL) 1+ OVALOCYTES (NORMAL) 2+ STOMATOCYTES (NORMAL) 03/22/23 05:14 RBC Morph Micro Appear 3+ ANISOCYTOSIS (NORMAL) 2+ HYPOCHROMASIA (NORMAL) 1+ POLYCHROMASIA (NORMAL) 1+ OVALOCYTES (NORMAL) 2+ STOMATOCYTES (NORMAL) 03/22/23 05:14 RBC Morph Micro Appear 3+ ANISOCYTOSIS (NORMAL) 2+ HYPOCHROMASIA (NORMAL) 1+ POLYCHROMASIA (NORMAL) 1+ OVALOCYTES (NORMAL) 2+ STOMATOCYTES (NORMAL) 03/22/23 05:14 Sodium 137 mmol/L (135-145) 03/22/23 05:14 Potassium 4.1 mmol/L (3.5-4.5) 03/22/23 05:14 Chloride 98 mmol/L (101-111) L 03/22/23 05:14 Carbon Dioxide 32 mmol/L (21-32) 03/22/23 05:14 Anion Gap 7.0 (6-13) 03/22/23 05:14 BUN 16 mg/dL (6-20) 03/22/23 05:14 Creatinine 0.5 mg/dL (0.6-1.3) L 03/22/23 05:14 Estimated GFR (MDRD) 125 (>89) 03/22/23 05:14 Glucose 80 mg/dL (74-104) 03/22/23 05:14 Lactic Acid < 0.2 mmol/L (0.5-2.2) L 03/14/23 14:56 Calcium 8.7 mg/dL (8.5-10.3) 03/22/23 05:14 Phosphorus 3.3 mg/dL (2.5-5.0) 03/22/23 05:14 Magnesium 2.3 mg/dL (1.7-2.3) 03/22/23 21:38 Iron < 10 ug/dL (50-212) L 03/15/23 04:47 TIBC 477 ug/dL (250-450) H 03/15/23 04:47 % Saturation TNP 03/15/23 04:47 Transferrin 341 mg/dL (203-362) 03/15/23 04:47 Total Bilirubin 0.4 mg/dL (0.2-1.0) 03/14/23 14:56 AST 21 IU/L (10-42) 03/14/23 14:56 ALT 12 IU/L (10-60) 03/14/23 14:56 Alkaline Phosphatase 97 IU/L (42-121) 03/14/23 14:56 Total Protein 7.8 g/dL (6.4-8.9) 03/14/23 14:56 Albumin 3.6 g/dL (3.2-5.5) 03/14/23 14:56 Globulin 4.2 g/dL (2.1-4.2) 03/14/23 14:56 Albumin/Globulin Ratio 0.9 (1.0-2.2) L 03/14/23 14:56 Vitamin B12 238 pg/mL (180-914) 03/18/23 05:55 25-OH Vitamin D Total 3.7 ng/mL (.) L 03/18/23 05:55 25-Hydroxy Vitamin D2 <1.0 ng/mL (.) 03/18/23 05:55 25-Hydroxy Vitamin D3 3.2 ng/mL (.) 03/18/23 05:55 Folate 2.8 ng/mL (5.90 - >24.8) L 03/18/23 05:55 Urine Color YELLOW 03/14/23 16:05 Urine Clarity CLEAR (CLEAR) 03/14/23 16:05 Urine pH 6.0 PH (5.0-7.5) 03/14/23 16:05 Ur Specific [place] <=1.005 (1.002-1.030) 03/14/23 16:05 Urine Protein NEGATIVE mg/dL (NEGATIVE) 03/14/23 16:05 Urine Glucose (UA) NEGATIVE mg/dL (NEGATIVE) 03/14/23 16:05 Urine Ketones NEGATIVE mg/dL (NEGATIVE) 03/14/23 16:05 Urine Occult Blood NEGATIVE (NEGATIVE) 03/14/23 16:05 Urine Nitrite NEGATIVE (NEGATIVE) 03/14/23 16:05 Urine Bilirubin NEGATIVE (NEGATIVE) 03/14/23 16:05 Urine Urobilinogen 1 (NORMAL) E.U./dL (NORMAL) 03/14/23 16:05 Ur Leukocyte Esterase NEGATIVE (NEGATIVE) 03/14/23 16:05 Urine RBC None Seen /HPF (0-5) 03/14/23 16:05 Urine WBC 0-3 /HPF (0-5) 03/14/23 16:05 Ur Squamous Epith Cells FEW Squamous (<= Few) 03/14/23 16:05 Urine Bacteria None Seen /HPF (None Seen) 03/14/23 16:05 Urine Culture Comments NOT INDICATED 03/14/23 16:05 Nasal Adenovirus (PCR) NOT DETECTED 03/14/23 14:56 Nasal B. parapertussis DNA (PCR) NOT DETECTED 03/14/23 14:56 Nasal Coronavir 229E PCR NOT DETECTED 03/14/23 14:56 Nasal Coronavir HKU1 PCR NOT DETECTED 03/14/23 14:56 Nasal Coronavir NL63 PCR NOT DETECTED 03/14/23 14:56 Nasal Coronavir OC43 PCR NOT DETECTED 03/14/23 14:56 Nasal Enterovir/Rhinovir PCR NOT DETECTED 03/14/23 14:56 Nasal Influ A H1 2009 PCR DETECTED A 03/14/23 14:56 Nasal Influenza B PCR NOT DETECTED 03/14/23 14:56 Nasal Parainfluen 1 PCR NOT DETECTED 03/14/23 14:56 Nasal Parainfluen 2 PCR NOT DETECTED 03/14/23 14:56 Nasal Parainfluen 3 PCR NOT DETECTED 03/14/23 14:56 Nasal Parainfluen 4 PCR NOT DETECTED 03/14/23 14:56 Nasal RSV (PCR) NOT DETECTED 03/14/23 14:56 Nasal B.pertussis DNA PCR NOT DETECTED 03/14/23 14:56 Nasal C.pneumoniae (PCR) NOT DETECTED 03/14/23 14:56 Brandon Human Metapneumo PCR NOT DETECTED 03/14/23 14:56 Nasal M.pneumoniae (PCR) NOT DETECTED 03/14/23 14:56 Nasal SARS-CoV-2 (PCR) NOT DETECTED 03/14/23 14:56 Sepsis Event Note (H) - Evaluation Current Stage of Sepsis: Sepsis Possible source of Sepsis: positive: Pulmonary - Sepsis Criteria Sepsis Criteria: Recorded Heart Rate greater than 90 bpm, Recorded Respiratory Rate greater than 20, Respiratory: Increasing oxygen requirements
[2023-03-25 23:54] VITALS: O2SAT 92
--- NOTE | 2023-03-26 12:38 | Discharge Plan ---
Discharge Plan Problem Reviewed?: Yes Disposition: 01 Home, Self Care Condition: Stable Prescriptions: predniSONE [Deltasone] 10 - 20 mg PO DAILY #10 tab Ferrous Sulfate [Feosol] 325 mg PO DAILY #30 tab Cyanocobalamin [Vitamin B-12] 500 mcg PO DAILY #30 tab Cholecalciferol [Vitamin D3] 50 mcg PO DAILY #30 tab Diet: Regular Activity Restrictions: Activity as Tolerated Shower Restrictions: No Driving Restrictions: No Instruction Topics: Abuse Meth Abuse and Addiction Health Concerns: You needed to be hospitalized for treating a COPD exacerbation causing low blood oxygen levels, it was caused by you having influenza A. You received and completed a course of Tamiflu. You were on bronchodilators by mist. You needed supplemental oxygen which was being slowly decreased. We then found you to be inhaling meth in your room and you had said you had a prior history of you using illegal drugs. We then needed your supplemental oxygen setting to be down to you breathing room air, so that you would not be discharged home with oxygen and when using a clinical research associate, it would create a fire. You are being discharged home today. Please resume your usual COPD medications. You are being sent home with instructions to do a slow steroid (Prednisone) taper down to off, over several days. It is important for you to take this taper as directed, so that you do not go back into a COPD exacerbation. Please STOP USING ILLEGAL DRUGS. We found you to have deficiencies of vitamin D, folate and vitamin B-12. These have all been prescribed for you to take after discharge. The prescriptions were electronically sent to your pharmacy. Plan of Treatment: As above. Care Goals: Improvement in symptoms and stabilization are the goals. Assessment: Instructions are provided for you as a reminder. Additional Instructions or Follow Up instructions: If you have new or worsening symptoms, call your Primary Care Provider for advice, or go to a Walk-In Clinic, or come to the ER. When you establish with a Primary Care Provider, that doctor could refer you to attend clases at [facility], which is in this building on the ground floor. Pulmonary rehab helps strengthen your lungs. Follow-Up Care: [facility] - Pulmonary No Smoking: If you smoke, Please STOP! Call for help.
--- NOTE | 2023-03-26 12:49 | DISCHARGE SUMMARY ---
Discharge Summary Admit Date: 03/14/23 Discharge Date: 03/26/23 Discharging Provider: Dr Lanny Knight Primary Care Provider: -None- Condition at Discharge: Stable Discharge Disposition: 01 Home, Self Care - HPI History of Present Illness: This is a 63 y/o female with medical history significant for COPD, asthma, fibromyalgia, migraines, brain tumor, methamphetamine and heroin abuse. There is a prior history of illicit drug overdose in 2020. The patient presented to the ER with complaints of 4 days of SOA, cough and generalized malaise. She reported her sputum was productive and foul-smelling. She is not on oxygen at home. She was found to have an O2 saturation of 85% on room air and was tachypneic with respiratory rate 26. Initial heart rate was 121. Patient received nebulized bronchodilators x 2 and continued to have wheezing and evidence of a COPD exacerbation. She was trialed on room air again and dropped her O2 saturation to 81%. Workup shows a normal WBC, Hemoglobin 9.4 with MCV 77, normal electrolytes, BUN/creat and lactic acid, her chest x-ray is without infiltrates, but respiratory PCR is (+) for Influenza A H1. The patient also received steroids and Tamiflu in the ER. The ED provider then spoke to me about this patient. She will be admitted to manage acute respiratory failure with hypoxia, and a COPD exacerbation probably caused by his viral influenza infection. - HOSPITAL COURSE Hospital Course: (1) Sepsis She presented with criteria for sepsis. These resolved with treatment of her COPD exacerbation. (2) Acute respiratory failure with hypoxia Patient does not use oxygen at home. The cause of her hypoxia was her COPD exacerbation and viral upper respiratory infection. She was put on suppl O2. At mid-hospital stay, she had a visitor (son-in-law) and she was found in the room using a aquaculture farm manager, and lighting up methamphetamine in tin foil, while wearing suppl O2. Her drugs were removed. No visitors were allowed any longer. She then had worsening respiratory status likely due to methamphetamine abuse. She was eventually transitioned back to O2 suppl via nasal cannula. We had to await until she did not require any suppl O2, since she was caught in that dangerous situation, before she could be discharged. (3) COPD exacerbation She was put on nebs, steroids, Mucinex and slowly improved. (4) Influenza A She completed a course of Tamiflu. She was in droplet isolation while here. (5) Meth abuse There was a Hx of this, and she claimed she had stopped. However, she was found using meth in her hospital room while here. SW saw her to give resources. (6) Iron deficiency anemia Hgb was 9.4. Patient received 1 dose of IV iron and then started on po Iron. She did not get a blood transfusion. Hgb was 10.7 at discharge. - ALLERGIES Allergies/Adverse Reactions: Allergies Allergy/AdvReac Type Severity Reaction Status Date / Time acetaminophen [From Vicodin] Allergy Rash Verified 03/14/23 18:07 hydrocodone bitartrate * Allergy Rash Verified 03/14/23 18:07 [From Vicodin] - MEDICATIONS Home Medications: Ambulatory Orders Medication Instructions Recorded Confirmed Albuterol 2.5 mg INH Q4H PRN #30 neb 02/03/21 03/15/23 Albuterol Sulf [Ventolin Hfa 1 - 2 puffs INH Q4HR PRN #1 inhaler 03/20/21 03/15/23 Inhaler] Furosemide [Lasix] 20 mg PO DAILY #7 tablet 02/25/22 03/15/23 Cholecalciferol [Vitamin D3] 50 mcg PO DAILY #30 tab 03/26/23 Cyanocobalamin [Vitamin B-12] 500 mcg PO DAILY #30 tab 03/26/23 Ferrous Sulfate [Feosol] 325 mg PO DAILY #30 tab 03/26/23 predniSONE [Deltasone] 10 - 20 mg PO DAILY #10 tab 03/26/23 - PHYSICAL EXAM AT DISCHARGE General Appearance: positive: No acute distress, Alert, Other (Cachectic (BMI 23)) Eyes Bilateral: positive: Normal inspection, EOMI ENT: positive: No signs of dehydration, Other (Edentulous) Neck: positive: Nml inspection, No JVD Respiratory: positive: No respiratory distress, Breath sounds nml Cardiovascular: positive: Regular rate & rhythm, No murmur Abdomen: positive: Non-tender, Nml bowel sounds, No distention Skin: positive: Warm, Dry, Pallor Extremities: positive: Non-tender, No pedal edema Neurologic/Psychiatric: positive: Oriented x3, CN's nml (2-12), Motor nml - LABS Result Diagrams: 03/22/23 05:14 03/22/23 05:14 - DIAGNOSTIC IMAGING Diagnostic Imaging Results: Final report reviewed - SEPSIS Current Stage of Sepsis: Sepsis Possible source of Sepsis: Pulmonary Sepsis Criteria: Recorded Heart Rate greater than 90 bpm, Recorded Respiratory Rate greater than 20, Respiratory: Increasing oxygen requirements - FOLLOW UP Follow Up: See PCP or continue Walk-In clinic care after discharge. - TIME SPENT Time Spent in Discharge (Minutes): 40
[2023-03-26 14:21] VITALS: BP 139/82
== END 2023-03-26 16:45 | disposition home or self-care (01) | DRG 871 ==
LOC: ED 14:22 → MS2 18:21
PROVIDERS: ADMIT Internal Medicine; ATTEND Internal Medicine
DX: A41.9 Sepsis, unspecified organism (principal); J96.01 Acute respiratory failure with hypoxia; J44.1 Chronic obstructive pulmonary disease with (acute) exacerbation; J10.1 Influenza due to other identified influenza virus with other respiratory manifestations; F15.10 Other stimulant abuse, uncomplicated; D50.9 Iron deficiency anemia, unspecified; F11.10 Opioid abuse, uncomplicated; I10 Essential (primary) hypertension; R94.31 Abnormal electrocardiogram [ECG] [EKG]; Z20.822 Contact with and (suspected) exposure to COVID-19; Z79.899 Other long term (current) drug therapy; Z80.0 Family history of malignant neoplasm of digestive organs; Z81.1 Family history of alcohol abuse and dependence; Z82.49 Family history of ischemic heart disease and other diseases of the circulatory system; Z83.6 Family history of other diseases of the respiratory system; Z87.891 Personal history of nicotine dependence; Z90.49 Acquired absence of other specified parts of digestive tract; Z90.710 Acquired absence of both cervix and uterus
CPT/HCPCS: 36415; 80048; 80053; 81001; 82272; 82306; 82607; 82746; 83540; 83605; 83735; 84100; 84466; 85025; 87040; 87070; 87077; 87086; 87181; 87205; 87633; 93005; 94640; 94667; 94668; 94761; 96374; 96375; 99285

== ENCOUNTER 2023-09-25 12:01 | Outpatient (CLI) | payer MEDICAID ==
--- NOTE | 2023-09-25 14:35 | XRAY Report ---
PROCEDURE: Hip w/Pelvis 2-3V RT INDICATIONS: HIP PAIN, RIGHT, CHRONIC TECHNIQUE: 2 views of the hip were acquired. COMPARISON: 07/20/2021. FINDINGS: Bones: No fractures or dislocations. Severe right hip degeneration with severe joint space narrowing , [id number] articulation, subchondral sclerosis and cystic changes and osteophytosis. There is par tial collapse of the femoral head, increased compared to prior. Mild left hip degeneration. No suspi cious bony lesions. Degenerative changes of the visualized lower lumbar spine and pubic symphysis. Diffusely decreased osseous mineralization. Soft tissues: No suspicious soft tissue calcifications or masses. IMPRESSION: Severe right hip joint degeneration is progressed compared to prior with increased collapse of the ri ght femoral head. Etiology such as avascular necrosis are not excluded and clinical correlation is re commended. Reviewed by: Arcadio Holder MD on 09/25/2023 2:34 PM PDT Approved by: Arcadio Holder MD on 09/25/2023 2:34 PM PDT Station ID: [id number]
== END 2023-09-25 12:02 | disposition home or self-care (01) ==
LOC: DI.N 12:01
PROVIDERS: ATTEND Nurse Practitioner Family
DX: M16.11 Unilateral primary osteoarthritis, right hip (principal)